=== PATIENT | male | born 1935 | race Caucasian/White ===

== ENCOUNTER → 2017-06-02 11:00 | Outpatient (CLI) | payer MEDICARE, SELFPAY ==
[2017-06-02 12:34] LABS: ALB/GLOB Ratio 1.3 RATIO (0.9-2.4); AST(SGOT) 25 U/L (15-37); Alanine Aminotransfer ALT/SGPT 25 U/L (16-61); Albumin, Serum 3.9 g/dL (3.2-5.0); Alkaline Phosphatase 61 U/L (45-117); Anion Gap 9 (5-15); BUN 21 mg/dL (7-18); BUN/Creat Ratio 18.6 RATIO (10-20); Calcium,Total 8.5 mg/dL (8.5-10.1); Chloride 100 mmol/L (98-107); Creatinine, Serum 1.13 mg/dL (0.70-1.30); EST Glomerular Filtration Rate 66 mL/min (>60); Est Glom Filt Rate - Afr Amer 80 mL/min (>60); Globulin 3.1 g/dL (2.2-4.2); Glucose 90 mg/dL (70-110); Potassium 3.8 mmol/L (3.5-5.1); Sodium Level 137 mmol/L (136-145)
== END ==
PROVIDERS: Nurse Practitioner Family; Family Provider Internal Medicine; PCP Internal Medicine; Visit Provider Internal Medicine
DX: I10 Essential (primary) hypertension (principal)
CPT/HCPCS: 36415; 80053

== ENCOUNTER 2017-10-09 04:00 | Emergency (ER) | payer MEDICARE, SELFPAY ==
--- NOTE | 2017-10-09 04:00 | DT_ITS ---
This patient was seen during an EMR downtime October 05, 2017 - October 12, 2017. This patient may have a combination of paper and electronic documentation or all paper documentation. All documentation is viewable within the e-chart portion of [employer] for each patient visit.
--- NOTE | 2017-10-09 04:00 | RAD_ITS ---
STUDY: X-RAY CHEST REASON FOR EXAM: Male, 81 years old. Trauma TECHNIQUE: Frontal view COMPARISON: None. FINDINGS: The lungs are clear and expanded. There is no demonstrated pleural abnormality. Normal size heart. Normal mediastinum and vy. Normal visualized pulmonary arteries. Normal visualized aortic arch and descending thoracic aorta. Normal visualized thoracic spine. Normal visualized ribs, clavicles, and shoulders. There is no demonstrated abnormality of the visualized soft tissue structures of the upper abdomen. RAD/Chest 1 View IMPRESSION: There is NO acute cardiopulmonary abnormality. Electronically Signed: Kee Wong MD at 5:21 EDT , Service support ,
--- NOTE | 2017-10-09 04:12 | CT_ITS ---
STUDY: CT BRAIN WITHOUT CONTRAST REASON FOR EXAM: Male, 81 years old. Trauma RADIATION DOSAGE (If Supplied By Facility): CTDIvol = ( ) mGy, DLP = ( ) mGycm TECHNIQUE: Transaxial CT imaging of the brain was performed without administration of intravenous contrast material. Individualized dose optimization techniques were used for this CT. COMPARISON: None. FINDINGS: Normal soft tissue structures. Normal calvarium. There is mild cerebral atrophy with widening of the extra-axial spaces and ventricular dilatation. There are areas of decreased attenuation within the white matter tracts of the supratentorial brain, consistent with microvascular disease changes. Normal basal ganglia and thalami. Normal brainstem. There is no intracranial hemorrhage. There are no findings of an acute ischemic infarction. Normal visualized paranasal sinuses. IMPRESSION: There is NO skull fracture or intracranial hemorrhage. Electronically Signed: Kee Wong MD at 5:23 EDT , Service support , STUDY: CT CERVICAL SPINE WITHOUT CONTRAST REASON FOR EXAM: Male, 81 years old. Trauma RADIATION DOSAGE (If Supplied By Facility): CTDIvol = ( ) mGy, DLP = ( ) mGycm TECHNIQUE: High resolution transaxial imaging was performed without contrast material. Sagittal and coronal images were reconstructed. Individualized dose optimization techniques were used for this CT. COMPARISON: None FINDINGS: There are NO fractures. There is grade 1 anterior spondylolisthesis of C4 over C5 due to facet arthropathy. There is loss of disc height with osteophytic ridging at C5-C6. There is NO facet dislocation. The prevertebral soft tissues are normal in thickness. IMPRESSION: There are degenerative changes as noted. There is NO fracture. Electronically Signed: Kee Wong MD at 5:26 EDT , Service support , STUDY: CT FACIAL BONES WITHOUT CONTRAST REASON FOR EXAM: Male, 81 years old. Trauma RADIATION DOSAGE (If Supplied By Facility): CTDIvol = ( ) mGy, DLP = ( ) mGycm TECHNIQUE: The patient was scanned in a multi detector CT scanner. Sagittal and coronal images were reconstructed. Individualized dose optimization techniques were used for this CT. COMPARISON: None. FINDINGS: There is LEFT temporal soft tissue swelling. There is NO hematoma. Normal orbital harkins and orbital contents. Normal nasal bones and anterior nasal spine. Normal facial bones. There is no demonstrated fracture. Normal visualized paranasal sinuses. CT/Sinus/Facial Bone IMPRESSION: There is NO acute bony abnormality. Electronically Signed: Kee Wong MD at 5:28 EDT , Service support ,
--- NOTE | 2017-10-09 04:12 | CT_ITS ---
STUDY: CT BRAIN WITHOUT CONTRAST REASON FOR EXAM: Male, 81 years old. Trauma RADIATION DOSAGE (If Supplied By Facility): CTDIvol = ( ) mGy, DLP = ( ) mGycm TECHNIQUE: Transaxial CT imaging of the brain was performed without administration of intravenous contrast material. Individualized dose optimization techniques were used for this CT. COMPARISON: None. FINDINGS: Normal soft tissue structures. Normal calvarium. There is mild cerebral atrophy with widening of the extra-axial spaces and ventricular dilatation. There are areas of decreased attenuation within the white matter tracts of the supratentorial brain, consistent with microvascular disease changes. Normal basal ganglia and thalami. Normal brainstem. There is no intracranial hemorrhage. There are no findings of an acute ischemic infarction. Normal visualized paranasal sinuses. IMPRESSION: There is NO skull fracture or intracranial hemorrhage. Electronically Signed: Kee Wong MD at 5:23 EDT , Service support , STUDY: CT CERVICAL SPINE WITHOUT CONTRAST REASON FOR EXAM: Male, 81 years old. Trauma RADIATION DOSAGE (If Supplied By Facility): CTDIvol = ( ) mGy, DLP = ( ) mGycm TECHNIQUE: High resolution transaxial imaging was performed without contrast material. Sagittal and coronal images were reconstructed. Individualized dose optimization techniques were used for this CT. COMPARISON: None FINDINGS: There are NO fractures. There is grade 1 anterior spondylolisthesis of C4 over C5 due to facet arthropathy. There is loss of disc height with osteophytic ridging at C5-C6. There is NO facet dislocation. The prevertebral soft tissues are normal in thickness. IMPRESSION: There are degenerative changes as noted. There is NO fracture. Electronically Signed: Kee Wong MD at 5:26 EDT , Service support , STUDY: CT FACIAL BONES WITHOUT CONTRAST REASON FOR EXAM: Male, 81 years old. Trauma RADIATION DOSAGE (If Supplied By Facility): CTDIvol = ( ) mGy, DLP = ( ) mGycm TECHNIQUE: The patient was scanned in a multi detector CT scanner. Sagittal and coronal images were reconstructed. Individualized dose optimization techniques were used for this CT. COMPARISON: None. FINDINGS: There is LEFT temporal soft tissue swelling. There is NO hematoma. Normal orbital harkins and orbital contents. Normal nasal bones and anterior nasal spine. Normal facial bones. There is no demonstrated fracture. Normal visualized paranasal sinuses. CT/Brain/Head without Contrast IMPRESSION: There is NO acute bony abnormality. Electronically Signed: Kee Wong MD at 5:28 EDT , Service support ,
--- NOTE | 2017-10-09 04:12 | CT_ITS ---
STUDY: CT BRAIN WITHOUT CONTRAST REASON FOR EXAM: Male, 81 years old. Trauma RADIATION DOSAGE (If Supplied By Facility): CTDIvol = ( ) mGy, DLP = ( ) mGycm TECHNIQUE: Transaxial CT imaging of the brain was performed without administration of intravenous contrast material. Individualized dose optimization techniques were used for this CT. COMPARISON: None. FINDINGS: Normal soft tissue structures. Normal calvarium. There is mild cerebral atrophy with widening of the extra-axial spaces and ventricular dilatation. There are areas of decreased attenuation within the white matter tracts of the supratentorial brain, consistent with microvascular disease changes. Normal basal ganglia and thalami. Normal brainstem. There is no intracranial hemorrhage. There are no findings of an acute ischemic infarction. Normal visualized paranasal sinuses. IMPRESSION: There is NO skull fracture or intracranial hemorrhage. Electronically Signed: Kee Wong MD at 5:23 EDT , Service support , STUDY: CT CERVICAL SPINE WITHOUT CONTRAST REASON FOR EXAM: Male, 81 years old. Trauma RADIATION DOSAGE (If Supplied By Facility): CTDIvol = ( ) mGy, DLP = ( ) mGycm TECHNIQUE: High resolution transaxial imaging was performed without contrast material. Sagittal and coronal images were reconstructed. Individualized dose optimization techniques were used for this CT. COMPARISON: None FINDINGS: There are NO fractures. There is grade 1 anterior spondylolisthesis of C4 over C5 due to facet arthropathy. There is loss of disc height with osteophytic ridging at C5-C6. There is NO facet dislocation. The prevertebral soft tissues are normal in thickness. IMPRESSION: There are degenerative changes as noted. There is NO fracture. Electronically Signed: Kee Wong MD at 5:26 EDT , Service support , STUDY: CT FACIAL BONES WITHOUT CONTRAST REASON FOR EXAM: Male, 81 years old. Trauma RADIATION DOSAGE (If Supplied By Facility): CTDIvol = ( ) mGy, DLP = ( ) mGycm TECHNIQUE: The patient was scanned in a multi detector CT scanner. Sagittal and coronal images were reconstructed. Individualized dose optimization techniques were used for this CT. COMPARISON: None. FINDINGS: There is LEFT temporal soft tissue swelling. There is NO hematoma. Normal orbital harkins and orbital contents. Normal nasal bones and anterior nasal spine. Normal facial bones. There is no demonstrated fracture. Normal visualized paranasal sinuses. CT/Spine Cervical without Contras IMPRESSION: There is NO acute bony abnormality. Electronically Signed: Kee Wong MD at 5:28 EDT , Service support ,
--- NOTE | 2017-10-09 13:33 | EKG12_ITS ---
Test Reason : FALL Blood Pressure : / mmHG Vent. Rate : 075 BPM Atrial Rate : 075 BPM P-R Int : 216 ms QRS Dur : 110 ms QT Int : 404 ms P-R-T Axes : 047 -48 062 degrees QTc Int : 451 ms Sinus rhythm with 1st degree A-V block Left anterior fascicular block Abnormal ECG Confirmed by KRISHAN JC, TARA ([id number]), order editor KIARA BRANTLEY ([id number]) on 10/14/2017 5:26:12 PM Referred By: Tony Barrera Confirmed By:TARA NICKERSON MD
[2017-10-12 17:26] LABS: Hematocrit 43.2 % (40-54); Hemoglobin 14.6 g/dl (13.0-16.5); Mean Corp Hgb Conc 33.8 g/gl (32-36); Mean Corpuscular Hgb 29.7 pg (27.0-32.0); Mean Corpuscular Volume 87.8 fL (80-94); Mean Platelet Vol. 10.7 fl (6.2-12.0); POSITIVE COUNT NO; POSITIVE DIFFERENTIAL NO; POSITIVE MORPHOLOGY NO; Platelet Count 157 K/mm3 (150-450); RBC Distribution Width CV 14.2 % (11.6-14.6); RBC Distribution Width SD 45.6 fl (35.1-43.9); Red Blood Count 4.92 M/mm3 (4.6-6.2); White Blood Count 7.7 K/mm3 (4.4-11.0)
[2017-10-12 17:27] LABS: Absolute Neutrophil Count 5.6 X10^3/uL (2.0-7.7); Basophil# 0.04 X10^3/uL; Basophil% 0.5 % (0-1); Eosinophil# 0.23 X10^3/uL; International Normalized Ratio 1.2; Lymphocyte % 16.9 % (19-41); Monocyte# 0.53 X10^3/uL; Monocyte% 6.9 % (0-10); Neutrophil # 5.59 X10^3/uL (2.7-7.7); Neutrophil % 72.4 % (47-70); Prothrombin Time (Protime)PT. 14.8 SECONDS (11.7-14.9)
[2017-10-12 22:59] LABS: Anion Gap 11 (5-15); BUN 24 mg/dL (7-18); BUN/Creat Ratio 17.3 RATIO (10-20); Calcium,Total 8.5 mg/dL (8.5-10.1); Chloride 103 mmol/L (98-107); Creatinine, Serum 1.39 mg/dL (0.70-1.30); EST Glomerular Filtration Rate 52 mL/min (>60); Est Glom Filt Rate - Afr Amer 63 mL/min (>60); Glucose 129 mg/dL (74-106); Potassium 3.3 mmol/L (3.5-5.1); Sodium Level 140 mmol/L (136-145)
== END 2017-10-09 06:15 | disposition home or self-care (01) ==
PROVIDERS: Emergency Provider Emergency Medicine; Family Provider Internal Medicine; PCP Internal Medicine
DX: S00.81XA Abrasion of other part of head, initial encounter (principal); S51.012A Laceration without foreign body of left elbow, initial encounter; W19.XXXA Unspecified fall, initial encounter; Y93.9 Activity, unspecified; Y92.009 Unspecified place in unspecified non-institutional (private) residence as the place of occurrence of the external cause; Z86.718 Personal history of other venous thrombosis and embolism; Z79.01 Long term (current) use of anticoagulants; Z79.82 Long term (current) use of aspirin; Z79.899 Other long term (current) drug therapy
CPT/HCPCS: 36415; 70450; 70486; 71045; 72125; 80048; 84484; 85025; 85610; 90715; 93005; 99285

== ENCOUNTER → 2017-10-19 14:55 | Outpatient (CLI) | payer MEDICARE, SELFPAY ==
[2017-10-19 16:40] LABS: International Normalized Ratio 1.1; Prothrombin Time (Protime)PT. 13.8 SECONDS (11.7-14.9)
== END ==
PROVIDERS: Family Provider Internal Medicine; PCP Internal Medicine; Visit Provider Internal Medicine
DX: Z86.718 Personal history of other venous thrombosis and embolism (principal)
CPT/HCPCS: 36415; 85610

== ENCOUNTER → 2018-02-22 10:28 | Outpatient (CLI) | payer MEDICARE, SELFPAY ==
[2018-02-22 12:55] LABS: Anion Gap 10 (5-15); BUN 21 mg/dL (7-18); BUN/Creat Ratio 17.5 RATIO (10-20); Calcium,Total 9.1 mg/dL (8.5-10.1); Chloride 98 mmol/L (98-107); Cholesterol 266 mg/dL (200); EST Glomerular Filtration Rate 62 mL/min (>60); Est Glom Filt Rate - Afr Amer 75 mL/min (>60); Glucose 95 mg/dL (74-106); High Density Lipoprotein 45 mg/dL; Potassium 3.3 mmol/L (3.5-5.1); Sodium Level 137 mmol/L (136-145); Triglycerides 196 mg/dL; Very Low Density Lipoprotein 39 mg/dL (5-40)
== END ==
PROVIDERS: Family Provider Internal Medicine; PCP Internal Medicine; Referring Provider Internal Medicine; Visit Provider Internal Medicine
DX: I10 Essential (primary) hypertension (principal)
CPT/HCPCS: 36415; 80048; 80061

== ENCOUNTER 2018-06-19 05:50 | Emergency (ER) | payer MEDICARE, SELFPAY ==
[2018-03-29 08:17] VITALS: BMI 27.0
[2018-06-19 05:52] VITALS: BP 140/75; PULSE 81; RESP 18; TEMP 37.1; O2SAT 94; BMI 27.6
--- NOTE | 2018-06-19 06:04 | CT_ITS ---
STUDY: CT BRAIN WITHOUT CONTRAST REASON FOR EXAM: Male, 82 years old. Small cell carcinoma RADIATION DOSAGE (If Supplied By Facility): CTDIvol = ( 44.99 ) mGy, DLP = ( 779.24 ) mGycm TECHNIQUE: Transaxial CT imaging of the brain was performed without administration of intravenous contrast material. Individualized dose optimization techniques were used for this CT. COMPARISON: October 09, 2017 FINDINGS: Normal soft tissue structures. Normal calvarium. There is mild cerebral atrophy with widening of the extra-axial spaces and ventricular dilatation. There are areas of decreased attenuation within the white matter tracts of the supratentorial brain, consistent with microvascular disease changes. Normal basal ganglia and thalami. Normal brainstem. There is mild cerebellar atrophy. There is no intracranial hemorrhage. There are no findings of an acute ischemic infarction. Normal visualized paranasal sinuses. CT/Brain/Head without Contrast IMPRESSION: There is NO acute intracranial abnormality. Electronically Signed: Kee Wong MD at 6:58 EST , Service support ,
[2018-06-19 06:44] LABS: Absolute Lymphocyte Count 1.45 X10^3/ul (0.83-4.51); Absolute Neutrophil Count 5.4 X10^3/uL (2.0-7.7); Basophil# 0.04 X10^3/uL; Basophil% 0.5 % (0-1); Eosinophil# 0.44 X10^3/uL; Eosinophils% 5.6 % (0-5); Hematocrit 44.5 % (40-54); Hemoglobin 14.7 g/dl (13.0-16.5); Lymphocyte # 1.45 X10^3/ul (4.0); Lymphocyte % 18.5 % (19-41); Mean Corpuscular Hgb 29.6 pg (27.0-32.0); Mean Corpuscular Volume 89.7 fL (80-94); Mean Platelet Vol. 10.5 fl (6.2-12.0); Monocyte# 0.48 X10^3/uL; Monocyte% 6.1 % (0-10); Neutrophil # 5.39 X10^3/uL (2.7-7.7); Neutrophil % 68.9 % (47-70); Platelet Count 149 K/mm3 (150-450); RBC Distribution Width CV 14.3 % (11.6-14.6); RBC Distribution Width SD 46.6 fl (35.1-43.9); Red Blood Count 4.96 M/mm3 (4.6-6.2); White Blood Count 7.8 K/mm3 (4.4-11.0)
[2018-06-19 06:49] LABS: POSITIVE COUNT NO; POSITIVE DIFFERENTIAL NO; POSITIVE MORPHOLOGY NO
[2018-06-19 06:50] LABS: Prothrombin Time (Protime)PT. 13.2 SECONDS (11.7-14.9)
[2018-06-19 06:52] LABS: Anion Gap 8 (5-15); BUN 23 mg/dL (7-18); BUN/Creat Ratio 18.4 RATIO (10-20); Calcium,Total 8.2 mg/dL (8.5-10.1); Chloride 104 mmol/L (98-107); Creatinine, Serum 1.25 mg/dL (0.70-1.30); EST Glomerular Filtration Rate 59 mL/min (>60); Est Glom Filt Rate - Afr Amer 71 mL/min (>60); Estimated Creatinine Clearance 44.84 ml/min; Glucose 106 mg/dL (74-106); Sodium Level 139 mmol/L (136-145)
--- NOTE | 2018-06-19 07:23 | NURSING ---
FAMILY DR LOPES
--- NOTE | 2018-06-19 07:24 | ED.VISSUMM ---
- ER Visit Summary Date of Service: 06/19/18 Chief Complaint: [] Seizure History of Present Illness: The patient is a 82 M resents with an unresponsive episode possible seizure. His stated he had a tonic-clonic jerky episode while laying in bed for 5 minutes. He did bite his tongue. He had a postictal state. Brought in by EMS. This never happened before. He is on Coumadin for history of a remote DVT. No history no history of CVA TIA or brain lesions Physical Examination: [] Vital signs reviewed General: Well-nourished well-developed Head: Normocephalic atraumatic Eyes: Pupils equal round and reactive to light extraocular movements intact ENT: TMs clear no hemotympanum no trauma the tip of the tongue has a small abrasion Neck: Nontender full range of motion Cardiovascular: Regular rate rhythm no murmurs normal S1-S2 Respiratory: No distress clear to auscultation bilaterally chest nontender Abdomen: Soft nontender nondistended normal bowel sounds no masses Back: Nontender no CVA tenderness Extremities: Nontender active range of motion ?4 extremities no trauma Skin: Normal color no trauma Neuro alert oriented cranial nerves II through XII intact normal strength sensation reflexes Test Results: [] Emergency Department Course and Treatment: [] Lab work obtained. Potassium is 3.0. This was replaced. BUN 23. INR is 1.0. Patient stated that he is only taking his Coumadin every other day because he bruises. Instructed that he has to take it daily or his INR will not be therapeutic. CT head negative. Discussed with Dr. Aviles as the patient does not want to be admitted. Dr. Aviles stated that we should start him on Keppra 500 twice a day. Patient stated he will have his INR rechecked as an outpatient once he is taking it normally for a week. Treatment Plan: [] Disposition: [] Impression: [] New-onset seizure Subtherapeutic INR secondary to not taking it frequent enough This note was generated with [employer] dictation software. It may contain incorrect words, spelling, and punctuation that were not noted in review of the chart prior to signing ED Disposition - Plan for ED Patient: Referrals: Konstantin Monteiro MD [Primary Care Provider] -
--- NOTE | 2018-06-19 07:26 | ED.DEP ---
ED Disposition - Plan for ED Patient: Disposition: Home or Assisted Living Instructions: Seizures and Epilepsy Prescriptions: Levetiracetam [Keppra] 500 mg PO BID 30 Days #60 tab Referrals: Konstantin Monteiro MD [Primary Care Provider] - Kwabena Aviles MD [STAFF PHYSICIAN] -
[2018-06-19] MEDS: levETIRAcetam 500 MG Tablet PO (07:45)
[2018-06-19 08:23] VITALS: BP 126/79; PULSE 66; RESP 16; O2SAT 95
[2018-06-19 08:24] VITALS: BP 126/79; PULSE 66; RESP 16; O2SAT 95
== END 2018-06-19 08:30 | disposition home or self-care (01) ==
PROVIDERS: Emergency Provider Emergency Medicine; Family Provider Internal Medicine; PCP Internal Medicine
DX: R56.9 Unspecified convulsions (principal); I25.10 Atherosclerotic heart disease of native coronary artery without angina pectoris; I10 Essential (primary) hypertension; N40.0 Benign prostatic hyperplasia without lower urinary tract symptoms; Z86.718 Personal history of other venous thrombosis and embolism; Z79.01 Long term (current) use of anticoagulants; Z79.82 Long term (current) use of aspirin; Z79.899 Other long term (current) drug therapy
CPT/HCPCS: 70450; 80048; 85025; 85610; 99284; A4216

== ENCOUNTER → 2018-06-22 11:39 | Outpatient (CLI) | payer MEDICARE, SELFPAY ==
[2018-06-19 05:52] VITALS: BMI 27.6
[2018-06-22 14:11] LABS: Anion Gap 8 (5-15); BUN 22 mg/dL (7-18); Calcium,Total 8.6 mg/dL (8.5-10.1); Chloride 102 mmol/L (98-107); Creatinine, Serum 1.22 mg/dL (0.70-1.30); EST Glomerular Filtration Rate 61 mL/min (>60); Est Glom Filt Rate - Afr Amer 73 mL/min (>60); Glucose 95 mg/dL (74-106); Potassium 3.5 mmol/L (3.5-5.1); Sodium Level 138 mmol/L (136-145)
[2018-06-22 14:13] LABS: Prothrombin Time (Protime)PT. 13.3 SECONDS (11.7-14.9)
== END ==
PROVIDERS: Nurse Practitioner Family; Family Provider Internal Medicine; PCP Internal Medicine; Referring Provider Internal Medicine; Visit Provider Internal Medicine
DX: E87.6 Hypokalemia (principal); Z79.01 Long term (current) use of anticoagulants
CPT/HCPCS: 36415; 80048; 85610

== ENCOUNTER → 2018-09-28 08:23 | Outpatient (CLI) | payer MEDICARE, SELFPAY ==
[2018-09-28 08:08] VITALS: BMI 27.6
[2018-09-28 12:49] LABS: Anion Gap 10 (5-15); BUN 20 mg/dL (7-18); BUN/Creat Ratio 14.7 RATIO (10-20); Calcium,Total 8.9 mg/dL (8.5-10.1); Chloride 104 mmol/L (98-107); Creatinine, Serum 1.36 mg/dL (0.70-1.30); EST Glomerular Filtration Rate 53 mL/min (>60); Est Glom Filt Rate - Afr Amer 65 mL/min (>60); Glucose 101 mg/dL (74-106); Potassium 3.7 mmol/L (3.5-5.1); Sodium Level 139 mmol/L (136-145)
== END ==
PROVIDERS: Family Provider Internal Medicine; PCP Internal Medicine; Visit Provider Internal Medicine
DX: I10 Essential (primary) hypertension (principal); E87.6 Hypokalemia
CPT/HCPCS: 36415; 80048

== ENCOUNTER → 2019-04-06 08:52 | Outpatient (CLI) | payer MEDICARE, SELFPAY ==
[2019-04-06 08:35] VITALS: BMI 27.6
[2019-04-06 12:45] LABS: Absolute Lymphocyte Count 1.51 X10^3/uL (0.83-4.51); Absolute Neutrophil Count 4.1 X10^3/uL (2.0-7.7); Basophil# 0.06 X10^3/uL; Basophil% 0.9 % (0-1); Eosinophil# 0.35 X10^3/uL; Eosinophils% 5.3 % (0-5); Hematocrit 46.8 % (40-54); Hemoglobin 15.7 g/dL (13.0-16.5); Lymphocyte # 1.51 X10^3/ul (4.0); Lymphocyte % 22.7 % (19-41); Mean Corp Hgb Conc 33.5 g/dL (32-36); Mean Corpuscular Hgb 30.1 pg (27.0-32.0); Mean Corpuscular Volume 89.7 fL (80-94); Monocyte# 0.64 X10^3/uL; Monocyte% 9.6 % (0-10); NRBC Flagged by Analyzer 0 % (0-5); Neutrophil # 4.05 X10^3/uL (2.7-7.7); Platelet Count 172 K/mm3 (150-450); RBC Distribution Width CV 14.1 % (11.6-14.6); RBC Distribution Width SD 46.4 fl (35.1-43.9); Red Blood Count 5.22 M/mm3 (4.6-6.2); White Blood Count 6.6 K/mm3 (4.4-11.0)
[2019-04-06 13:27] LABS: ALB/GLOB Ratio 1.1 RATIO (0.9-2.4); AST(SGOT) 20 U/L (15-37); Alanine Aminotransfer ALT/SGPT 21 U/L (16-61); Albumin, Serum 3.8 g/dL (3.2-5.0); Alkaline Phosphatase 68 U/L (45-117); Anion Gap 8 (5-15); BUN 24 mg/dL (7-18); Calcium,Total 8.8 mg/dL (8.5-10.1); Chloride 103 mmol/L (98-107); Creatinine, Serum 1.41 mg/dL (0.70-1.30); EST Glomerular Filtration Rate 51 mL/min (>60); Est Glom Filt Rate - Afr Amer 62 mL/min (>60); Globulin 3.5 g/dL (2.2-4.2); Glucose 91 mg/dL (74-106); Potassium 3.7 mmol/L (3.5-5.1); Protein, Total 7.3 g/dL (6.4-8.2); Sodium Level 138 mmol/L (136-145)
== END ==
PROVIDERS: Family Provider Internal Medicine; PCP Internal Medicine; Visit Provider Internal Medicine
DX: R56.9 Unspecified convulsions (principal); I10 Essential (primary) hypertension
CPT/HCPCS: 36415; 80053; 85025

== ENCOUNTER → 2020-02-22 15:31 | Outpatient (CLI) | payer MEDICARE, SELFPAY ==
[2020-02-22 14:56] VITALS: BMI 26.6
[2020-02-22 15:34] LABS: Bacteria 0 SEEN /hpf (None Seen); Mucous, Urine 0 SEEN /hpf (<or=2+); White Blood Cells 0 SEEN /hpf (0-5)
--- NOTE | 2020-02-22 16:00 | RAD_ITS ---
STUDY: X-RAY - ABDOMEN/PELVIS REASON FOR EXAM: Male, 84 years old. Lower back pain radiating into the abdomen. Hematuria. TECHNIQUE: Two AP supine views of the abdomen and pelvis. COMPARISON: CT of the abdomen and pelvis, 01/31/2012. FINDINGS: Normal visualized lung bases. There is evidence of median sternotomy. The heart is normal in size. There is an unremarkable bowel gas pattern. There is no evidence of obstruction. There is no small bowel dilatation. There is no demonstrated free abdominal air. The visualized liver, spleen and kidneys are grossly normal in size and morphology. Normal soft tissue structures. There are diffuse degenerative changes of the visualized lumbar spine. RAD/Abdomen Single View IMPRESSION: No evidence of acute intra-abdominal or pelvic process. Electronically Signed: Esvin Ashraf DO at 17:04 EDT Tel [phone], Service support ,
[2020-02-22 17:50] LABS: Color, Urine Yellow (Yellow); Glucose, Dipstick Normal (Normal); Ketone-Dipstick Negative (Negative); Leukocyte Esterase-Dipstick Negative /ul (Negative); Nitrite-Dipstick Negative (Negative); Occult Blood-Urine 150 /ul (Negative); Protein-Dipstick 30 mg/dl (Negative); Specific Gravity, Urine 1.015 (1.002-1.030); Urine Bilirubin Dipstick Negative (Negative); Urine Clarity Clear (Clear); Urine Urobilinogen Normal (Normal); Urine pH 6.5 (5.0 - 8.0)
[2020-02-22 18:08] LABS: Red Blood Cells-Urine 5-10 SEEN /hpf (0-5); Squamous Epithelial Cells - UA 0-5 SEEN /hpf (0-5)
== END ==
PROVIDERS: PCP Internal Medicine; Referring Provider Nurse Practitioner Family; Visit Provider Nurse Practitioner Family
DX: R10.9 Unspecified abdominal pain (principal); R31.9 Hematuria, unspecified; N40.0 Benign prostatic hyperplasia without lower urinary tract symptoms
CPT/HCPCS: 74018; 81001; 87086; 87088

== ENCOUNTER 2020-02-25 03:53 | Emergency (ER) | payer MEDICARE, SELFPAY ==
[2020-02-22 14:56] VITALS: BMI 26.6
[2020-02-25 03:54] VITALS: BP 168/83; PULSE 85; RESP 18; TEMP 36.8; O2SAT 95; BMI 27.5
--- NOTE | 2020-02-25 04:02 | CT_ITS ---
HISTORY: SEIZURE/HX OF SEIZURES, aortic valve replacement, HTN, HLD,BPH and basal cell ca ADDITIONAL HISTORY: None provided. COMPARISON: 06/19/2018 EXAMINATION/TECHNIQUE: CT Head or Brain W/O Contrast Injection. Axial, coronal and sagittal images. Number of images including paperwork: 250. A radiation dose optimization technique was used for this scan. FINDINGS: BRAIN: No acute hemorrhage or mass. No definite acute infarct; MRI more sensitive. White matter hypodensity is nonspecific but most commonly seen with chronic ischemic changes. Generalized atrophy. VENTRICULAR SYSTEM: No hydrocephalus. PARANASAL SINUSES AND MASTOIDS: No air-fluid level in the imaged extent. Mild mucosal thickening noted. ORBITS: Unremarkable imaged extent. SKELETON AND SOFT TISSUES: Calvarium intact. ASPECTS score: Not applicable. CT/Brain/Head without Contrast IMPRESSION: No acute intracranial abnormality. Chronic involutional and white matter changes. Individualized dose optimization techniques were used for this CT. at 0500 Reported and signed by: Divya Garcia MD Electronically Signed: Divya Garcia MD at 5:00 EDT Tel , Service support ,
--- NOTE | 2020-02-25 04:02 | EKG12_ITS ---
Test Reason : SEIZURE Blood Pressure : / mmHG Vent. Rate : 065 BPM Atrial Rate : 065 BPM P-R Int : 208 ms QRS Dur : 114 ms QT Int : 420 ms P-R-T Axes : 048 -52 078 degrees QTc Int : 436 ms Normal sinus rhythm with sinus arrhythmia Left anterior fascicular block Poor R wave progression Inferior LA, age undetermined, cannot be excluded Abnormal ECG Confirmed by ANIA JC, REMI ([id number]), material expeditor MADHURI BARTON ([id number]) on 02/27/2020 11:42:08 AM Referred By: BECCA Confirmed By:REMI JORGE MD
--- NOTE | 2020-02-25 04:03 | ED.DCSUM_ITS ---
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 pt states he currently feels fine. Narrative: 84-year-old male presents by EMS at 4 AM for a seizure that he had while he was sleeping. His sleeps in a different room because of snoring, she heard a loud sound that woke her up, found him in the bed shaking. He did not fall. No recent injuries, no recent illnesses. He had 2 seizures in the past. Around 2 years ago, he was placed on Keppra for that reason. He has had no seizure since. As a result, the patient himself decided to discontinue his own Keppra about a month ago. He and his are unsure of the reason that he has seizures. He takes no anticoagulants and states he has been compliant with his other medications. - Past Medical History (1) History of basal cell carcinoma Status: Chronic (2) History of deep venous thrombosis Status: Chronic (3) Hypokalemia Status: Chronic (4) Aortic valve disease Status: Chronic (5) BPH (benign prostatic hyperplasia) Status: Chronic (6) Coronary heart disease Status: Chronic (7) Hyperlipidemia Status: Chronic (8) Hypertension Status: Chronic Past Medical History - Allergies and Home Meds Allergies/Adverse Reactions: Allergies No Known Allergies Allergy (Verified 02/25/20 03:54) Primary Care Physician: Konstantin Monteiro MD [Primary Care Provider] - 1 Week Surgical History: - - Aortic valve replacement Lives: Spouse/ Significant Other Smoking Status: Never smoker Review of Systems General: Denies: Chills, Fever, Sweats Eyes: Denies: Visual changes - bilaterally, Diplopia ENT: Denies: Rhinorrhea, Sore throat Cardiovascular: Denies: Chest pain, Palpitations Respiratory: Denies: Dyspnea, Cough, Dyspnea on exertion Gastrointestinal: Denies: Abdominal pain, Nausea, Vomiting, Diarrhea, Melena, Hematochezia Genitourinary: Denies: Dysuria, Hematuria, Frequency Musculoskeletal: Denies: Back pain, Extremity Pain Skin: Denies: Rash, Wounds Neurological: Denies: Headache, Weakness, Numbness Physical Exam Vital Signs/Narrative: Vital Signs Temp Pulse Resp BP Pulse Ox 02/25/20 03:54 98.3 F 85 18 168/83 H 95 Inital Vital Signs reviewed: Yes General: Well nourished, Well developed, No Acute Distress Head: Normocephalic, Atraumatic Eyes: Perrl, EOMI ENT: Moist mucous membranes, No rhinorrhea Neck: Supple, Nontender, No JVD Cardiovascular: Regular rate, Regular rhythm, Murmur - Harsh crescendo- decrescendo systolic 3/6 Respiratory: No distress, CTA bilaterally, Chest nontender Abdomen: Soft, Nontender, Nondistended, Normal bowel sounds Back: Nontender, Normal Inspection Extremities: Nontender, No edema. Negative for: Calf Tenderness Skin: Normal color, No rash, No Trauma Neurological: Alert, Oriented x3, Cranial nerves II-XII grossly intact, Normal Strength, Normal Sensation Psychological: Normal affect, Normal Mood Diagnostic/Tx/Re-eval Impressions Brain CT 02/25/20 04:02 IMPRESSION: No acute intracranial abnormality. Chronic involutional and white matter changes. Individualized dose optimization techniques were used for this CT. at 0500 Reported and signed by: Divya Garcia MD Electronically Signed: Divya Garcia MD at 5:00 EDT Tel , Service support , 02/25/20 04:02 Brain/Head without Contrast [CT] Stat Laboratory Results 02/25/20 02/25/20 04:05 04:05 WBC 8.4 RBC 5.05 Hgb 15.1 Hct 45.6 MCV 90.3 MCH 29.9 MCHC 33.1 RDW Std Deviation 46.3 H RDW Coeff of Cristhian 13.9 Plt Count 165 MPV 10.6 Immature Gran % (Auto) 0.500 Neut % (Auto) 70.2 H Lymph % (Auto) 17.4 L Ulster % (Auto) 7.5 Eos % (Auto) 3.8 Baso % (Auto) 0.6 Absolute Neuts (auto) 5.9 Absolute Lymphs (auto) 1.46 Nucleated RBC % 0 Sodium 136 Potassium 4.6 Chloride 102 Carbon Dioxide 27.0 Anion Gap 7 BUN 24 H Creatinine 1.49 H Estim Creat Clear Calc 36.34 Est GFR (MDRD) Af Amer 58 L Est GFR (MDRD) Non-Af 48 L BUN/Creatinine Ratio 16.1 Glucose 115 H Calcium 8.6 - Rhythm Strip Rhythm Strip: Sinus Rhythm Rate: 65 Ectopy: None - EKG Initial EKG Interpretation: Sinus Rhythm, No Acute Injury Pattern, LAFB Prior: Unchanged - Medical Decision Making As above work-up negative/unremarkable. Patient had no further seizure activity in the emergency department. His arrived, and later we all spoke, they think that they were told at [facility] that his seizures were likely related to his sleep apnea, which certainly could be the case especially since he had a seizure this morning while sleeping. He was loaded with IV Keppra 1000 mg. I think he is stable to be discharged home to continue his previously prescribed dose of Keppra. Advised to follow-up. He and are comfortable with that plan. ED Disposition - Plan for ED Patient: Disposition: Home or Assisted Living Diagnosis: Seizure, History of seizure disorder, KRISTEN (obstructive sleep apnea), Noncompliance with medication regimen Instructions: ED Seizure Recurrent Adult Referrals: Konstantin Monteiro MD [Primary Care Provider] - 1 Week Additional Instructions: Resume taking your Keppra at the previously prescribed dosage.
[2020-02-25 04:11] LABS: Absolute Lymphocyte Count 1.46 X10^3/uL (0.83-4.51); Absolute Neutrophil Count 5.9 X10^3/uL (2.0-7.7); Basophil# 0.05 X10^3/uL; Basophil% 0.6 % (0-1); Eosinophil# 0.32 X10^3/uL; Eosinophils% 3.8 % (0-5); Hematocrit 45.6 % (40-54); Hemoglobin 15.1 g/dL (13.0-16.5); Lymphocyte # 1.46 X10^3/ul (4.0); Lymphocyte % 17.4 % (19-41); Mean Corp Hgb Conc 33.1 g/dL (32-36); Mean Corpuscular Hgb 29.9 pg (27.0-32.0); Mean Corpuscular Volume 90.3 fL (80-94); Mean Platelet Vol. 10.6 fl (6.2-12.0); Monocyte# 0.63 X10^3/uL; Monocyte% 7.5 % (0-10); NRBC Flagged by Analyzer 0 % (0-5); Neutrophil % 70.2 % (47-70); Platelet Count 165 K/mm3 (150-450); RBC Distribution Width CV 13.9 % (11.6-14.6); RBC Distribution Width SD 46.3 fl (35.1-43.9); Red Blood Count 5.05 M/mm3 (4.6-6.2); White Blood Count 8.4 K/mm3 (4.4-11.0)
[2020-02-25 04:34] LABS: Anion Gap 7 (5-15); BUN 24 mg/dL (7-18); BUN/Creat Ratio 16.1 RATIO (10-20); Calcium,Total 8.6 mg/dL (8.5-10.1); Chloride 102 mmol/L (98-107); Creatinine, Serum 1.49 mg/dL (0.70-1.30); EST Glomerular Filtration Rate 48 mL/min (>60); Est Glom Filt Rate - Afr Amer 58 mL/min (>60); Estimated Creatinine Clearance 36.34 ml/min; Glucose 115 mg/dL (74-106); Potassium 4.6 mmol/L (3.5-5.1); Sodium Level 136 mmol/L (136-145)
[2020-02-25] MEDS: levETIRAcetam IV 1,000 MG/100 ML BAG 400 MG IV (04:45)
[2020-02-25 05:23] VITALS: BP 138/75; PULSE 68; RESP 14; O2SAT 98
== END 2020-02-25 05:23 | disposition home or self-care (01) ==
LOC: ED 04:52
PROVIDERS: Emergency Provider Emergency Medicine; PCP Internal Medicine
DX: G40.909 Epilepsy, unspecified, not intractable, without status epilepticus (principal); G47.33 Obstructive sleep apnea (adult) (pediatric); I25.10 Atherosclerotic heart disease of native coronary artery without angina pectoris; I10 Essential (primary) hypertension; Z91.14 Patient's other noncompliance with medication regimen; Z86.718 Personal history of other venous thrombosis and embolism; Z85.828 Personal history of other malignant neoplasm of skin; Z79.82 Long term (current) use of aspirin
CPT/HCPCS: 70450; 80048; 85025; 93005; 96365; 99285; A4216

== ENCOUNTER → 2020-02-27 11:08 | Outpatient (CLI) | payer MEDICARE, SELFPAY ==
[2020-02-25 03:54] VITALS: BMI 27.5
[2020-02-27 11:10] LABS: Bacteria 0 SEEN /hpf (None Seen); Mucous, Urine 0 SEEN /hpf (<or=2+); Red Blood Cells-Urine 0 SEEN /hpf (0-5); Squamous Epithelial Cells - UA 0 SEEN /hpf (0-5); White Blood Cells 0 SEEN /hpf (0-5)
[2020-02-27 12:44] LABS: Color, Urine Yellow (Yellow); Glucose, Dipstick Normal (Normal); Ketone-Dipstick Negative (Negative); Leukocyte Esterase-Dipstick Negative /ul (Negative); Nitrite-Dipstick Negative (Negative); Occult Blood-Urine 25 /ul (Negative); Protein-Dipstick 15 mg/dl (Negative); Specific Gravity, Urine 1.015 (1.002-1.030); Urine Bilirubin Dipstick Negative (Negative); Urine Clarity Clear (Clear); Urine Urobilinogen Normal (Normal)
== END ==
PROVIDERS: Nurse Practitioner Family; PCP Internal Medicine; Visit Provider Internal Medicine
DX: R31.9 Hematuria, unspecified (principal)
CPT/HCPCS: 81001

== ENCOUNTER → 2020-04-17 10:37 | Outpatient (CLI) | payer MEDICARE, SELFPAY ==
[2020-03-05 14:25] VITALS: BMI 26.7
--- NOTE | 2020-04-17 11:03 | EKG12_ITS ---
Test Reason : Blood Pressure : / mmHG Vent. Rate : 049 BPM Atrial Rate : 049 BPM P-R Int : 220 ms QRS Dur : 096 ms QT Int : 434 ms P-R-T Axes : 045 -57 071 degrees QTc Int : 392 ms Sinus bradycardia with 1st degree A-V block Left axis deviation Poor R wave progression Abnormal ECG Confirmed by ANIA JC, REMI ([id number]), editor department MADHURI BARTON ([id number]) on 04/18/2020 9:40:11 AM Referred By: Konstantin Monteiro Confirmed By:REMI JORGE MD
[2020-04-19 22:47] LABS: KEPPRA (LEVETIRACETAM) 14.8 ug/mL (10.0-40.0)
== END ==
PROVIDERS: PCP Internal Medicine; Referring Provider Internal Medicine; Visit Provider Internal Medicine
DX: I25.10 Atherosclerotic heart disease of native coronary artery without angina pectoris (principal); R07.9 Chest pain, unspecified; I10 Essential (primary) hypertension
CPT/HCPCS: 36415; 80177; 84484; 93005

== ENCOUNTER → 2021-03-04 10:32 | Outpatient (CLI) | payer MEDICARE, SELFPAY ==
--- NOTE | 2021-03-04 10:35 | EKG12_ITS ---
Test Reason : MURMUR Blood Pressure : / mmHG Vent. Rate : 056 BPM Atrial Rate : 056 BPM P-R Int : 216 ms QRS Dur : 100 ms QT Int : 432 ms P-R-T Axes : 064 -54 004 degrees QTc Int : 416 ms Sinus bradycardia with 1st degree A-V block Left axis deviation Inferior infarct , age undetermined , cannot be excluded Poor R wave progression Abnormal ECG Confirmed by ANIA JC, REMI ([id number]), advertising editor MADHURI BARTON ([id number]) on 03/05/2021 9:51:49 AM Referred By: Omi Antunez Confirmed By:REMI JORGE MD
--- NOTE | 2021-03-04 10:40 | ECHOCS_ITS ---
Reason For Study: Murmur Procedure This was a 2D Doppler, Color Flow transthoracic echocardiogram. Contrast injection was performed. Exam performed in department. Left Ventricle Normal LV size. Left ventricular systolic function is normal. The estimated ejection fraction is 65 %. Diastolic function is indeterminate. No regional wall motion abnormalities noted. Right Ventricle Normal RV size. Normal systolic function. Atria Normal left atrium. Normal right atrium. No doppler evidence for ASD. Mitral Valve There is no mitral annular calcification. Mild diffuse mitral valve thickening. Mild (1+) mitral valve insufficiency. Tricuspid Valve Normal tricuspid valve. Trivial tricuspid valve insufficiency. Right ventricular systolic pressure estimated to be 27 mmHg. Aortic Valve The aortic valve is not well visualized, however, based upon the 2D echocardiographic images obtained there appears to be a stable appearing bioprosthetic aortic valve with spectral Doppler findings compatible with moderate to severe aortic valve stenosis. Pulmonic Valve The pulmonic valve is not well visualized. Mild (1+) pulmonic valve insufficiency. Great Vessels Normal sized aortic root. Pericardium/Pleural No pericardial effusion. Medication Diluted definity 2ml given slow IV push to enhance endocardial definition. MMode/2D Measurements & Calculations LVIDd: 4.5 cm IVSd: 1.1 cm LVOT diam: 2.0 cm LVIDs: 2.7 cm LVPWd: 1.0 cm FS: 40.2 % LVOT area: 3.1 cm2 Ao root diam: 3.1 cm LAV(MOD-bp): 49.3 ml LA A4 area: 17.7 cm2 LAV(MOD-bp) Indexed: 25.8 ml/m2 LAV(MOD-sp2): 52.8 ml LAV(MOD-sp4): 42.4 ml LA dimension(2D): 4.0 cm RA A4 area: 16.1 cm2 Doppler Measurements & Calculations MV E max cesar: 84.7 cm/sec Lat Peak E' Cesar: 7.3 cm/sec Med Peak E' Cesar: 4.5 cm/sec MV A max ceasr: 106.2 cm/sec E/E' lat: 11.6 E/E' med: 18.7 MV E/A: 0.80 Ao V2 max: 350.0 cm/sec LV V1 max: 97.6 cm/sec SV(LVOT): 73.7 ml Ao max P.0 mmHg LV V1 max P.8 mmHg Ao V2 mean: 247.5 cm/sec LV V1 mean P.0 mmHg Ao mean P.3 mmHg LV V1 mean: 67.5 cm/sec Ao V2 VTI: 78.4 cm LV V1 VTI: 24.1 cm MEREDITH(I,D): 0.94 cm2 MEREDITH(V,D): 0.85 cm2 PA V2 max: 100.2 cm/sec PI end-d cesar: 110.7 cm/sec TR max cesar: 242.1 cm/sec TR max P.5 mmHg ECHO/Echo Complete W/ Contrast Interpretation Summary Left ventricular systolic function is normal. The estimated ejection fraction is 65 %. Mild diffuse mitral valve thickening. Mild (1+) mitral valve insufficiency. Trivial tricuspid valve insufficiency. The aortic valve is not well visualized, however, based upon the 2D echocardiog raphic images obtained there appears to be a stable appearing bioprosthetic aortic valve with spectral Doppler findings compatible with moderate to severe aortic valve stenosis. Mild (1+) pulmonic valve insufficiency. Right ventricular systolic pressure estimated to be 27 mmHg. Diastolic function is indeterminate. Ordering Physician: Konstantin Monteiro Referring Physician: Omi Antunez Performed By: Cortney Daugherty, RDCHAMP, RVT
== END ==
PROVIDERS: PCP Internal Medicine; Referring Provider Nurse Practitioner Family; Visit Provider Nurse Practitioner Family
DX: R01.1 Cardiac murmur, unspecified (principal); I35.9 Nonrheumatic aortic valve disorder, unspecified; I25.10 Atherosclerotic heart disease of native coronary artery without angina pectoris
CPT/HCPCS: 93005; 93306; Q9957; A4216; C8929

== ENCOUNTER 2021-06-19 11:47 | Emergency (ER) | payer MEDICARE, SELFPAY ==
[2021-06-19 11:49] VITALS: BP 147/73; PULSE 73; RESP 18; TEMP 36; O2SAT 98; BMI 27.2
--- NOTE | 2021-06-19 12:13 | VDLE_ITS ---
Reason For Study: Pain RIGHT LEFT CFV is compressible, spontaneous, phasic, GSV is normal. competent and demonstrates normal T/P Trunk is compressible. augmentation. PTV is compressible. Procedure LT PerV is compressible. This is a venous duplex using B-mode, color CFV is partially noncompressible with flow and spectral Doppler. hypoechoic intraluminal echoes consistent Exam performed portable in ED. with acute DVT. Thrombus in CFV is extending A preliminary report was called and/or faxed from the profunda vein. to ED. Profunda vein is partially compressible with bright intraluminal echoes consistent with chronic DVT. FV is partially comprssible with bright intraluminal echoes throughtout, normal phasic venous flow noted. PopV is partially noncompressible with acute on chronic DVT, minimal flow noted. Thrombus filled varicose veins noted in the prox-mid calf. VL/Venous Duplex US, Unilateral Interpretation Summary Acute deep venous thrombosis left profundofemoral vein and common femoral vein. Likely chronic deep venous versus left femoral and popliteal vein but additiona l component of acute disease difficult to decipher. Superficial thrombophlebitis varicose veins left proximal to mid calf Normal flow patterns right common femoral vein Ordering Physician: Nir Villarreal Referring Physician: Konstantin Monteiro Performed By: Ailyn Vazquez RVT
[2021-06-19 14:13] LABS: Partial Thromboplast Time 20.6 Seconds (24.1-36.2); Prothrombin Time (Protime)PT. 12.5 SECONDS (11.7-14.9)
--- NOTE | 2021-06-19 14:20 | CM.ED ---
Social Work Consult: Prescription assistance. Informant: Dr. Villarreal. Met with patient in room. Introduced self and social work supervisor role. Patient spouse also present. Patient agreeable to speak with this social work supervisor. This social work supervisor inquired about prescription drug coverage for patient. Patient confirms to not have prescription drug coverage, I have never needed it. Patient reports to be very active. Patient already provided with 30-day coupon for Eliques. This social work supervisor provided patient with prescription assistance program options for patient. Patient also plans to speak with primary care doctor about other options. Patient denies concerns on returning to community. Dr. Villarreal updated. No further services indicated at this time. Kenisha Meneses MSW, JOSEPH-S
[2021-06-19 14:21] LABS: ALB/GLOB Ratio 1.2 RATIO (0.9-2.4); AST(SGOT) 23 U/L (15-37); Alanine Aminotransfer ALT/SGPT 22 U/L (16-61); Albumin, Serum 3.8 g/dL (3.2-5.0); Alkaline Phosphatase 71 U/L (45-117); Anion Gap 8 (5-15); BUN 24 mg/dL (7-18); BUN/Creat Ratio 20.2 RATIO (10-20); Calcium,Total 8.7 mg/dL (8.5-10.1); Chloride 105 mmol/L (98-107); Creatinine, Serum 1.19 mg/dL (0.70-1.30); EST Glomerular Filtration Rate 62 mL/min (>60); Est Glom Filt Rate - Afr Amer 75 mL/min (>60); Globulin 3.3 g/dL (2.2-4.2); Glucose 99 mg/dL (74-106); Potassium 3.5 mmol/L (3.5-5.1); Protein, Total 7.1 g/dL (6.4-8.2); Sodium Level 135 mmol/L (136-145)
--- NOTE | 2021-06-19 15:15 | EDS_ITS ---
HPI History of Present Illness Chief Complaint: Lower Extremity Injury Informant: patient and spouse/S.O. Narrative Narrative: Patient presents with concerns for superficial clot left leg over 2 days. Noticed some pain along the region. He has been using compression stockings. He reports a DVT in his left leg 8 years ago after aortic valve surgery. He is currently not on any anticoagulants. Initially was on Coumadin then use Lovenox twice a day and this was stopped. He denies chest pains or shortness of breath. There is no swelling of the leg. [facility] Medical History Aortic valve disease Coronary heart disease Heart murmur Heart valve problem History of basal cell carcinoma History of deep venous thrombosis Hypertension Hypokalemia Seizure Home Medications aspirin 81 mg tablet,delayed release 81 mg PO DAILY 02/22/20 [History Last Taken Unknown] Hydrochlorothiazide 12.5 mg PO DAILY 02/25/20 [History Last Taken Unknown] Handicap Placard #1 ea 02/14/21 [Rx Last Taken Unknown] hydrochlorothiazide 25 mg tablet 25 mg PO QAM #60 tab 04/29/21 [Rx Last Taken Unknown] levetiracetam 500 mg tablet 250 mg PO BID #60 tab 04/29/21 [Rx Last Taken Unknown] losartan 25 mg tablet 25 mg PO DAILY #90 tab 04/29/21 [Rx Last Taken Unknown] metoprolol tartrate 25 mg tablet 12.5 mg PO DAILY #90 tab 04/29/21 [Rx Last Taken Unknown] apixaban [Eliquis DVT-PE Treat 30D Start] 5 mg PO BID #74 tab 06/19/21 [Rx Last Taken Unknown] warfarin 5 mg PO DAILY #30 tab 06/19/21 [Rx Last Taken Unknown] Allergy/AdvReac Type Severity Reaction Status Date / Time No Known Allergies Allergy Verified 06/19/21 11:50 Family History Mother CVA (cerebral vascular accident) Hypertension Father CVA (cerebral vascular accident) Surgical History H/O aortic valve replacement History of prostate surgery History of shoulder surgery Social History Smoking Status: Never smoker alcohol intake: current alcohol intake frequency: holidays/special occasions only Alcohol type: wine substance use type: does not use what type of physical activity do you participate in: walking frequency: daily ROS ROS ED Constitutional Constitutional ED: Denies chills, fever(s) or sweats Eyes Eyes: Denies change in vision ENT ENT ED: Denies dysphagia or sore throat Cardiovascular Cardiovascular: Denies chest pain, leg edema, palpitations or racing heartbeat Respiratory/Chest Respiratory/Chest: Denies cough, dyspnea or dyspnea on exertion Gastrointestinal Gastrointestinal: Denies abdominal pain, diarrhea, nausea or vomiting Genitourinary Genitourinary ED: Denies dysuria, hematuria or urinary frequency Musculoskeletal Musculoskeletal: Reports other Details: Left leg pain ; Denies back pain, extremity pain or neck pain Integumentary Denies rash or wounds Neurologic Neurologic: Denies headache(s), paresthesias or weakness EXAM Physical Exam Const Vital Signs: 06/19/21 11:49 06/19/21 15:25 Temperature 96.8 F L Temperature Source Temporal Pulse Rate 73 60 Respiratory Rate 18 18 Blood Pressure 147/73 H 185/81 H Blood Pressure Mean 97 Pulse Ox 98 Oxygen Delivery Method Room Air Positive well nourished and well developed General Appearance ED: well developed and NAD HEENT Reports moist mucous membranes normocephalic and atraumatic Eyes PERRL, EOMs intact bilaterally and conjunctivae normal General Eye ED: Yes normal appearance of both eyes Neck no lymphadenopathy and supple General: Negative for tenderness Chest Wall Chest: Negative for tenderness Resp normal respiratory effort and normal air movement Effort and Inspection: symmetric chest movement; Negative for respiratory distress Cardio regular rate, regular rhythm and no murmurs Peripheral Pulses: pulses 2+ throughout GI normal to inspection, nondistended, normoactive bowel sounds and non-tender Palpation: Negative for guarding or rebound tenderness present Back/Spine no CVA tenderness and no thoracic nor lumbar tenderness Extremity Extremity Narrative: Left lower extremity: No swelling. No medial thigh or calf tenderness. There is tenderness along the medial anterior aspect. Of the leg mild erythema. Pulses were intact distally. General Extremety ED: Negative for edema or tenderness General Extremity: Negative for edema Neuro oriented x3 and no sensory deficits noted Sensorium / Orientation: awake and alert Skin no rashes or lesions noted and no wounds MDM MDM MDM Narrative Medical decision making narrative: Patient had PV studies of the left lower leg, notes a superficial thrombophlebitis clinically found. However also notes acute deep vein thrombosis of the left profundofemoral vein and common femoral vein. Appears to have a chronic deep venous versus left femoral and popliteal vein but there is no acute components were noted. Patient had labs back in February had a creatinine 1.46 GFR 44. I rechecked labs creatinine 1.9 GFR 62. INR is 1.0. Patient currently does not have insurance for prescription coverage. I had social work evaluate the patient to help with resources. 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 There is a starter pack provided for emergency part for a month supply of Eliquis. He is given his first dose in the ED. Also discussed with his PCP Dr. Monteiro, who knows the patient well. Discussed bridging the patient on Coumadin starting today and he will be seen Thursday in the office for INR checks and continued management of his anticoagulation is DVT. This was discussed with patient 61 mother understands and has no further questions. Patient is being discharged under pandemic conditions under declared global, national and state disaster activation, with limited medical resources. Patient and community understands this. Results discussed in layman's terms to the patient satisfaction. All questions answered in layman's terms. Patient understands importance of follow-up care as directed. Patient has been instructed to return to the ED immediately if new symptoms, problems, or questions occur. We mutually agree with the plan of disposition. The patient understand that they may call or return with any questions or concerns at any time. Lab Data Attestation: I reviewed the patient's lab results. Labs: Laboratory Results - last 24 hr 06/19/21 06/19/21 13:50 13:50 PT 12.5 INR 1.0 APTT 20.6 L Sodium 135 L Potassium 3.5 Chloride 105 Carbon Dioxide 22.0 Anion Gap 8 BUN 24 H Creatinine 1.19 Estim Creat Clear Calc 43.20 Est GFR (MDRD) Af Amer 75 Est GFR (MDRD) Non-Af 62 BUN/Creatinine Ratio 20.2 H Glucose 99 Calcium 8.7 Total Bilirubin 0.60 AST 23 ALT 22 Alkaline Phosphatase 71 Total Protein 7.1 Albumin 3.8 Globulin 3.3 Albumin/Globulin Ratio 1.2 Radiography Diagnostic Testing: Clinical Impression(s) from Imaging Studies Venous Doppler Study 06/19/21 12:13 Interpretation Summary Acute deep venous thrombosis left profundofemoral vein and common femoral vein. Likely chronic deep venous versus left femoral and popliteal vein but additional component of acute disease difficult to decipher. 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, Superficial thrombophlebitis of left leg Instructions: DVT Dc, ED Thrombophlebitis, Superficial Prescriptions: New Rich DVT-PE Treat 30D Start 5 mg (74 tabs) tablets,dose pack 5 mg PO BID Qty: 74 RF: 0 warfarin 5 mg tablet 5 mg PO DAILY Qty: 30 RF: 0 No Action aspirin 81 mg tablet,delayed release (DR/EC) 81 mg PO DAILY RF: 0 Hydrochlorothiazide 12.5 MG capsule 12.5 mg PO DAILY RF: 0 (DME) Handicap Placard See Rx Instructions .ROUTE .MEDSUPPLY Qty: 1 RF: 0 levetiracetam 500 mg tablet 250 mg PO BID Qty: 60 RF: 2 losartan 25 mg tablet 25 mg PO DAILY Qty: 90 RF: 0 metoprolol tartrate 25 mg tablet 12.5 mg PO DAILY Qty: 90 RF: 1 hydrochlorothiazide 25 mg tablet 25 mg PO QAM Qty: 60 RF: 2 Primary Care Provider: Konstantin Monteiro Referrals: Konstantin Monteiro MD [Primary Care Provider] - 3-5 Days Activity Restrictions/Additional Instructions: You have both deep vein thrombosis of the left leg along with superficial thrombophlebitis of the left leg. Use the Eliquis as prescribed. Start warfarin tomorrow as a bridge daily. Follow-up with your doctor on Thursday for INR checks and continued management of your symptoms. Disposition Disposition: Home, Self Care Discharge Date/Time: 06/19/21 15:26
[2021-06-19] MEDS: APIXABAN 5 MG TABLET 10 MG PO (15:17)
[2021-06-19 15:25] VITALS: BP 185/81; PULSE 60; RESP 18
== END 2021-06-19 15:26 | disposition home or self-care (01) ==
PROVIDERS: Emergency Provider Emergency Medicine; PCP Internal Medicine; Visit Provider Emergency Medicine
DX: I82.402 Acute embolism and thrombosis of unspecified deep veins of left lower extremity (principal); I80.02 Phlebitis and thrombophlebitis of superficial vessels of left lower extremity
CPT/HCPCS: 80053; 85610; 85730; 93971; 99284; A4216

== ENCOUNTER → 2023-05-19 | Outpatient (CLI) | payer MEDICARE, SELFPAY ==
--- NOTE | 2023-05-19 12:13 | VDLE_ITS ---
Reason For Study: LLE Swelling RIGHT LEFT CFV is compressible, spontaneous, phasic, GSV is normal. competent and demonstrates normal CFV and SFJ are PARTIALLY COMPRESSIBLE with augmentation. bright intraluminal echoes consistent with Procedure CHRONIC DVT. Normal phasic flow and This is a venous duplex using B-mode, color augmentation noted. flow and spectral Doppler. Deep Fem V is PARTIALLY COMPRESSIBLE with Exam performed in department. bright intraluminal echoes consistent with The exam was diagnostic. CHRONIC DVT. A preliminary report was called and/or faxed FV is PARTIALLY COMPRESSIBLE with bright to Cortney Villafuerte office. intraluminal echoes consistent with CHRONIC DVT. Normal phasic flow and augmentation noted. PopV is PARTIALLY COMPRESSIBLE with bright intraluminal echoes consistent with CHRONIC DVT. Vessel demonstrates reflux for greater than 1 second. T/P Trunk is PARTIALLY COMPRESSIBLE with bright intraluminal echoes consistent with CHRONIC DVT. Normal phasic flow visualized. Gastroc V is PARTIALLY COMPRESSIBLE with bright intraluminal echoes consistent with CHRONIC DVT. PTV is compressible. LT PerV is compressible. VL/Venous Duplex US, Unilateral Interpretation Summary Chronic deep vein thrombosis is noted in the left common femoral vein, saphenof emoral junction, femoral vein, profunda femoral vein, popliteal vein, tibioperoneal trunk vein, gastrocnemius vein Ordering Physician: Cortney Villafuerte Referring Physician: Konstantin Monteiro Performed By: Jer Mckoy RVT
--- OUTSIDE RECORDS SUMMARY | 2023-05-19 12:31 | XMS RPT_ITS | CCD ---
Author Name Unknown Address [address] [place] [address] Organization [facility] Care Team Providers Care 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 Name Role Phone Omi Andres Unavailable Unavailable Konstantin Monteiro MD Unavailable [phone] SANTIAGO GRANT Referring Unava ilable Omi Andres Unavailable Unavailable Konstantin Monteiro MD Primary Care Provider [phone] Shimon Cota MD Unavailable Konstantin Monteiro MD Primary Care Provider [phone] Shimon Cota MD Unavailable Konstantin Monteiro MD Primary Care Provider [phone] Shimon Cota MD Unavailable SHIMON COTA Referring Unavailable SHIMON COTA Attending Unavailable OLEGHE, EFEWONGBE B Primary Care Unavailable SHIMON COTA Referring Unavailable OLEGHE, EFEWONGBE B Primary Care Unavailable OLEGHE, EFEWONGBE B Primary Care Unavailable SHIMON COTA Referring Unavailable ANDREEA ROBERTSON Referring Unavailable ANDREEA ROBERTSON Attending Unavailable OLEGHE, EFEWONGBE B Primary Care Unavailable Medications Current Medications Medication Drug Class(es) Dates Sig (Normalized) Sig (Original) perflutren lipid microspheres 1.3 mL in NaCl (PF) 0.9% 10 mL injection (DEFINITY) (5 sources) Start: 04-15-2022 End: 07-15-2023 perflutren lipid microspheres 1.3 mL in NaCl (PF) 0.9% 10 mL injection (DEFINITY) Completed/Discontinued Medications Medication Drug Class(es) Dates Sig (Normalized) Sig (Original) apixaban 2.5 mg oral tablet (7 sources) Factor Xa Inhibitor Start: 09-16-2021 take 1 tablet by mouth twice daily apixaban (ELIQUIS) 2.5 mg tab tab(s) Indications: Recurrent deep vein thrombosis (DVT) (HCC) , Post-thrombotic syndrome Take 1 tablet by mouth twice daily. 60 tablet 11 09/16/2021 Active Problems Active Problems Problem Classification Problem Date Documented Da te Episodic/Chronic Allergic reactions (10 sources) Atopic dermatitis; Translations: [Allergic contact dermatitis, unspecified cause] Onset: 7 01-06-2017 Chronic Cardiac dysrhythmias (5 sources) Atrial fibrillation; Translations: [Unspecified atrial fibrillation] Onset: 1 Chronic Coagulation and hemorrhagic disorders (10 sources) Thrombocytopenic disorder; Translations: [Thrombocytopenia, unspecified] Onset: 7 01-06-2017 Chronic Coronary atherosclerosis and other heart disease (20 sources) Coronary arteriosclerosis; Translations: [Coronary atherosclerosis] Onset: 1 11-13-2016 Chronic Disorders of lipid metabolism (8 sources) Hyperlipidemia; Translations: [Hyperlipidemia, unspecified] Onset: 1 Chronic Epilepsy; convulsions (7 sources) Other generalized epilepsy and epileptic syndromes, not intractable, without status epilepticus; Translations: [Epilepsy] Onset: 9 07-13-2018 Chronic Essential hypertension (20 sources) Hypertensive disorder; Translations: [Essential hypertension] Onset: 1 11-13-2016 Chronic Heart valve disorders (20 sources) Aortic valve disorder; Translations: [Aortic valve stenosis] Onset: 0 11-13-2016 Chronic Hyperplasia of prostate (14 sources) Benign prostatic hyperplasia; Translations: [Benign prostatic hyperplasia without lower urinary tract symptoms] Onset: 7 11-13-2016 Chronic Other aftercare (2 sources) Patient encounter status; Translations: [Encounter for therapeutic drug level monitoring] Episodic Other diseases of veins and lymphatics (1 source) Postthrombotic syndrome; Translations: [Postthrombotic syndrome without complications of unspecified extremity] Chronic Other lower respiratory disease (1 source) Dyspnea; Translations: [Shortness of breath] Episodic Other lower respiratory disease (1 source) Shortness of breath; Translations: [SOB (shortness of breath)] Onset: 3 Episodic Phlebitis; thrombophlebitis and thromboembolism (20 sources) Acute embolism and thrombosis of unspecified popliteal vein; Translations: [Deep venous thrombosis] Onset: 7 01-06-2017 Episodic Unclassified (1 source) No current problems or disability 11-13-2016 Past or Other Problems Problem Classification Problem Date Documented Da te Episodic/Chronic Fluid and electrolyte disorders (10 sources) Hypokalemia; Translations: [Hypokalemia] Onset: 01-06-2017 01-06-2017 Episodic Pulmonary heart disease (5 sources) Pulmonary embolism; Translations: [Other pulmonary embolism without acute cor pulmonale] Onset: 07-12-2010 Episodic Unclassified (10 sources) Encounter for screening for diabetes mellitus; Translations: [Encounter for screening for diabetes mellitus] Onset: 01-06-2017 01-06-2017 Episodic Results Test Name Value Interpretation Reference Range Facil ity Vital Signs Date Time Vital Sign Value Performing Clinician Facility 08-28-2022 10:44-0400 Body height 165.1 cm Shimon Cota MD Work Phone: [facility] 08-28-2022 10:44-0400 Body weight 78.02 kg Shimon Cota MD Work Phone: [facility] 08-28-2022 10:44-0400 Diastolic blood pressure 65 mm[Hg] Shimon Cota MD Work Phone: [facility] 08-28-2022 10:44-0400 Heart rate 56 /min Shimon Cota MD Work Phone: [facility] 08-28-2022 10:44-0400 SaO2% (BldA) [Mass fraction] 98 % Shimon Cota MD Work Phone: [facility] 08-28-2022 10:44-0400 Systolic blood pressure 169 mm[Hg] Shimon Cota MD Work Phone: [facility] 09-16-2021 10:02-0400 Body height 174 cm Andreea Robertson MD Work Phone: [facility] 09-16-2021 10:020400 Body weight 78.83 kg Andreea Robertson MD Work Phone: [facility] 09-16-2021 10:02-0400 Diastolic blood pressure 74 mm[Hg] Andreea Robertson MD Work Phone: [facility] 09-16-2021 10:02-0400 Heart rate 58 /min Andreea Robertson MD Work Phone: [facility] 09-16-2021 10:02-0400 SaO2% (BldA) [Mass fraction] 96 % Andreea Robertson MD Work Phone: [facility] 09-16-2021 10:02-0400 Systolic blood pressure 163 mm[Hg] Andreea Robertson MD Work Phone: [facility] 08-12-2021 13:03-0400 Diastolic blood pressure 75 mm[Hg] Andreea Robertson MD Work Phone: [facility] 08-12-2021 13:03-0400 Systolic blood pressure 152 mm[Hg] Andreea Robertson MD Work Phone: [facility] 08-12-2021 13:00-0400 Body height 174 cm Andreea Robertson MD Work Phone: [facility] 08-12-2021 13:00-0400 Body weight 79.88 kg Andreea Robertson MD Work Phone: [facility] 08-12-2021 13:00-0400 Heart rate 72 /min Andreea Robertson MD Work Phone: [facility] 08-12-2021 13:00-0400 SaO2% (BldA) [Mass fraction] 97 % Andreea Robertson MD Work Phone: [facility] 02-06-2017 07:45-0400 BMI (Body Mass Index) 27.57 kg/m2 [facility] Work Phone: 02-06-2017 07:45-0400 Body Temperature 97.9 [degF] Omi Antunez [employer]IP[employer] ENGINE MECH[employer]IC[employer] [facility] Work Phone: 02-06-2017 07:45-0400 BP Diastolic 74 mm[Hg] Omi Antunez [employer]AV[employer] EQUIPMENT ENGINE MECHANIC-[employer] [facility] Work Phone: 02-06-2017 07:45-0400 BP Systolic 146 mm[Hg] Omi Antunez HEAV[employer] EQUIPMENT ENGINE MECHANIC-[employer] [facility] Work Phone: 02-06-2017 07:45-0400 Height 173.99 cm Omi Connorder [employer]AV[employer] EQUIPMENT ENGINE MECHANIC-[employer] [facility] Work Phone: 02-06-2017 07:45-0400 Pulse (Heart Rate) 56 /min Omi Antunez [employer] EQUIPMENT ENGINE MECHANIC[employer] [facility] Work Phone: 02-06-2017 07:45-0400 Respiratory Rate 16 /min Omi Antunez HEAV[employer] EQUIPMENT ENGINE MECHANIC[employer] [facility] Work Phone: 02-06-2017 07:45-0400 Weight 83.46 kg Omi Antunez [employer] EQUIPMENT ENGINE MECHANIC[employer] [facility] Work Phone: 02-02-2017 03:56-0400 Body surface area Derived from formula 53.77 mL/min Omi Anutnez [employer] EQUIPMENT ENGINE MECHANIC-[employer] [facility] Work Phone: 01-06-2017 09:04-0400 BMI (Body Mass Index) 27.14 kg/m2 Omi Connorder [employer]AV[employer] EQUIPMENT ENGINE MECHANIC[employer] [facility] Work Phone: 01-06-2017 09:04-0400 Body Temperature 98.6 [degF] Omi Connorder HEAV[employer] EQUIPMENT ENGINE MECHANIC[employer] [facility] Work Phone: 01-06-2017 09:04-0400 BP Diastolic 81 mm[Hg] Omi Antunez HEAV[employer] EQUIPMENT ENGINE MECHANIC-[employer] [facility] Work Phone: 01-06-2017 09:04-0400 BP Systolic 146 mm[Hg] Omi Connorder HEAV[employer] EQUIPMENT ENGINE MECHANIC-[employer] [facility] Work Phone: 01-06-2017 09:04-0400 Height 173.99 cm Omi Antunez HEAV[employer] EQUIPMENT ENGINE MECHANIC-[employer] [facility] Work Phone: 01-06-2017 09:04-0400 Pulse (Heart Rate) 71 /min Omi Antunez HEAV[employer] EQUIPMENT ENGINE MECHANIC-[employer] [facility] Work Phone: 01-06-2017 09:04-0400 Respiratory Rate 18 /min Omi Antunez HEAV[employer] EQUIPMENT ENGINE MECHANIC-[employer] [facility] Work Phone: 01-06-2017 09:04-0400 Weight 82.16 kg Omi Antunez HEAV[employer] EQUIPMENT ENGINE MECHANIC[employer] [facility] Work Phone: 12-31-2016 21:06-0400 Body surface area Derived from formula 50.44 mL/min Omi Antunez HEAV[employer] EQUIPMENT ENGINE MECHANIC-C [facility] Work Phone: 11-13-2016 08:14-0400 BMI (Body Mass Index) 26.84 kg/m2 Konstantin Monteiro MD [facility] 11-13-2016 08:14-0400 BP Diastolic 90 mm[Hg] Konstantin Monteiro MD [facility] 11-13-2016 08:14-0400 BP Systolic 160 mm[Hg] Konstantin Monteiro MD [facility] 11-13-2016 08:14-0400 Height 173.99 cm Konstantin Monteiro MD [facility] 11-13-2016 08:14-0400 Pulse (Heart Rate) 50 /min Konstantin Monteiro MD [facility] 11-13-2016 08:14-0400 Weight 81.25 kg Konstantin Monteiro MD [facility] Encounters Encounter Date Encounter Type Care Provider Facility Start: 08-28-2022 End: 08-28-2022 Patient encounter procedure Shimon Cota MD Work Phone: Cardiology Procedures Date Procedure Procedure Detail Performing Clinician Start: 01-27-2017 End: 02-03-2017 *BMP Omi Marie Antunez HEAV[employer] EQUIPMENT ENGINE MECHANIC-C Start: 01-27-2017 End: 02-03-2017 *CBC with Differential Omi Frank Antunez HEAV[employer] EQUIPMENT ENGINE MECHANIC- C Start: 01-27-2017 End: 01-28-2017 *BMP Omi Frank Antunez HEAV[employer] EQUIPMENT ENGINE MECHANIC-C Start: 01-27-2017 End: 01-28-2017 *CBC with Differential Omi Antunez HEAV[employer] EQUIPMENT ENGINE MECHANIC- C Start: 01-06-2017 End: 01-28-2017 Follow Up Appt 1 month Omi Antunez HEAV[employer] EQUIPMENT ENGINE MECHANIC- C Start: 01-06-2017 End: 01-06-2017 Hemoglobin A1c/Hemoglobin.total in Blood Omi Antunez HE[employer] EQUIPMENT ENGINE MECHANIC-C Start: 01-06-2017 End: 01-28-2017 Follow Up Appt 1 month Omi Antunez HE[employer] EQUIPMENT ENGINE MECHANIC- C Start: 01-06-2017 End: 01-06-2017 HbA1c Omi Antunez [employer] EQUIPMENT ENGINE MECHANIC-C Start: 12-31-2016 End: 12-31-2016 Urinalysis Omi Antunez HE[employer] EQUIPMENT ENGINE MECHANIC-C Start: 12-11-2016 End: 01-07-2017 INR in Platelet poor plasma by Coagulation assay Konstantin Monteiro MD Work Phone: Start: 12-11-2016 End: 01-07-2017 Coagulation factor induced.INR assay in platelet poor plasma Konstantin Monteiro MD Work Phone: Start: 11-13-2016 End: 11-13-2016 *CBC with Differential Konstantin gomes MD Work Phone: Start: 11-13-2016 End: 11-14-2016 *CMP Complete Metabolic Panel Konstantin Monteiro MD Work Phone: Start: 11-13-2016 End: 11-14-2016 Follow Up Appt 3 months Konstantin king MD Work Phone: Start: 11-13-2016 End: 11-14-2016 INR in Platelet poor plasma by Coagulation assay Konstantin Monteiro MD Work Phone: Start: 11-13-2016 End: 11-14-2016 Lipid 1996 panel - Serum or Plasma Konstantin Monteiro MD Work Phone: Start: 11-13-2016 End: 11-14-2016 Prostate specific Ag [Mass/volume] in Serum or Plasma Konstantin Monteiro MD Work Phone: Start: 11-13-2016 End: 11-13-2016 *CBC with Differential Konstantin gomes MD Work Phone: Start: 11-13-2016 End: 11-14-2016 *CMP Complete Metabolic Panel Konstantin Monteiro MD Work Phone: Start: 11-13-2016 End: 11-14-2016 Coagulation factor induced.INR assay in platelet poor plasma Konstantin Monteiro MD Work Phone: Start: 11-13-2016 End: 11-14-2016 Follow Up Appt 3 months Konstantin king MD Work Phone: Start: 11-13-2016 End: 11-14-2016 Lipid panel [AGGREGATE] Konstantin king MD Work Phone: Start: 11-13-2016 End: 11-14-2016 PSA Konstantin Luna Work Phone: Plan of Treatment Date Care Activity Detail Author Start: 07-15-2024 DIABETES SCREEN DIABETES SCREEN [facility] Start: 01-02-2023 Influenza vaccination INFLUENZA (Season Ended) [facility] Start: 07-15-2022 Hepatitis B surface antibody level LDL CHOLESTEROL [facility] Start: 05-04-2022 ADVANCE DIRECTIVE DISCUSSION ADVANCE DIRECTIVE DISCUSSION [facility] Start: 05-04-2022 DEPRESSION ASSESSMENT DEPRESSION ASSESSMENT [facility] Start: 01-02-2022 Influenza vaccination [facility] Start: 05-04-2021 ADVANCE DIRECTIVE DISCUSSION ADVANCE DIRECTIVE DISCUSSION [facility] Start: 05-04-2021 DEPRESSION ASSESSMENT DEPRESSION ASSESSMENT [facility] Start: 02-12-2017 End: 02-12-2017 Appointment Appointment [facility] Start: 02-06-2017 End: 02-06-2017 Follow Up Appt 6 months Follow Up Appt 6 months [facility] Work Phone: Start: 02-06-2017 End: 02-06-2017 Appointment Appointment [facility] Work Phone: Start: 02-03-2017 End: 02-03-2017 Appointment Appointment [facility] Work Phone: Start: 01-28-2017 End: 01-28-2017 INR Coag RelTime (PPP) *PT/INR - Standing Order [facility] Work Phone: Start: 01-28-2017 End: 01-28-2017 INR Coag RelTime (PPP) *PT/INR - Standing Order [facility] Work Phone: Start: 01-27-2017 End: 01-28-2017 *BMP *BMP [facility] Work Phone: Start: 01-27-2017 End: 01-28-2017 *CBC with Differential *CBC with Differential [facility] Work Phone: Start: 01-27-2017 End: 01-28-2017 *BMP *BMP [facility] Work Phone: Start: 01-27-2017 End: 01-28-2017 *CBC with Differential *CBC with Differential [facility] Work Phone: Start: 01-06-2017 End: 01-28-2017 Follow Up Appt 1 month Follow Up Appt 1 month [facility] Work Phone: Start: 01-06-2017 End: 01-06-2017 Hemoglobin A1c/Hemoglobin.total mass fraction (Bld) *HgA1C [facility] Work Phone: Start: 01-06-2017 End: 01-06-2017 Appointment Appointment [facility] Work Phone: Start: 01-06-2017 End: 01-28-2017 Follow Up Appt 1 month Follow Up Appt 1 month [facility] Work Phone: Start: 01-06-2017 End: 01-06-2017 HbA1c *HgA1C [facility] Work Phone: Start: 12-11-2016 End: 01-07-2017 INR Coag RelTime (PPP) *PT/INR - Standing Order [facility] Work Phone: Start: 12-11-2016 End: 01-07-2017 Coagulation factor induced.INR assay in platelet poor plasma *PT/INR - Standing Order [facility] Start: 11-13-2016 End: 11-13-2016 *CBC with Differential *CBC with Differential [facility] Work Phone: Start: 11-13-2016 End: 11-14-2016 *CMP Complete Metabolic Panel *CMP Complete Metabolic Panel [facility] Work Phone: Start: 11-13-2016 End: 11-14-2016 Follow Up Appt 3 months Follow Up Appt 3 months [facility] Work Phone: Start: 11-13-2016 End: 11-14-2016 INR Coag RelTime (PPP) *PT/INR [facility] Work Phone: Start: 11-13-2016 End: 11-14-2016 Lipid panel [AGGREGATE] *Lipid Profile [facility] Work Phone: Start: 11-13-2016 End: 11-14-2016 PSA *PSA (Prostate Specific Antigen) [facility] Work Phone: Start: 11-13-2016 End: 11-13-2016 Appointment Appointment [facility] Start: 11-13-2016 End: 11-13-2016 *CBC with Differential *CBC with Differential [facility] Start: 11-13-2016 End: 11-14-2016 *CMP Complete Metabolic Panel *CMP Complete Metabolic Panel [facility] Start: 11-13-2016 End: 11-14-2016 Coagulation factor induced.INR assay in platelet poor plasma *PT/INR [facility] Start: 11-13-2016 End: 11-14-2016 Follow Up Appt 3 months Follow Up Appt 3 months [facility] Start: 11-13-2016 End: 11-14-2016 Lipid panel [AGGREGATE] *Lipid Profile [facility] Start: 11-13-2016 End: 11-14-2016 PSA *PSA (Prostate Specific Antigen) [facility] Start: 2001 PNEUMOCOCCAL: 65+ (1 - PCV) PNEUMOCOCCAL: 65+ (1 - PCV) [facility] Start: 2001 PNEUMOVAX AGE 65 AND OVER WITH 5YR LOOKBACK (#1) PNEUMOVAX AGE 65 AND OVER WITH 5YR LOOKBACK (#1) [facility] Start: 1986 SHINGRIX VACCINE (1 of 2) SHINGRIX VACCINE (1 of 2) [facility] Start: 11-11-1955 Urine microalbumin profile DTAP,TDAP,TD (1 - Tdap) [facility] Start: 1941 COVID-19 VACCINE (#1) COVID-19 VACCINE (#1) [facility] Start: 1941 COVID-19 VACCINE (1) COVID-19 VACCINE (1) [facility] Start: 05-13-1937 COVID-19 VACCINE (#1) COVID-19 VACCINE (#1) [facility] End: 06-17-2023 ECG COMPLETE ECG COMPLETE ECG Routine S/P AVR 1 Occurrences starting 06/17/2022 until 06/17/2023 [facility] Work Phone: Payers Date Payer Category Payer Medicare MEDICARE MEDICAR E A AND B [id number] 2001-Present [phone] [place] [address] Medicare [id number] 2001 Medicare MEDICARE MEDICAR E A AND B [id number] 2001-Present [phone] [place] [address] Medicare [id number] 2001 Medicare [id number] Social History Date Type Detail Facility Tobacco smoking stat [facility] Never smoked tobacco [facility] Start: 08-12-2021 End: 08-28-2022 Alcohol intake Current drinker of alcohol (finding) [facility] Start: 06-19-2010 History SDOH Alcohol Comment occasionally- 1 glass wine 1-2x weekly [facility] Start: 1935 Sex Assigned At Not on file [facility] Start: 08-02-2021 End: 09-16-2021 Exposure to SARS-CoV-2 (event) Not sure [facility] Medical Equipment Procedure Code Equipment Code Equipment Origin al Text Equipment Identifier Dates Valve Aort 23mm C-E [facility] - [id number] Start: 07-02-2010 Clinical Notes 07-12-2010 to 08-28-2022 Shimon Cota MD - 08/28/2022 11:35 AM EDTBgilberto Jimenez - 04/15/2022 8:43 AM ESTTelephone Encounter - Faby Cuenca - 01/23/2022 9:38 AM COLETAndreea Robertson MD - 09/16/2021 11:18 AM EDT Note Date & Type Note Facility 08-28-2022 Note HNO ID: [id number] Author: Shimon Cota MD Service: ? Author Type: Physician Type: Progress Notes Filed: 08/30/2022 11:33 AM Note Text: [facility] Department of Cardiovascular Medicine SECTION OF CARDIOVASCULAR IMAGING OUTPATIENT VISIT DATE August 28, 2022 OUTPATIENT VISIT TYPE ESTABLISHED PRIMARY CARE PHYSICIAN: Konstantin Monteiro ([facility]) [address] [place] [id number] CHIEF COMPLAINT: Follow up HISTORY OF PRESENT ILLNESS: Mr. Macias is a 86 year old male who presents today for follow-up visit . Since his last visit, he states that he has been doing well. PAST CARDIAC HISTORY: He has been seen in the past for AVR and recurrent DVT. Shemar Cota MD PAST MEDICAL HISTORY Diagnosis Date Aortic stenosis 02/21/2010 Aortic stenosis 02/21/2010 Atrial fibrillation (HCC) 07/12/2010 post op 07/2011 BPH (benign prostatic hyperplasia) CAD (coronary artery disease), iliamna coronary artery 07/04/2010 Hyperlipidemia 07/04/2010 Hypertension 08/08/2010 PE (pulmonary embolism) post op 07/2011 SBE (subacute bacterial endocarditis) prophylaxis candidate PAST SURGICAL HISTORY Procedure Laterality Date PAST SURGICAL HISTORY OF 07/02/2010 AVR #23 CE TRURL ELECTROSURG RESCJ PROSTATE BLEED COMPLETE 2005 TURP SOCIAL HISTORY Social History Tobacco Use Smoking status: Never Smokeless tobacco: Never Substance Use Topics Alcohol use: Yes Comment: occasionally- 1 glass wine 1-2x weekly Drug use: No FAMILY HISTORY Problem Relation Age of Onset Stroke Mother in her 80's Coronary Artery Disease Mother Heart Father at age 80 - [place] Coronary Artery Disease Father None Brother Living - age 76 Heart Brother Living - age 83 - h/o MV repair and CABG Diabetes Brother Living - age 62 Cancer Sister at age 70 - oral cancer other (Unknown) Sister at age 72 ALLERGIES: ALLERGIES No Known Allergies MEDICATIONS: apixaban (ELIQUIS) 2.5 mg tab tab(s)Take 1 tablet by mouth twice daily.Disp: 60 tabletRfl: 11 levETIRAcetam (KEPPRA) 500 mg tabletTake 1 tablet by mouth twice daily.Disp: 180 tabletRfl: 3 (Patient taking differently: Take 250 mg by mouth daily at bedtime.) hydroCHLOROthiazide (HYDRODIURIL, ESIDRIX) 25 mg tabletTake 1 tablet by mouth once daily.Disp: 90 tabletRfl: 3 losartan (COZAAR) 25 mg tabletTake 2 tablets by mouth once daily. Pt taking 1 and half tablets every day.Disp: 120 tabletRfl: 0 REVIEW OF SYSTEMS: See HPI. PHYSICAL EXAMINATION: BP 169/65 (BP Site: Right Arm, BP Position: Sitting) Pulse (!) 56 Ht 165.1 cm (5' 5 ) Wt 78 kg (172 lb) SpO2 98% BMI 28.62 kg/m? General: Well appearing, in no acute distress, speaking in complete sentences. Lungs: Clear to auscultation bilaterally, no wheezing or rhonchi. Heart: Regular rhythm, PMI not displaced, S1, S2 normal, no S3, no S4, no heaves, 2/6 systolic ejection murmur. Abdomen: Soft, nontender, bowel sounds normal, no palpable organomegaly, no bruits. Extremities: No peripheral edema . Grade 2/4 distal pulses bilaterally. CARDIOVASCULAR MEDICINE TESTING: I have personally reviewed the Echocardiogram. Last ECHO Result Conclusion ECHO Collected: 08/28/2022 8:26 AM (Final result) Impression: CONCLUSIONS: - Exam indication: F/U AVR 2010 - The left ventricle is normal in size. Left ventricular systolic function is normal. EF = 54 ? 5% (2D biplane) - The right ventricle is normal in size. Right ventricular systolic function is normal. 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 There is trace aortic valve regurgitation. The peak gradient is 41 mmHg, the mean gradient is 21 mmHg and the dimensionless valve index is 0.31. Prior AV gradients: 37/20 mmHg, DI: 0.32. - Exam was compared with the prior CC echocardiographic exam performed on 07/15/2021. On direct comparison, transaortic gradients are minimally higher today. Otherwise, no major changes. * * * Final * * * IMPRESSION: Mr. Macias is a 86 year old male s/p AVR 2010, HTN, recurrent DVT Elevated BP today. PLAN AND RECOMMENDATIONS: Check BP at home. If blood pressure remains elevated increase losartan to 50 mg once daily blood pressure goals are 130/80 mmHg or lower. He should be on a statin. CONTACT INFORMATION: Shemar Cota MD, [facility] 08-28-2022 History of Present illness Narrative Images from the original note were not included. [facility] [facility] Department of Cardiovascular Medicine SECTION OF CARDIOVASCULAR IMAGING OUTPATIENT VISIT DATE August 28, 2022 OUTPATIENT VISIT TYPE ESTABLISHED PRIMARY CARE PHYSICIAN: Konstantin Monteiro ([facility]) [address] [place] [address] CHIEF COMPLAINT: Follow up HISTORY OF PRESENT ILLNESS: Mr. Macias is a 86 year old male who presents today for follow-up visit . Since his last visit, he states that he has been doing well. PAST CARDIAC HISTORY: He has been seen in the past for AVR and recurrent DVT. Shemar Cota MD PAST MEDICAL HISTORY Diagnosis Date Aortic stenosis 02/21/2010 Aortic stenosis 02/21/2010 Atrial fibrillation (HCC) 07/12/2010 post op 07/2011 BPH (benign prostatic hyperplasia) CAD (coronary artery disease), iliamna coronary artery 07/04/2010 Hyperlipidemia 07/04/2010 Hypertension 08/08/2010 PE (pulmonary embolism) post op 07/2011 SBE (subacute bacterial endocarditis) prophylaxis candidate PAST SURGICAL HISTORY Procedure Laterality Date PAST SURGICAL HISTORY OF 07/02/2010 AVR #23 CE TRURL ELECTROSURG RESCJ PROSTATE BLEED COMPLETE 2006 TURP SOCIAL HISTORY Social History Tobacco Use Smoking status: Never Smokeless tobacco: Never Substance Use Topics Alcohol use: Yes Comment: occasionally- 1 glass wine 1-2x weekly Drug use: No FAMILY HISTORY Problem Relation Age of Onset Stroke Mother in her 80's Coronary Artery Disease Mother Heart Father at age 80 - [place] Coronary Artery Disease Father None Brother Living - age 76 Heart Brother Living - age 83 - h/o MV repair and CABG Diabetes Brother Living - age 62 Cancer Sister at age 70 - oral cancer other (Unknown) Sister at age 72 ALLERGIES: ALLERGIES No Known Allergies MEDICATIONS: apixaban (ELIQUIS) 2.5 mg tab tab(s)^Take 1 tablet by mouth twice daily.^Disp: 60 tablet^Rfl: 11 levETIRAcetam (KEPPRA) 500 mg tablet^Take 1 tablet by mouth twice daily.^Disp: 180 tablet^Rfl: 3 (Patient taking differently: Take 250 mg by mouth daily at bedtime.) hydroCHLOROthiazide (HYDRODIURIL, ESIDRIX) 25 mg tablet^Take 1 tablet by mouth once daily.^Disp: 90 tablet^Rfl: 3 losartan (COZAAR) 25 mg tablet^Take 2 tablets by mouth once daily. Pt taking 1 and half tablets every day.^Disp: 120 tablet^Rfl: 0 REVIEW OF SYSTEMS: See HPI. PHYSICAL EXAMINATION: BP 169/65 (BP Site: Right Arm, BP Position: Sitting) Pulse (!) 56 Ht 165.1 cm (5' 5 ) Wt 78 kg (172 lb) SpO2 98% BMI 28.62 kg/m General: Well appearing, in no acute distress, speaking in complete sentences. Lungs: Clear to auscultation bilaterally, no wheezing or rhonchi. Heart: Regular rhythm, PMI not displaced, S1, S2 normal, no S3, no S4, no heaves, 2/6 systolic ejection murmur. Abdomen: Soft, nontender, bowel sounds normal, no palpable organomegaly, no bruits. Extremities: No peripheral edema . Grade 2/4 distal pulses bilaterally. CARDIOVASCULAR MEDICINE TESTING: I have personally reviewed the Echocardiogram. Last ECHO Result Conclusion ECHO Collected: 08/28/2022 8:26 AM (Final result) Impression: CONCLUSIONS: - Exam indication: F/U AVR 2010 - The left ventricle is normal in size. Left ventricular systolic function is normal. EF = 54 5% (2D biplane) - The right ventricle is normal in size. Right ventricular systolic function is normal. 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 There is trace aortic valve regurgitation. The peak gradient is 41 mmHg, the mean gradient is 21 mmHg and the dimensionless valve index is 0.31. Prior AV gradients: 37/20 mmHg, DI: 0.32. - Exam was compared with the prior CC echocardiographic exam performed on 07/15/2021. On direct comparison, transaortic gradients are minimally higher today. Otherwise, no major changes. * * * Final * * * IMPRESSION: Mr. Macias is a 86 year old male s/p AVR 2010, HTN, recurrent DVT Elevated BP today. PLAN AND RECOMMENDATIONS: Check BP at home. If blood pressure remains elevated increase losartan to 50 mg once daily blood pressure goals are 130/80 mmHg or lower. He should be on a statin. CONTACT INFORMATION: Shemar Cota MD, [facility] documented in this encounter [facility] 04-15-2022 Note HNO ID: [id number] Author: Tena Jimenez Service: ? Author Type: ? Type: Progress Notes Filed: 04/15/2022 8:44 AM Note Text: Ho [facility] 04-15-2022 History of Present illness Narrative Ho documented in this encounter [facility] 01-23-2022 Miscellaneous Notes Call from patient requesting refill. Requested Prescriptions Pending Prescriptions Disp Refills hydroCHLOROthiazide (HYDRODIURIL, ESIDRIX) 25 mg tablet 60 tablet 0 Sig: Take 1 tablet by mouth once daily. Patient last seen 07/15/21 Faby Cuenca documented in this encounter [facility] 09-16-2021 Note HNO ID: [id number] Author: Andreea Robertson MD Service: ? Author Type: Physician Type: Progress Notes Filed: 09/22/2021 11:22 PM Note Text: [facility] [place] [facility] Department of Cardiovascular Medicine SECTION OF VASCULAR MEDICINE OUTPATIENT VISIT DATE September 16, 2021 OUTPATIENT VISIT TYPE ESTABLISHED Follow up regarding: DVT Allergies: has No Known Allergies. Medications: Current Outpatient Medications Medication Sig - losartan (COZAAR) 25 mg tablet Take 2 tablets by mouth once daily. Pt taking 1 and half tablets every day. - hydroCHLOROthiazide (HYDRODIURIL, ESIDRIX) 25 mg tablet Take 1 tablet by mouth once daily. - apixaban (ELIQUIS) 5 mg tab(s) Take by mouth twice daily. Pt taking 5mg in AM and 2.5mg in PM - levETIRAcetam (KEPPRA) 500 mg tablet Take 1 tablet by mouth twice daily. (Patient taking differently: Take 250 mg by mouth daily at bedtime. ) No current facility-administered medications for this visit. 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 Anticoagulated with coumadin for 3 months. __Acute left lower extremity DVT in 2013. Anticoagulated on coumadin until 2016, discontinued by cardiology as patient reduced dose frequently himself due to bruising. 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 ? He has been treated with apixaban since presenting with ?- new DVT on 06/19/2021. Do not have those images for review. ? 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 ? In terms of provoking factors, he endorses frequent drives to [facility] and [place], and prolonged periods working with [employer]. ? Currently it is unclear if he had an acute DVT 06/19/2021, so would endorse that he that he complete 3 months of therapeutic anticoagulation. Following that will reassess to determine whether he should continue low dose of apixaban 2.5mg bid for prevention of future VTE events. ? Recommendations: __Will obtain duplex US images from [facility]. Need to review / compare to current images to see if we can get a better sense of this being all chronic post thrombotic changes vs acute DVT. ? __It is possible that he became symptomatic from chronic venous insufficiency / post-thrombotic syndrome even in the absence of true recurrent acute DVT. He has evidence of chronic venous insufficiency (CEAP class 4a) on exam. He does not want to wear compression stockings, but agrees to use during travel. Provided Rx for knee high 15-20mmHg as we suspect he will not be able to tolerate usual 20-30mmHg. ? __Continue apixaban 5 mg bid until September 16, 2021 to complete 3mo of therapeutic anticoagulation. Patient had been concerned that 10mg of anticoagulant seemed like too much so he had been reducing dose himself -- 5mg in AM, and 2.5mg in PM. Discussed why important to take 5mg BID as prescribed. Following initially 3mo of therapy will reassess for continued low dose DOAC (likely) vs stopping anticoagulation. ? __Reviewed warning sx of VTE and bleeding. ? __Patient asked for temporary refills for his CV meds -- provided, reminded to request additional refills through PCP and Cardiology. ? __Follow up in 4-6wks. Subjective: Seen for scheduled follow up. No new interval symptoms or concerns. Did increase apixaban to BID after discussion at last appt. Has been able to get apixaban sent to him from [employer] without cost. Admits that he has not been using compression stockings -- once in awhile uses while driving. Denies any signs of bleeding including epistaxis, hemoptysis, hematemesis, BRBPR, melena, or hematuria. Reviewed venous US imaging with him. Objective: BP 163/74 (BP Site: Left Arm) Pulse (!) 58 Ht 174 cm (5' 8.5 ) Wt 78.8 kg (173 lb 12.8 oz) SpO2 96% BMI 26.04 kg/m? General: Alert and oriented, in no acute distress, pleasant mood. Skin: Healthy, intact, no ulcerations, no rashes. HEENT: Head normocephalic, extraocular muscles intact, sclera anicteric, nasal and oral mucosa moist and pink, neck supple, no JVD, no carotid bruit. Cardiovascular: Heart has a regular rate and rhythm without murmur. Respiratory: Lungs clear auscultation bilaterally. Gastrointestinal: Abdomen soft and nontender. No abdominal bruit or palpable mass. Musculoskeletal: No cyanosis or clubbing. Periphe (more content not included)... [facility] 09-16-2021 History of Present illness Narrative Images from the original note were not included. [facility] Department of Cardiovascular Medicine SECTION OF VASCULAR MEDICINE OUTPATIENT VISIT DATE September 16, 2021 OUTPATIENT VISIT TYPE ESTABLISHED Follow up regarding: DVT Allergies: has No Known Allergies. Medications: Current Outpatient Medications Medication Sig losartan (COZAAR) 25 mg tablet Take 2 tablets by mouth once daily. Pt taking 1 and half tablets every day. hydroCHLOROthiazide (HYDRODIURIL, ESIDRIX) 25 mg tablet Take 1 tablet by mouth once daily. apixaban (ELIQUIS) 5 mg tab(s) Take by mouth twice daily. Pt taking 5mg in AM and 2.5mg in PM levETIRAcetam (KEPPRA) 500 mg tablet Take 1 tablet by mouth twice daily. (Patient taking differently: Take 250 mg by mouth daily at bedtime. ) No current facility-administered medications for this visit. 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 Anticoagulated with coumadin for 3 months. __Acute left lower extremity DVT in 2013. Anticoagulated on coumadin until 2016, discontinued by cardiology as patient reduced dose frequently himself due to bruising. 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 He has been treated with apixaban since presenting with ?- new DVT on 06/19/2021. Do not have those images for review. 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 In terms of provoking factors, he endorses frequent drives to [facility] and [place], and prolonged periods working with [employer]. Currently it is unclear if he had an acute DVT 06/19/2021, so would endorse that he that he complete 3 months of therapeutic anticoagulation. Following that will reassess to determine whether he should continue low dose of apixaban 2.5mg bid for prevention of future VTE events. Recommendations: __Will obtain duplex US images from [facility]. Need to review / compare to current images to see if we can get a better sense of this being all chronic post thrombotic changes vs acute DVT. __It is possible that he became symptomatic from chronic venous insufficiency / post-thrombotic syndrome even in the absence of true recurrent acute DVT. He has evidence of chronic venous insufficiency (CEAP class 4a) on exam. He does not want to wear compression stockings, but agrees to use during travel. Provided Rx for knee high 15-20mmHg as we suspect he will not be able to tolerate usual 20-30mmHg. __Continue apixaban 5 mg bid until September 16, 2021 to complete 3mo of therapeutic anticoagulation. Patient had been concerned that 10mg of anticoagulant seemed like too much so he had been reducing dose himself -- 5mg in AM, and 2.5mg in PM. Discussed why important to take 5mg BID as prescribed. Following initially 3mo of therapy will reassess for continued low dose DOAC (likely) vs stopping anticoagulation. __Reviewed warning sx of VTE and bleeding. __Patient asked for temporary refills for his CV meds -- provided, reminded to request additional refills through PCP and Cardiology. __Follow up in 4-6wks. Subjective: Seen for scheduled follow up. No new interval symptoms or concerns. Did increase apixaban to BID after discussion at last appt. Has been able to get apixaban sent to him from [employer] without cost. Admits that he has not been using compression stockings -- once in awhile uses while driving. Denies any signs of bleeding including epistaxis, hemoptysis, hematemesis, BRBPR, melena, or hematuria. Reviewed venous US imaging with him. Objective: BP 163/74 (BP Site: Left Arm) Pulse (!) 58 Ht 174 cm (5' 8.5 ) Wt 78.8 kg (173 lb 12.8 oz) SpO2 96% BMI 26.04 kg/m General: Alert and oriented, in no acute distress, pleasant mood. Skin: Healthy, intact, no ulcerations, no rashes. HEENT: Head normocephalic, extraocular muscles intact, sclera anicteric, nasal and oral mucosa moist and pink, neck supple, no JVD, no carotid bruit. Cardiovascular: Heart has a regular rate and rhythm without murmur. Respiratory: Lungs clear auscultation bilaterally. Gastrointestinal: Abdomen soft and nontender. No abdominal bruit or palpable mass. Musculoskeletal: No cyanosis or clubbing. Peripheral vascular: Dorsalis pedis and posterior tibial pulses 2+/2 bilaterally. Feet and toes warm pink and well perfused. Lower extremities: Pitting 1-2+ edema in the LLE, 1+ in RLE consistent bilaterally with chronic venous insufficiency with L>>R lower leg hemosiderin staining and scattered telangectasias. Labs None Imaging 08/12/2021 venous US IMPRESSION RIGHT SIDE - DEEP VEINS Spontaneous and respirophasic flow noted in the common femoral vein. LEFT SIDE - DEEP VEINS Clinical correlation is advised; no previous scans for comparison; chronic post-thrombotic change in the common femoral vein. Clinical correlation is advised; no previous scans for comparison; chronic post-thrombotic change in the popliteal vein. Clinical correlation is advised; no previous scans for comparison; chronic post-thrombotic change in the gastrocnemius veins at the knee crease. 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 Anticoagulated with coumadin for 3 months. __Acute left lower extremity DVT in 2013. Anticoagulated on coumadin until 2017, discontinued by cardiology as patient reduced dose frequently himself due to bruising. 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 He has been treated with apixaban since presenting with ?- new DVT on 06/19/2021. In terms of provoking factors, he endorses frequent drives to [facility] and [place], and prolonged periods working with [employer]. Unclear if he had an acute DVT 06/19/2021, so planned to complete 3 months of therapeutic anticoagulation. 08/12/2021 venous US obtained in office shows chronic post-thrombotic changes in the left CFV, popliteal vein and gastroc vein. 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 Obtained prior US images for review -- 06/19/2021 venous US with similar distribution of thrombosis / post-thrombotic changes, some technical differences between exams. Discussed that if he did not have recurrent thrombosis he likely had flare of post-thrombotic syndrome symptoms from prolonged leg dependency. plan: __Discussed that the diagnosis of recurrent DVT 06/19/2021 is somewhat equivocal -- may have had some new DVT formation, or may have been flare of post-thrombotic symptoms given extensive chronic thrombus burden. __He has completed 3 months of therapeutic anticoagulation with apixaban 5mg BID. Discussed risks/benefits of continuing low dose DOAC for extended secondary VTE prophylaxis vs monitoring symptoms off anticoagulation. He shared in decision making and agrees to continue apixaban 2.5mg BID. __He has evidence of chronic venous insufficiency (CEAP class 4a) on exam. He does not want to wear compression stockings, but agrees to use during travel. At prior appt received Rx for knee high 15-20mmHg, suspect he will not be able to tolerate usual 20-30mmHg. __Reviewed warning sx of VTE and bleeding. __Follow up in 1 year and additionally as needed. Andreea Robertson MD CC: Konstantin Monteiro MD documented in this encounter [facility] 08-12-2021 Instructions Leo Hudson MD - 08/12/2021 3:14 PM EDT Great seeing you today - We recommend that you take eliquis 5 mg twice a day to complete 3 months of treatment (until September 16, 2021). - After that you can go down to Eliquis 2.5 mg twice a day. documented in this encounter [facility] 08-12-2021 History of Present illness Narrative Images from the original note were not included. [facility] [facility] Department of Cardiovascular Medicine SECTION OF VASCULAR MEDICINE OUTPATIENT VISIT DATE August 12, 2021 OUTPATIENT VISIT TYPE CONSULTATION Consult regarding: DVT/Thrombophlebitis. Consult requested by: Shimon Cota My final recommendations will be communicated back to the requesting physician by way of the shared medical record or by letter. Primary care physician: Konstantin Monteiro MD History of present illness: 85yo gentleman presents for opinion regarding anticoagulation after recent diagnosis of left leg thrombophlebitis. VTE history remarkable for the following => provoked right posterior basal segmental PE in 2009 following recent surgical aortic valve replacement. Treated with lovenox -> coumadin for 3 months. => Acute left lower extremity DVT in 2013 following left calf pain after 3.[address] from [place] to [place]. Presented to [facility] and was diagnosed with acute DVT. He was bridged to coumadin with lovenox. Continued coumadin until 2016 and was then stopped. He presented to [facility] on 06/19/2021 with pain along the medial aspect of the left leg that had been persistent for several days. He had an ultrasound that showed superficial thrombophlebitis and DVTs to femoral and popliteal veins, all in the left leg with acute and chronic . He was provided with a started pack for eliquis. Currently, he endorses to taking 5 mg in the morning and 7.5 mg in the evening as he feels a cumulative dose of 10 mg is very high. He has not had any hematochezia, melena or epistaxis. His left lower extremity pain is currently resolved. [place]. Allergies: has No Known Allergies. Medications: apixaban (ELIQUIS) 5 mg tab(s) Take by mouth twice daily. Pt taking 5mg in AM and 2.5mg in PM losartan (COZAAR) 25 mg tablet Take 2 tablets by mouth once daily. hydroCHLOROthiazide (HYDRODIURIL, ESIDRIX) 25 mg tablet Take 1 tablet by mouth once daily. levETIRAcetam (KEPPRA) 500 mg tablet Take 1 tablet by mouth twice daily. Past medical history: Aortic stenosis (02/21/2010) Atrial fibrillation (HCC) (07/12/2010) BPH (benign prostatic hyperplasia) CAD (coronary artery disease), iliamna coronary artery (07/04/2010) Hyperlipidemia (07/04/2010), Hypertension (08/08/2010), PE (pulmonary embolism), and SBE (subacute bacterial endocarditis) prophylaxis candidate. Past surgical history: has a past surgical history that includes trurl electrosurg rescj prostate bleed complete (2005) and past surgical history of (07/02/2010). Family history: family history includes Cancer in his sister; Coronary Artery Disease in his father and mother; Diabetes in his brother; Heart in his brother and father; None in his brother; Stroke in his mother; Unknown in his sister. Social history: reports that he has never smoked. He has never used smokeless tobacco. He reports current alcohol use. He reports that he does not use drugs. REVIEW OF SYSTEMS: Review of systems: General Fever or chills - No Night sweats - No Change in weight - No Lumps in groin, underarms - No Neurological Headaches - No Seizures - No Passing out - No Dizziness/light headedness - No Numbness, tingling, pins or needles - No Weakness in arms or legs - No Head, eyes, ears, nose and throat Changes in hearing - No Changes in vision - No Nose bleeds - No Difficulty or pain with swallowing - No Cardiovascular Chest pain or pressure - No Palpitations - No Irregular heartbeat - No Shortness of breath - No Respiratory Cough - No Wheezing - No Shortness of breath at rest - No Shortness of breath with exertion - No Coughing up blood - No Sleep apnea - YES Gastrointestinal Abdominal pain - No Nausea/vomiting - No Diarrhea/Constipation - No Stomach pain after eating - No Blood in stool - No Black stool - No Genitourinary Pain with urination - No Blood in urine - No Gynecology - N/A Abnormal vaginal bleeding - N/A History of loss - N/A Extremity Bulging veins - No Swelling in arms or legs - YES Redness of extremities - No Pain with walking - No Color change of hands/feet/digits - No Musculoskeletal Joint pain - No Joint swelling - No Back pain - No Muscle pain or ache - No Skin Rash - No Lesions - No Slow healing sores - No Tight or thickened skin - No Hematology Low blood counts - No Easy bruising - YES Blood transfusions - No Psychology Depressed mood - No Anxiety or history of panic attacks - No History of recreational drug use - No Cancer screening (up to date?): Colonoscopy: YES- 15 yrs ago Prostate: TURP in 2005 Smoking history: -Current or past smoker? No -If current smoker, are you interested in help with quitting? N/A Physical exam: BP 152/75 (BP Site: Left Arm, BP Position: Sitting, BP Cuff Size: Regular Adult) Pulse 72 Ht 174 cm (5' 8.5 ) Wt 79.9 kg (176 lb 1.6 oz) SpO2 97% BMI 26.39 kg/m General: Alert and oriented, in no acute distress, pleasant mood. Skin: Healthy, intact, no ulcerations, no rashes. HEENT: Head normocephalic, extraocular muscles intact, sclera anicteric, nasal and oral mucosa moist and pink, neck supple, no JVD, no carotid bruit. Cardiovascular: 3/6 systolic murmur best heard in the LUSB. Respiratory: Lungs clear auscultation bilaterally. Gastrointestinal: Abdomen soft and nontender. No abdominal bruit or palpable mass. Musculoskeletal: No cyanosis or clubbing. Peripheral vascular: Dorsalis pedis and posterior tibial pulses 2+/2 bilaterally. Feet and toes warm pink and well perfused. Lower extremities: Pitting 1-2+ edema in the LLE, 1+ in RLE consistent bilaterally with chronic venous insufficiency with L>>R lower leg hemosiderin staining and scattered telangectasias. Imaging 08/12/2021 US Duplex LE RIGHT SIDE - DEEP VEINS Spontaneous and respirophasic flow noted in the common femoral vein. LEFT SIDE - DEEP VEINS Clinical correlation is advised; no previous scans for comparison; chronic post-thrombotic change in the common femoral vein. Clinical correlation is advised; no previous scans for comparison; chronic post-thrombotic change in the popliteal vein. Clinical correlation is advised; no previous scans for comparison; chronic post-thrombotic change in the gastrocnemius veins at the knee crease. Labs Cr 1.21 Estimated Creatinine Clearance: 44.7 mL/min (based on SCr of 1.21 mg/dL). Component Latest Ref Rng & Units 07/15/2021 Glucose 74 - 99 mg/dL 99 BUN 9 - 24 mg/dL 21 Creatinine 0.73 - 1.22 mg/dL 1.21 Sodium 136 - 144 mmol/L 140 Potassium 3.7 - 5.1 mmol/L 4.5 Chloride 97 - 105 mmol/L 102 CO2 22 - 30 mmol/L 27 Anion Gap 9 - 18 mmol/L 11 Calcium 8.5 - 10.2 mg/dL 9.6 eGFR >=60 mL/min/1.73m 59 (L) Impression 85yo gentleman with hx of aortic stenosis s/p AVR in 2009, hypertension who presents for opinion regarding anticoagulation for suspected recurrent DVT. 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 Anticoagulated with coumadin for 3 months. __Acute left lower extremity DVT in 2013. Anticoagulated on coumadin until 2016, discontinued by cardiology as patient reduced dose frequently himself due to bruising. 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 He has been treated with apixaban since presenting with ?- new DVT on 06/19/2021. Do not have those images for review. 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 In terms of provoking factors, he endorses frequent drives to [facility] and [place], and prolonged periods working with [employer]. Currently it is unclear if he had an acute DVT 06/19/2021, so would endorse that he that he complete 3 months of therapeutic anticoagulation. Following that will reassess to determine whether he should continue low dose of apixaban 2.5mg bid for prevention of future VTE events. Recommendations: __Will obtain duplex US images from [facility]. Need to review / compare to current images to see if we can get a better sense of this being all chronic post thrombotic changes vs acute DVT. __It is possible that he became symptomatic from chronic venous insufficiency / post-thrombotic syndrome even in the absence of true recurrent acute DVT. He has evidence of chronic venous insufficiency (CEAP class 4a) on exam. He does not want to wear compression stockings, but agrees to use during travel. Provided Rx for knee high 15-20mmHg as we suspect he will not be able to tolerate usual 20-30mmHg. __Continue apixaban 5 mg bid until September 16, 2021 to complete 3mo of therapeutic anticoagulation. Patient had been concerned that 10mg of anticoagulant seemed like too much so he had been reducing dose himself -- 5mg in AM, and 2.5mg in PM. Discussed why important to take 5mg BID as prescribed. Following initially 3mo of therapy will reassess for continued low dose DOAC (likely) vs stopping anticoagulation. __Reviewed warning sx of VTE and bleeding. __Patient asked for temporary refills for his CV meds -- provided, reminded to request additional refills through PCP and Cardiology. __Follow up in 4-6wks. SIGNATURE: Leo Hudson MD PATIENT NAME: Leeann Macias DATE: August 12, 2021 TIME: 7:49 PM PAGER: [phone] Note: Case to be discussed with Vascular Medicine Staff. Recommendations are not final until addended by Staff. [facility] STAFF PHYSICIAN NOTE OF PERSONAL INVOLVEMENT IN CARE I have reviewed the documentation obtained and documented by the Fellow and have reviewed and updated the problem list as appropriate. I have personally performed a face to face assessment of the patient and have personally participated on the reeves components of the history, exam and medical decision making. I have discussed the case and management of the patient's care. STAFF PHYSICIAN: Andreea Robertson MD DATE OF SERVICE: August 12, 2021 TIME OF SERVICE: 2:13 PM documented in this encounter [facility] documented as of this encounter (statuses as of 08/13/2021) [facility]03-11-2011 History of Past illness Narrative* Problem Noted Date Resolved Date Pericardial effusion 07/12/2010 06/01/2012 Overview: 07/[address] report, patient has a 1.5cm posterior pericardial effusion. VS stable & no other physiological signs of tamponade. Echo today- no increase in pericardial effusion. Monitor now on heparin IV and coumadin. No need to repeat per Dr. Hoff. Recommend repeat after discharge. Thrombocytopenia 07/05/2010 07/12/2010 Overview: Plts lower today than yesterday 81K. HIT panel negative, wires out- Hypotension 07/03/2010 07/04/2010 Overview: levophed gtt for MAP >60-65. 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 Pancho Hardy. He is a Buddhist & refuses blood products. The morning of 07/12/10 he used a mechanical cuff as per his usual routine to check his blood pressure & noticed that his HR was in the 120's & was irregular - he denies symptoms but went to the [facility] ER. EKG showed A-fib with HR ~120's. CT scan was performed which, per report, was remarkable for small bilateral pleural effusions, a small posterior pericardial effusion measuring 1.5cm, & a filling defect in the posterior basal segmental branch of the right lobe pulmonary artery compatible with an acute pulmonary embolism. The patient was treated with lovenox injection, IV cardizem & readmitted 07/12/10 back to [facility] for further care. 07/13 to DCCV 07/12 successful, increased BB, US DVT LE- negative as CT scan OSH showed R sub segmental PE, OK per Dr. Deleon to d/c on lovenox and f/up VM- patient unable to afford lovenox- will treat as inpatient 07/17 room air, NSR, ambulating independently, heparin/coumadin, diuresis, dc planning home 2-3 days when INR >2.0 -Will discharge on coumadin Stress hyperglycemia 07/03/2010 07/07/2010 Overview: Requiring minimal coverage, will dc Atelectasis 07/03/2010 07/12/2010 Overview: PEP / OOB to chair TID for meals, and ambulate in the halls, xray prior to dc Pleural effusion 07/03/2010 06/01/2012 Overview: On RA. No c/o dyspnea. CXR 07/13: small bilateral pleural effusions and mild atelectasis; Discharge on lasix. Encourage C/DB/PEP and OOB/ambulation. discharge planning 06/28/2010 06/01/2012 Overview: Age 74 lives in [place], [place] with spouse. Will follow up with local PCP Dr. Mock and Dr. Cota at [facility]. Dr. Mock will monitor PT/INR at discharge. office called and updated. INR to be drawn Thursday am. Can schedule an appointment with at discharge to be seen in 4 weeks. Pre-op testing 06/28/2010 07/12/2010 Overview: Images from the original note were not included. [facility] PRE[facility] Surgeon: Hernan Perez M.D. Informed Consent Completed: yes STS Score: 1.0% CAD: No Is intended procedure a CABG: No - is a beta bertha ordered? No - reason: no CAD H & P completed: Yes 02/21/2010 updated 06/28/2010 PA/LAT: Completed CT: N/A MRI: N/A LE US: N/A Cath: Yes - reviewed: Yes Echo:Completed EKG: Completed EF %: 60 PI's: N/A Carotid: N/A Mapping: N/A Dental: done PFT's: N/A Basename 06/28/10 0947 WBC 8.09 HB 15.4 HCT 46.4 PLT 209 INR 1.0 CREAT 1.01 UA: Abnormal HCG:N/A ABO/ABO Confirmed: no JW Blood ordered: No SA Swab: Yes - results: neg Last Dose of Anticoagulation: ASA LD_06/28 Op Note: N/A Pacemaker Check: N/A Consults: na DM: No Cardiac Surgical prep: Yes SIGNATURE: Andreea Bridges Rn CHECKED BY: yuly DATE of SERVICE: 06/28/2010 TIME of SERVICE: 3:29 PM documented as of this encounter (statuses as of 09/23/2021) [facility]03-11-2011 History of Past illness Narrative* Problem Noted Date Resolved Date Pericardial effusion 07/12/2010 06/01/2012 Overview: 07/[address] report, patient has a 1.5cm posterior pericardial effusion. VS stable & no other physiological signs of tamponade. Echo today- no increase in pericardial effusion. Monitor now on heparin IV and coumadin. No need to repeat per Dr. Hoff. Recommend repeat after discharge. Thrombocytopenia 07/05/2010 07/12/2010 Overview: Plts lower today than yesterday 81K. HIT panel negative, wires out- Hypotension 07/03/2010 07/04/2010 Overview: levophed gtt for MAP >60-65. 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 Pancho Hrady. He is a Buddhist & refuses blood products. The morning of 07/12/10 he used a mechanical cuff as per his usual routine to check his blood pressure & noticed that his HR was in the 120's & was irregular - he denies symptoms but went to the [facility] ER. EKG showed A-fib with HR ~120's. CT scan was performed which, per report, was remarkable for small bilateral pleural effusions, a small posterior pericardial effusion measuring 1.5cm, & a filling defect in the posterior basal segmental branch of the right lobe pulmonary artery compatible with an acute pulmonary embolism. The patient was treated with lovenox injection, IV cardizem & readmitted 07/12/10 back to [facility] for further care. 07/13 to DCCV 07/12 successful, increased BB, US DVT LE- negative as CT scan OSH showed R sub segmental PE, OK per Dr. Deleon to d/c on lovenox and f/up VM- patient unable to afford lovenox- will treat as inpatient 07/17 room air, NSR, ambulating independently, heparin/coumadin, diuresis, dc planning home 2-3 days when INR >2.0 -Will discharge on coumadin Stress hyperglycemia 07/03/2010 07/07/2010 Overview: Requiring minimal coverage, will dc Atelectasis 07/03/2010 07/12/2010 Overview: PEP / OOB to chair TID for meals, and ambulate in the halls, xray prior to dc Pleural effusion 07/03/2010 06/01/2012 Overview: On RA. No c/o dyspnea. CXR 07/13: small bilateral pleural effusions and mild atelectasis; Discharge on lasix. Encourage C/DB/PEP and OOB/ambulation. discharge planning 06/28/2010 06/01/2012 Overview: Age 74 lives in [place], [place] with spouse. Will follow up with local PCP Dr. Mock and Dr. Cota at [facility]. Dr. Mock will monitor PT/INR at discharge. office called and updated. INR to be drawn Thursday am. Can schedule an appointment with at discharge to be seen in 4 weeks. Pre-op testing 06/28/2010 07/12/2010 Overview: Images from the original note were not included. [facility] PRE[facility] Surgeon: Hernan Perez M.D. Informed Consent Completed: yes STS Score: 1.0% CAD: No Is intended procedure a CABG: No - is a beta bertha ordered? No - reason: no CAD H & P completed: Yes 02/21/2010 updated 06/28/2010 PA/LAT: Completed CT: N/A MRI: N/A LE US: N/A Cath: Yes - reviewed: Yes Echo:Completed EKG: Completed EF %: 60 PI's: N/A Carotid: N/A Mapping: N/A Dental: done PFT's: N/A Basename 06/28/10 0947 WBC 8.09 HB 15.4 HCT 46.4 PLT 209 INR 1.0 CREAT 1.01 UA: Abnormal HCG:N/A ABO/ABO Confirmed: no JW Blood ordered: No SA Swab: Yes - results: neg Last Dose of Anticoagulation: ASA LD_06/28 Op Note: N/A Pacemaker Check: N/A Consults: na DM: No Cardiac Surgical prep: Yes SIGNATURE: Andreea Bridges Rn CHECKED BY: yuly DATE of SERVICE: 06/28/2010 TIME of SERVICE: 3:29 PM documented as of this encounter (statuses as of 01/23/2022) [facility]03-[facility]-2011 History of Past illness Narrative* Problem Noted Date Resolved Date Pericardial effusion 07/12/2010 06/01/2012 Overview: 07/[address] report, patient has a 1.5cm posterior pericardial effusion. VS stable & no other physiological signs of tamponade. Echo today- no increase in pericardial effusion. Monitor now on heparin IV and coumadin. No need to repeat per Dr. Hoff. Recommend repeat after discharge. Thrombocytopenia 07/05/2010 07/12/2010 Overview: Plts lower today than yesterday 81K. HIT panel negative, wires out- Hypotension 07/03/2010 07/04/2010 Overview: levophed gtt for MAP >60-65. 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 Pancho Hardy. He is a Buddhist & refuses blood products. The morning of 07/12/10 he used a mechanical cuff as per his usual routine to check his blood pressure & noticed that his HR was in the 120's & was irregular - he denies symptoms but went to the [facility] ER. EKG showed A-fib with HR ~120's. CT scan was performed which, per report, was remarkable for small bilateral pleural effusions, a small posterior pericardial effusion measuring 1.5cm, & a filling defect in the posterior basal segmental branch of the right lobe pulmonary artery compatible with an acute pulmonary embolism. The patient was treated with lovenox injection, IV cardizem & readmitted 07/12/10 back to [facility] for further care. 07/13 to DCCV 07/12 successful, increased BB, US DVT LE- negative as CT scan OSH showed R sub segmental PE, OK per Dr. Deleon to d/c on lovenox and f/up VM- patient unable to afford lovenox- will treat as inpatient 07/17 room air, NSR, ambulating independently, heparin/coumadin, diuresis, dc planning home 2-3 days when INR >2.0 -Will discharge on coumadin Stress hyperglycemia 07/03/2010 07/07/2010 Overview: Requiring minimal coverage, will dc Atelectasis 07/03/2010 07/12/2010 Overview: PEP / OOB to chair TID for meals, and ambulate in the halls, xray prior to dc Pleural effusion 07/03/2010 06/01/2012 Overview: On RA. No c/o dyspnea. CXR 07/13: small bilateral pleural effusions and mild atelectasis; Discharge on lasix. Encourage C/DB/PEP and OOB/ambulation. discharge planning 06/28/2010 06/01/2012 Overview: Age 74 lives in [place], [place] with spouse. Will follow up with local PCP Dr. Mock and Dr. Cota at [facility]. Dr. Mock will monitor PT/INR at discharge. office called and updated. INR to be drawn Thursday am. Can schedule an appointment with VM at discharge to be seen in 4 weeks. Pre-op testing 06/28/2010 07/12/2010 Overview: Images from the original note were not included. [facility] PRE-[facility] Surgeon: Hernan Perez M.D. Informed Consent Completed: yes STS Score: 1.0% CAD: No Is intended procedure a CABG: No - is a beta bertha ordered? No - reason: no CAD H & P completed: Yes 02/21/2010 updated 06/28/2010 PA/LAT: Completed CT: N/A MRI: N/A LE US: N/A Cath: Yes - reviewed: Yes Echo:Completed EKG: Completed EF %: 60 PI's: N/A Carotid: N/A Mapping: N/A Dental: done PFT's: N/A Basename 06/28/10 0947 WBC 8.09 HB 15.4 HCT 46.4 PLT 209 INR 1.0 CREAT 1.01 UA: Abnormal HCG:N/A ABO/ABO Confirmed: no JW Blood ordered: No SA Swab: Yes - results: neg Last Dose of Anticoagulation: ASA LD_06/28 Op Note: N/A Pacemaker Check: N/A Consults: na DM: No Cardiac Surgical prep: Yes SIGNATURE: Andreea Bridges Rn CHECKED BY: yuly DATE of SERVICE: 06/28/2010 TIME of SERVICE: 3:29 PM documented as of this encounter (statuses as of 04/15/2022) [facility]03-11-2011 History of Past illness Narrative* Problem Noted Date Resolved Date Pericardial effusion 07/12/2010 06/01/2012 Overview: 07/[address] report, patient has a 1.5cm posterior pericardial effusion. VS stable & no other physiological signs of tamponade. Echo today- no increase in pericardial effusion. Monitor now on heparin IV and coumadin. No need to repeat per Dr. Hoff. Recommend repeat after discharge. Thrombocytopenia 07/05/2010 07/12/2010 Overview: Plts lower today than yesterday 81K. HIT panel negative, wires out- Hypotension 07/03/2010 07/04/2010 Overview: levophed gtt for MAP >60-65. 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 Pancho Hardy. He is a Buddhist & refuses blood products. The morning of 07/12/10 he used a mechanical cuff as per his usual routine to check his blood pressure & noticed that his HR was in the 120's & was irregular - he denies symptoms but went to the [facility] ER. EKG showed A-fib with HR ~120's. CT scan was performed which, per report, was remarkable for small bilateral pleural effusions, a small posterior pericardial effusion measuring 1.5cm, & a filling defect in the posterior basal segmental branch of the right lobe pulmonary artery compatible with an acute pulmonary embolism. The patient was treated with lovenox injection, IV cardizem & readmitted 07/12/10 back to [facility] for further care. 07/13 to DCCV 07/12 successful, increased BB, US DVT LE- negative as CT scan OSH showed R sub segmental PE, OK per Dr. Deleon to d/c on lovenox and f/up VM- patient unable to afford lovenox- will treat as inpatient 07/17 room air, NSR, ambulating independently, heparin/coumadin, diuresis, dc planning home 2-3 days when INR >2.0 -Will discharge on coumadin Stress hyperglycemia 07/03/2010 07/07/2010 Overview: Requiring minimal coverage, will dc Atelectasis 07/03/2010 07/12/2010 Overview: PEP / OOB to chair TID for meals, and ambulate in the halls, xray prior to dc Pleural effusion 07/03/2010 06/01/2012 Overview: On RA. No c/o dyspnea. CXR 07/13: small bilateral pleural effusions and mild atelectasis; Discharge on lasix. Encourage C/DB/PEP and OOB/ambulation. discharge planning 06/28/2010 06/01/2012 Overview: Age 74 lives in [place], [place] with spouse. Will follow up with local PCP Dr. Mock and Dr. Cota at [facility]. Dr. Mock will monitor PT/INR at discharge. office called and updated. INR to be drawn Thursday am. Can schedule an appointment with at discharge to be seen in 4 weeks. Pre-op testing 06/28/2010 07/12/2010 Overview: Images from the original note were not included. [facility] PRE-OP CHECKLIST Surgeon: Hernan Perez M.D. Informed Consent Completed: yes STS Score: 1.0% CAD: No Is intended procedure a CABG: No - is a beta bertha ordered? No - reason: no CAD H & P completed: Yes 02/21/2010 updated 06/28/2010 PA/LAT: Completed CT: N/A MRI: N/A LE US: N/A Cath: Yes - reviewed: Yes Echo:Completed EKG: Completed EF %: 60 PI's: N/A Carotid: N/A Mapping: N/A Dental: done PFT's: N/A Basename 06/28/10 0947 WBC 8.09 HB 15.4 HCT 46.4 PLT 209 INR 1.0 CREAT 1.01 UA: Abnormal HCG:N/A ABO/ABO Confirmed: no JW Blood ordered: No SA Swab: Yes - results: neg Last Dose of Anticoagulation: ASA LD_06/28 Op Note: N/A Pacemaker Check: N/A Consults: na DM: No Cardiac Surgical prep: Yes SIGNATURE: Andreea Bridges Rn CHECKED BY: yuly DATE of SERVICE: 06/28/2010 TIME of SERVICE: 3:29 PM documented as of this encounter (statuses as of 06/17/2022) [facility] History of Past illness Narrative* Problem Noted Date Resolved Date Atrial fibrillation 07/12/2010 08/30/2022 Overview: Readmitted as hospital transfer from [facility] with a-fib (HR 120's). Per patient this morning is the first time he has been aware of an irregular, fast heart rhythm. He was started on a cardizem gtt at 5mg/hr at OSH - HR currently remains in the 120's. Case discussed with Dr. Deleon - will stop cardizem & begin po amio taper with low dose BB. Replace electrolytes. NPO after MN . OK for DCCV 07/13- back to NSR -INR 2.1. Will discharge on coumadin. office called-will manage coumadin. INR to be drawn on Thursday Pericardial effusion 07/12/2010 06/01/2012 Overview: 07/[address] report, patient has a 1.5cm posterior pericardial effusion. VS stable & no other physiological signs of tamponade. Echo today- no increase in pericardial effusion. Monitor now on heparin IV and coumadin. No need to repeat per Dr. Hoff. Recommend repeat after discharge. PE (pulmonary embolism) 07/12/2010 08/31/19 Overview: Per OSH CT report, patient has a filling defect in the posterior basal segmental branch of the right lobe pulmonary artery compatible with an acute pulmonary embolism. He was treated with lovenox injection & transferred to for further eval. Patient denies CP, dyspnea - has not demonstrated increased 02 demand. Concern for concominant pericardial effusion - No increase in pericardial effusion. Per radiology read of OSH CT scan - concurs w/ acute PE. OK w/ Dr Deleon to d/c pt on lovenox and f/up w/ Vascular Medicine on outpatient basis- he has no SX VERDUGO SOB- the patient could not afford the lovenox- will remain inpatient and start IV heparin and PO coumadin. -Discharge on coumadin Thrombocytopenia 07/05/2010 07/12/2010 Overview: Plts lower today than yesterday 81K. HIT panel negative, wires out- Hypotension 07/03/2010 07/04/2010 Overview: levophed gtt for MAP >60-65. 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 Pancho Hardy. He is a Buddhist & refuses blood products. The morning of 07/12/10 he used a mechanical cuff as per his usual routine to check his blood pressure & noticed that his HR was in the 120's & was irregular - he denies symptoms but went to the [facility] ER. EKG showed A-fib with HR ~120's. CT scan was performed which, per report, was remarkable for small bilateral pleural effusions, a small posterior pericardial effusion measuring 1.5cm, & a filling defect in the posterior basal segmental branch of the right lobe pulmonary artery compatible with an acute pulmonary embolism. The patient was treated with lovenox injection, IV cardizem & readmitted 07/12/10 back to [facility] for further care. 07/13 to DCCV 07/12 successful, increased BB, US DVT LE- negative as CT scan OSH showed R sub segmental PE, OK per Dr. Deleon to d/c on lovenox and f/up VM- patient unable to afford lovenox- will treat as inpatient 07/17 room air, NSR, ambulating independently, heparin/coumadin, diuresis, dc planning home 2-3 days when INR >2.0 -Will discharge on coumadin Stress hyperglycemia 07/03/2010 07/07/2010 Overview: Requiring minimal coverage, will dc Atelectasis 07/03/2010 07/12/2010 Overview: PEP / OOB to chair TID for meals, and ambulate in the halls, xray prior to dc Pleural effusion 07/03/2010 06/01/2012 Overview: On RA. No c/o dyspnea. CXR 07/13: small bilateral pleural effusions and mild atelectasis; Discharge on lasix. Encourage C/DB/PEP and OOB/ambulation. discharge planning 06/28/2010 06/01/2012 Overview: Age 74 lives in [place], [place] with spouse. Will follow up with local PCP Dr. Mock and Dr. Cota at [facility]. Dr. Mock will monitor PT/INR at discharge. office called and updated. INR to be drawn Thursday am. Can schedule an appointment with VM at discharge to be seen in 4 weeks. Pre-op testing 06/28/2010 07/12/2010 Overview: Images from the original note were not included. [facility] PRE-OP CHECKLIST Surgeon: Hernan Perez M.D. Informed Consent Completed: yes STS Score: 1.0% CAD: No Is intended procedure a CABG: No - is a beta bertha ordered? No - reason: no CAD H & P completed: Yes 02/21/2010 updated 06/28/2010 PA/LAT: Completed CT: N/A MRI: N/A LE US: N/A Cath: Yes - reviewed: Yes Echo:Completed EKG: Completed EF %: 60 PI's: N/A Carotid: N/A Mapping: N/A Dental: done PFT's: N/A Basename 06/28/10 0947 WBC 8.09 HB 15.4 HCT 46.4 PLT 209 INR 1.0 CREAT 1.01 UA: Abnormal HCG:N/A ABO/ABO Confirmed: no JW Blood ordered: No SA Swab: Yes - results: neg Last Dose of Anticoagulation: ASA LD_06/28 Op Note: N/A Pacemaker Check: N/A Consults: na DM: No Cardiac Surgical prep: Yes SIGNATURE: Andreea Bridges Rn CHECKED BY: yuly DATE of SERVICE: 06/28/2010 TIME of SERVICE: 3:29 PM documented as of this encounter (statuses as of 08/30/2022) [facility]* Diagnosis Recurrent deep vein thrombosis (DVT) (HCC)- Primary 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 Acute deep vein thrombosis (DVT) of left femoral vein (HCC) Primary hypertension Unspecified essential hypertension Anticoagulation management encounter Encounter for therapeutic drug monitoring documented in this encounter [facility] note* Diagnosis 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 Anticoagulation management encounter Encounter for therapeutic drug monitoring documented in this encounter [facility] note* Diagnosis Primary hypertension Unspecified essential hypertension documented in this encounter [facility] note* Diagnosis SOB (shortness of breath)- Primary Shortness of breath documented in this encounter [facility] note* Diagnosis S/P AVR- Primary Heart valve replaced by other means documented in this encounter [facility] note* Diagnosis S/P AVR (aortic valve replacement)- Primary Heart valve replaced by other means Primary hypertension Unspecified essential hypertension Hypercholesterolemia Pure hypercholesterolemia documented in this encounter [facility] for referral (narrative)* Outpatient Procedure (Routine) - Closed Specialty Diagnoses / Procedures Referred By Contac t Referred To Contact [facility] [place] [facility] Diagnoses 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 Recurrent deep vein thrombosis (DVT) (HCC) Acute deep vein thrombosis (DVT) of left femoral vein (HCC) Procedures US LEG VEIN DVT UNL VAS LAB DUP-SCAN XTR VEINS UNILATERAL/LIMITED STUDY Andreea Robertson MD [address] [place] [address] [facility] [place] [address] Referral ID Status Reason Start Date Expiration Date V isits Requested Visits Authorized [id number] Closed Auto-Generate d Referral 08/12/2021 08/12/2022 1 1 [facility] for referral (narrative)* Outpatient Procedure (Routine) - Authorized Specialty Diagnoses / Procedures Referred By Contac t Referred To Contact [facility] Diagnoses SOB (shortness of breath) Procedures ECHO ECHO TTHRC R-T 2D W/WOM-MODE COMPL SPEC&COLR D Shimon Cota MD [address] [place] [address] [place] [address] Referral ID Status Reason Start Date Expiration Date Visits Requested Visits Authorized [id number] Authorized Auto-Generat ed Referral 2 04/15/2023 [facility] Procedure (Routine) - Authorized Specialty Diagnoses / Procedures Referred By Contac t Ref[facility] Diagnoses S/P AVR Procedures ECG COMPLETE ECG ROUTINE ECG W/LEAST 12 LDS W/I&R Shimon Cota MD [address] [place] [address] [facility] [place] [address] [place] [address] Referral ID Status Reason Start Date Expiration Date Visits Requested Visits Authorized [id number] Authorized Auto-Generat ed Referral 06/17/2022 06/17/2023 1 1 [facility] Summary Purpose Family History No Family History Records FoundNo Family History Records Found Advance Directives No Advanced Directives Records FoundDocuments on File Type Date Recorded 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 Advance Directive(s) 07/04/2010 9:53 PM Documents on File Type Date Recorded 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 Advance Directive(s) 07/04/2010 9:53 PM Additional Source Comments (unrecognized sect ion and content) No Status Records FoundNo Status Records Found INFORMATION SOURCE (unrecogn ized section and content) DATE CREATED AUTHOR AUTHOR'S ORGANIZ ATION 09/01/2022 [facility] Source Comments (unrecognize d section and content) In the event this informatio n is protected by the Federal Confidentiality of Alcohol and Drug Abuse Patient Records regulations: The Federal rules restrict any use of the information to criminally investigate or prosecute any alcohol or drug abuse patient.[facility] the event this information is protected by the Federal Confidentiality of Alcohol and Drug Abuse Patient Records regulations: The Federal rules restrict any use of the information to criminally investigate or prosecute any alcohol or drug abuse patient.[facility] the event this information is protected by the Federal Confidentiality of Alcohol and Drug Abuse Patient Records regulations: The Federal rules restrict any use of the information to criminally investigate or prosecute any alcohol or drug abuse patient.[facility] the event this information is protected by the Federal Confidentiality of Alcohol and Drug Abuse Patient Records regulations: The Federal rules restrict any use of the information to criminally investigate or prosecute any alcohol or drug abuse patient.[facility] the event this information is protected by the Federal Confidentiality of Alcohol and Drug Abuse Patient Records regulations: The Federal rules restrict any use of the information to criminally investigate or prosecute any alcohol or drug abuse patient.[facility] the event this information is protected by the Federal Confidentiality of Alcohol and Drug Abuse Patient Records regulations: The Federal rules restrict any use of the information to criminally investigate or prosecute any alcohol or drug abuse patient.[facility] Reason for Visit (unrecogniz ed section and content) Specialty Diagnoses / Procedures Referred By Morgan baptiste Referred To Contact Vascular Medicine Diagnoses 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 Procedures CONSULT TO VASCULAR MEDICINE OFFICE/OUTPATIENT [facility] 60-74 MINUTES Shimon Cota MD [address] [place] [id number] Referral ID Status Reason Start Date Expiration Date V isits Requested Visits Authorized [id number] Closed PCP Requested Referral 07/15/2021 07/15/2022 1 1 Reason Comments Follow Up Reason Onset Date Comments Refill Request 01/23/2022 Care Teams (unrecognized sec tion and content) 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 Relationship Specialty Start Date End Date Konstantin Monteiro MD PCP - General Internal Medicine 11/21/16 Shimon Cota MD [address] [place] [address] Primary Staff Physician Cardiology 07/20/18 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 Relationship Specialty Start Date End Date Konstantin Monteiro MD PCP - General Internal Medicine 11/21/16 Shimon Cota MD [address] [place] [address] Primary Staff Physician Cardiology 07/20/18 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 This clinical summary was aggregated from multiple sources. Caution should be exercised in using it in the provision of clinical care. This summary normalizes information from multiple sources, and as a consequence, information in this document may materially change the coding, format and clinical context of patient data. In addition, data may be omitted in some cases. CLINICAL DECISIONS SHOULD BE BASED ON THE PRIMARY CLINICAL RECORDS. [facility] [employer] [facility]. provides no warranty or guarantee of the accuracy or completeness of information in this document.
== END | disposition home or self-care (01) ==
LOC: CVS 12:10
PROVIDERS: PCP Internal Medicine; Referring Provider Nurse Practitioner Family; Visit Provider Nurse Practitioner Family
DX: Z86.718 Personal history of other venous thrombosis and embolism (principal)
CPT/HCPCS: 93971

== ENCOUNTER → 2023-05-19 | Outpatient (CLI) | payer MEDICARE, SELFPAY ==
--- OUTSIDE RECORDS SUMMARY | 2023-05-19 14:30 | XMS RPT_ITS | CCD ---
Author Name Unknown Address [address] [place] [address] Organization [facility] Care Team Providers Care Personal Injury Paralegal Name Role Phone Omi Andres Unavailable Unavailable [...] 165.1 cm Shimon Cota MD Work Phone: [facility] 08-28-2022 10:44-0400 Body weight 78.02 kg Shimon Cota MD Work Phone: [facility] 08-28-2022 10:44-0400 Diastolic blood pressure 65 mm[Hg] Shimon Cota MD Work Phone: [facility] 08-28-2022 10:44-0400 Heart rate 56 /min Shimon Cota MD Work Phone: [facility] 08-28-2022 10:44-0400 SaO2% (BldA) [Mass fraction] 98 % Shimon Cota MD Work Phone: [facility] 08-28-2022 10:44-0400 Systolic blood pressure 169 mm[Hg] Shimon Cota MD Work Phone: [facility] 09-16-2021 10:02-0400 Body height 174 cm Andreea Robertson MD Work Phone: [facility] 09-16-2021 10:020400 Body weight 78.83 kg Andreea Robertson MD Work Phone: [facility] 09-16-2021 10:02-0400 Diastolic blood pressure 74 mm[Hg] Andreea Robertson MD Work Phone: [facility] 09-16-2021 10:02-0400 Heart rate 58 /min Andreea Robertson MD Work Phone: [facility] 09-16-2021 10:02-0400 SaO2% (BldA) [Mass fraction] 96 % Andreea Robertson MD Work Phone: [facility] 09-16-2021 10:02-0400 Systolic blood pressure 163 mm[Hg] Andreea Robertson MD Work Phone: [facility] 08-12-2021 13:03-0400 Diastolic blood pressure 75 mm[Hg] Andreea Robertson MD Work Phone: [facility] 08-12-2021 13:03-0400 Systolic blood pressure 152 mm[Hg] Andreea Robertson MD Work Phone: [facility] 08-12-2021 13:00-0400 Body height 174 cm Andreea Robertson MD Work Phone: [facility] 08-12-2021 13:00-0400 Body weight 79.88 kg Andreea Robertson MD Work Phone: [facility] 08-12-2021 13:00-0400 Heart rate 72 /min Andreea Robertson MD Work Phone: [facility] 08-12-2021 13:00-0400 SaO2% (BldA) [Mass fraction] 97 % Andreea Robertson MD Work Phone: [facility] 02-06-2017 07:45-0400 BMI (Body Mass Index) 27.57 kg/m2 [facility] Work Phone: 02-06-2017 07:45-0400 Body Temperature 97.9 [degF] Omi Antunez [employer] [facility] Work Phone: 02-06-2017 07:45-0400 BP Diastolic 74 mm[Hg] Omi Antunez [employer] [facility] Work Phone: 02-06-2017 07:45-0400 BP Systolic 146 mm[Hg] Omi Antunez [employer] [facility] Work Phone: 02-06-2017 07:45-0400 Height 173.99 cm Omi Connorder [employer] [facility] Work Phone: 02-06-2017 07:45-0400 Pulse (Heart Rate) 56 /min Omi Antunez [employer] [facility] Work Phone: 02-06-2017 07:45-0400 Respiratory Rate 16 /min Omi Antunez [employer] [facility] Work Phone: 02-06-2017 07:45-0400 Weight 83.46 kg Omi Antunez [employer] [facility] Work Phone: 02-02-2017 03:56-0400 Body surface area Derived from formula 53.77 mL/min Omi Antunez [employer] [facility] Work Phone: 01-06-2017 09:04-0400 BMI (Body Mass Index) 27.14 kg/m2 Omi Connorder [employer] [facility] Work Phone: 01-06-2017 09:04-0400 Body Temperature 98.6 [degF] Omi Connorder [employer] [facility] Work Phone: 01-06-2017 09:04-0400 BP Diastolic 81 mm[Hg] Omi Antunez [employer] [facility] Work Phone: 01-06-2017 09:04-0400 BP Systolic 146 mm[Hg] Omi Connorder [employer] [facility] Work Phone: 01-06-2017 09:04-0400 Height 173.99 cm Omi Antunez [employer] [facility] Work Phone: 01-06-2017 09:04-0400 Pulse (Heart Rate) 71 /min Omi Antunez [employer] [facility] Work Phone: 01-06-2017 09:04-0400 Respiratory Rate 18 /min Omi Antunez [employer] [facility] Work Phone: 01-06-2017 09:04-0400 Weight 82.16 kg Omi Antunez [employer] [facility] Work Phone: 12-31-2016 21:06-0400 Body surface area Derived from formula 50.44 mL/min Omi Antunez [employer] [facility] Work Phone: 11-13-2016 08:14-0400 BMI (Body Mass Index) 26.84 kg/m2 Konstantin Monteiro MD [facility] 11-13-2016 08:14-0400 BP Diastolic 90 mm[Hg] Konstantin Monteiro MD [facility] 11-13-2016 08:14-0400 BP Systolic 160 mm[Hg] Konstantin Monteiro MD [facility] 11-13-2016 08:14-0400 Height 173.99 cm Konstantin Monteiro MD [facility] 11-13-2016 08:14-0400 Pulse (Heart Rate) 50 /min Konstantin Monteiro MD [facility] 11-13-2016 08:14-0400 Weight 81.25 kg Konstantin Monteiro MD [facility] Encounters Encounter Date Encounter Type Care Provider Facility Start: 08-28-2022 End: 08-28-2022 Patient encounter procedure Shimon Cota MD Work Phone: Cardiology Procedures Date Procedure Procedure Detail Performing Clinician Start: 01-27-2017 End: 02-03-2017 *BMP Omi Marie Antunez [employer] Start: 01-27-2017 End: 02-03-2017 *CBC with Differential Omi Frank Antunez [employer] Start: 01-27-2017 End: 01-28-2017 *BMP Omi Frank Antunez [employer] Start: 01-27-2017 End: 01-28-2017 *CBC with Differential Omi Antunez [employer] Start: 01-06-2017 End: 01-28-2017 Follow Up Appt 1 month Omi Antunez [employer] Start: 01-06-2017 End: 01-06-2017 Hemoglobin A1c/Hemoglobin.total in Blood Omi Antunez [employer] Start: 01-06-2017 End: 01-28-2017 Follow Up Appt 1 month Omi Antunez [employer] Start: 01-06-2017 End: 01-06-2017 HbA1c Omi Antunez [employer] Start: 12-31-2016 End: 12-31-2016 Urinalysis Omi Antunez [employer] Start: 12-11-2016 End: 01-07-2017 INR in Platelet [...] Author Start: 07-15-2024 DIABETES SCREEN DIABETES SCREEN [facility] Start: 01-02-2023 Influenza vaccination INFLUENZA (Season Ended) [facility] Start: 07-15-2022 Hepatitis B surface antibody level LDL CHOLESTEROL [facility] Start: 05-04-2022 ADVANCE DIRECTIVE DISCUSSION ADVANCE DIRECTIVE DISCUSSION [facility] Start: 05-04-2022 DEPRESSION ASSESSMENT DEPRESSION ASSESSMENT [facility] Start: 01-02-2022 Influenza vaccination [facility] Start: 05-04-2021 ADVANCE DIRECTIVE DISCUSSION ADVANCE DIRECTIVE DISCUSSION [facility] Start: 05-04-2021 DEPRESSION ASSESSMENT DEPRESSION ASSESSMENT [facility] Start: 02-12-2017 End: 02-12-2017 Appointment Appointment [facility] Start: 02-06-2017 End: 02-06-2017 Follow Up Appt 6 months Follow Up Appt 6 months [facility] Work Phone: Start: 02-06-2017 End: 02-06-2017 Appointment Appointment [facility] Work Phone: Start: 02-03-2017 End: 02-03-2017 Appointment Appointment [facility] Work Phone: Start: 01-28-2017 End: 01-28-2017 INR Coag RelTime (PPP) *PT/INR - Standing Order [facility] Work Phone: Start: 01-28-2017 End: 01-28-2017 INR Coag RelTime (PPP) *PT/INR - Standing Order [facility] Work Phone: Start: 01-27-2017 End: 01-28-2017 *BMP *BMP [facility] Work Phone: Start: 01-27-2017 End: 01-28-2017 *CBC with Differential *CBC with Differential [facility] Work Phone: Start: 01-27-2017 End: 01-28-2017 *BMP *BMP [facility] Work Phone: Start: 01-27-2017 End: 01-28-2017 *CBC with Differential *CBC with Differential [facility] Work Phone: Start: 01-06-2017 End: 01-28-2017 Follow Up Appt 1 month Follow Up Appt 1 month [facility] Work Phone: Start: 01-06-2017 End: 01-06-2017 Hemoglobin A1c/Hemoglobin.total mass fraction (Bld) *HgA1C [facility] Work Phone: Start: 01-06-2017 End: 01-06-2017 Appointment Appointment [facility] Work Phone: Start: 01-06-2017 End: 01-28-2017 Follow Up Appt 1 month Follow Up Appt 1 month [facility] Work Phone: Start: 01-06-2017 End: 01-06-2017 HbA1c *HgA1C [facility] Work Phone: Start: 12-11-2016 End: 01-07-2017 INR Coag RelTime (PPP) *PT/INR - Standing Order [facility] Work Phone: Start: 12-11-2016 End: 01-07-2017 Coagulation factor induced.INR assay in platelet poor plasma *PT/INR - Standing Order [facility] Start: 11-13-2016 End: 11-13-2016 *CBC with Differential *CBC with Differential [facility] Work Phone: Start: 11-13-2016 End: 11-14-2016 *CMP Complete Metabolic Panel *CMP Complete Metabolic Panel [facility] Work Phone: Start: 11-13-2016 End: 11-14-2016 Follow Up Appt 3 months Follow Up Appt 3 months [facility] Work Phone: Start: 11-13-2016 End: 11-14-2016 INR Coag RelTime (PPP) *PT/INR [facility] Work Phone: Start: 11-13-2016 End: 11-14-2016 Lipid panel [AGGREGATE] *Lipid Profile [facility] Work Phone: Start: 11-13-2016 End: 11-14-2016 PSA *PSA (Prostate Specific Antigen) [facility] Work Phone: Start: 11-13-2016 End: 11-13-2016 Appointment Appointment [facility] Start: 11-13-2016 End: 11-13-2016 *CBC with Differential *CBC with Differential [facility] Start: 11-13-2016 End: 11-14-2016 *CMP Complete Metabolic Panel *CMP Complete Metabolic Panel [facility] Start: 11-13-2016 End: 11-14-2016 Coagulation factor induced.INR assay in platelet poor plasma *PT/INR [facility] Start: 11-13-2016 End: 11-14-2016 Follow Up Appt 3 months Follow Up Appt 3 months [facility] Start: 11-13-2016 End: 11-14-2016 Lipid panel [AGGREGATE] *Lipid Profile [facility] Start: 11-13-2016 End: 11-14-2016 PSA *PSA (Prostate Specific Antigen) [facility] Start: 2001 PNEUMOCOCCAL: 65+ (1 - PCV) PNEUMOCOCCAL: 65+ (1 - PCV) [facility] Start: 2001 PNEUMOVAX AGE 65 AND OVER WITH 5YR LOOKBACK (#1) PNEUMOVAX AGE 65 AND OVER WITH 5YR LOOKBACK (#1) [facility] Start: 1986 SHINGRIX VACCINE (1 of 2) SHINGRIX VACCINE (1 of 2) [facility] Start: 11-11-1955 Urine microalbumin profile DTAP,TDAP,TD (1 - Tdap) [facility] Start: 1941 COVID-19 VACCINE (#1) COVID-19 VACCINE (#1) [facility] Start: 1941 COVID-19 VACCINE (1) COVID-19 VACCINE (1) [facility] Start: 05-13-1937 COVID-19 VACCINE (#1) COVID-19 VACCINE (#1) [facility] End: 06-17-2023 ECG COMPLETE ECG COMPLETE ECG Routine S/P AVR 1 Occurrences starting 06/17/2022 until 06/17/2023 [facility] Work Phone: Payers Date Payer Category Payer Medicare MEDICARE MEDICAR E A AND B [id number] 2001-Present [phone] [place] [address] Medicare [id number] 2001 Medicare MEDICARE MEDICAR E A AND B [id number] 2001-Present [phone] [place] [address] Medicare [id number] 2001 Medicare [id number] Social History Date Type Detail Facility Tobacco smoking stat [facility] Never smoked tobacco [facility] Start: 08-12-2021 End: 08-28-2022 Alcohol intake Current drinker of alcohol (finding) [facility] Start: 06-19-2010 History SDOH Alcohol Comment occasionally- 1 glass wine 1-2x weekly [facility] Start: 1935 Sex Assigned At Not on file [facility] Start: 08-02-2021 End: 09-16-2021 Exposure to SARS-CoV-2 (event) Not sure [facility] Medical Equipment Procedure Code Equipment Code Equipment Origin al Text Equipment Identifier Dates Valve Aort 23mm C-E Prm [facility] - [id number] Start: 07-02-2010 Clinical Notes 07-12-2010 to 08-28-2022 Shimon Cota MD - 08/28/2022 11:35 AM EDTBgilberto Jimenez - 04/15/2022 8:43 AM ESTTelephone Encounter - Faby Cuenca - 01/23/2022 9:38 AM COLETAndreea Robertson MD - 09/16/2021 11:18 AM EDT Note Date & Type Note Facility 08-28-2022 Note HNO ID: [id number] Author: Shimon Cota MD Service: ? Author Type: Physician Type: Progress Notes Filed: 08/30/2022 11:33 AM Note Text: [facility] [place] [facility] Department of Cardiovascular Medicine SECTION OF CARDIOVASCULAR IMAGING OUTPATIENT VISIT DATE August 28, 2022 OUTPATIENT VISIT TYPE ESTABLISHED PRIMARY CARE PHYSICIAN: Konstantin Monteiro ([facility]) [address] [place] [id number] CHIEF COMPLAINT: Follow up HISTORY OF PRESENT [...] (benign prostatic hyperplasia) CAD (coronary artery disease), eek coronary artery 07/04/2010 Hyperlipidemia 07/04/2010 Hypertension 08/08/2010 [...] Mother Heart Father at age 80 - [place] Coronary Artery Disease Father None Brother Living [...] a statin. CONTACT INFORMATION: Shemar Cota MD, [facility] 08-28-2022 History of Present illness Narrative Images from the original note were not included. [facility] Department of Cardiovascular Medicine SECTION OF CARDIOVASCULAR IMAGING OUTPATIENT VISIT DATE August 28, 2022 OUTPATIENT VISIT TYPE ESTABLISHED PRIMARY CARE PHYSICIAN: Konstantin Monteiro ([facility]) [address] [place] [address] CHIEF COMPLAINT: Follow up HISTORY OF PRESENT [...] (benign prostatic hyperplasia) CAD (coronary artery disease), eek coronary artery 07/04/2010 Hyperlipidemia 07/04/2010 Hypertension 08/08/2010 [...] Mother Heart Father at age 80 - [place] Coronary Artery Disease Father None Brother Living [...] [facility] documented in this encounter [facility] 04-15-2022 Note HNO ID: [id number] Author: Tena Jimenez Service: ? Author Type: ? Type: Progress Notes Filed: 04/15/2022 8:44 AM Note Text: Ho [facility] 04-15-2022 History of Present illness Narrative Ho documented in this encounter [facility] 01-23-2022 Miscellaneous Notes Call from patient requesting refill. Requested Prescriptions Pending Prescriptions Disp Refills hydroCHLOROthiazide (HYDRODIURIL, ESIDRIX) 25 mg tablet 60 tablet 0 Sig: Take 1 tablet by mouth once daily. Patient last seen 07/15/21 Faby Cuenca documented in this encounter [facility] 09-16-2021 Note HNO ID: [id number] Author: Andreea Robertson MD Service: ? Author Type: Physician Type: Progress Notes Filed: 09/22/2021 11:22 PM Note Text: [facility] Department of Cardiovascular Medicine SECTION [...] DVT. 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 Anticoagulated with coumadin for 3 months. __Acute left lower extremity DVT in 2013. Anticoagulated on coumadin until 2016, discontinued by cardiology as patient reduced dose frequently himself due to bruising. __?acute on chronic DVT on 06/19/2021 after presenting to [facility] with left lower extremity pain. ? He [...] provoking factors, he endorses frequent drives to [facility] and [place], and prolonged periods working with [employer]. ? Currently it is unclear if he had an acute DVT 06/19/2021, so would endorse that he that he complete 3 months of therapeutic anticoagulation. Following that will reassess to determine whether he should continue low dose of apixaban 2.5mg bid for prevention of future VTE events. ? Recommendations: __Will obtain duplex US images from [facility]. Need to review / compare to [...] to get apixaban sent to him from immunologist without cost. Admits that he has not [...] or clubbing. Periphe (more content not included)... [facility] 09-16-2021 History of Present illness Narrative Images from the original note were not included. [facility] Department of Cardiovascular Medicine SECTION [...] DVT. 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 Anticoagulated with coumadin for 3 months. __Acute left lower extremity DVT in 2013. Anticoagulated on coumadin until 2016, discontinued by cardiology as patient reduced dose frequently himself due to bruising. __?acute on chronic DVT on 06/19/2021 after presenting to [facility] with left lower extremity pain. 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 Currently it is unclear if he had an acute DVT 06/19/2021, so would endorse that he that he complete 3 months of therapeutic anticoagulation. Following that will reassess to determine whether he should continue low dose of apixaban 2.5mg bid for prevention of future VTE events. Recommendations: __Will obtain duplex US images from [facility]. Need to review / compare to [...] to get apixaban sent to him from immunologist without cost. Admits that he has not [...] DVT. 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 Anticoagulated with coumadin for 3 months. __Acute left lower extremity DVT in 2013. Anticoagulated on coumadin until 2017, discontinued by cardiology as patient reduced dose frequently himself due to bruising. __?acute on chronic DVT on 06/19/2021 after presenting to [facility] with left lower extremity pain. He has been treated with apixaban since presenting with ?- new DVT on 06/19/2021. In terms of provoking factors, he endorses frequent drives to [facility] and [place], and prolonged periods working with [employer]. Unclear if he had an acute DVT [...] Konstantin Monteiro MD documented in this encounter [facility] 08-12-2021 Instructions Leo Hudson MD - 08/12/2021 3:14 PM EDT Great seeing you today - We recommend that you take eliquis 5 mg twice a day to complete 3 months of treatment (until September 16, 2021). - After that you can go down to Eliquis 2.5 mg twice a day. documented in this encounter [facility] 08-12-2021 History of Present illness Narrative Images from the original note were not included. [facility] Department of Cardiovascular Medicine SECTION [...] calf pain after 3.[address] from [place] to [place]. Presented to [facility] and was diagnosed with acute DVT. He was bridged to coumadin with lovenox. Continued coumadin until 2016 and was then stopped. He presented to [facility] on 06/19/2021 with pain along the [...] (benign prostatic hyperplasia) CAD (coronary artery disease), eek coronary artery (07/04/2010) Hyperlipidemia (07/04/2010), Hypertension (08/08/2010), [...] DVT. 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 Anticoagulated with coumadin for 3 months. __Acute left lower extremity DVT in 2013. Anticoagulated on coumadin until 2016, discontinued by cardiology as patient reduced dose frequently himself due to bruising. __?acute on chronic DVT on 06/19/2021 after presenting to [facility] with left lower extremity pain. He has [...] provoking factors, he endorses frequent drives to [facility] and [place], and prolonged periods working with [employer]. Currently it is unclear if he had an acute DVT 06/19/2021, so would endorse that he that he complete 3 months of therapeutic anticoagulation. Following that will reassess to determine whether he should continue low dose of apixaban 2.5mg bid for prevention of future VTE events. Recommendations: __Will obtain duplex US images from [facility]. Need to review / compare to [...] August 12, 2021 TIME: 7:49 PM PAGER: [phone] Note: Case to be discussed with Vascular Medicine Staff. Recommendations are not final until addended by Staff. [facility] STAFF PHYSICIAN NOTE OF PERSONAL INVOLVEMENT [...] SERVICE: 2:13 PM documented in this encounter [facility] documented as of this encounter (statuses as of 08/13/2021) [facility]2011 History of Past illness Narrative* Problem Noted [...] with Dr. Pancho Hardy. 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 The morning of 07/12/10 he used a mechanical cuff as per his usual routine to check his blood pressure & noticed that his HR was in the 120's & was irregular - he denies symptoms but went to the [facility] ER. EKG showed A-fib with HR [...] IV cardizem & readmitted 07/12/10 back to [facility] for further care. 07/13 to DCCV 07/12 [...] 06/28/2010 06/01/2012 Overview: Age 74 lives in [place], [place] with spouse. Will follow up with local PCP Dr. Mock and Dr. Cota at [facility]. Dr. Mock will monitor PT/INR at discharge. [...] of this encounter (statuses as of 09/23/2021) [facility] History of Past illness Narrative* Problem Noted [...] with Dr. Pancho Hardy. 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 The morning of 07/12/10 he used a mechanical cuff as per his usual routine to check his blood pressure & noticed that his HR was in the 120's & was irregular - he denies symptoms but went to the [facility] ER. EKG showed A-fib with HR [...] IV cardizem & readmitted 07/12/10 back to [facility] for further care. 07/13 to DCCV 07/12 [...] 06/28/2010 06/01/2012 Overview: Age 74 lives in [place], [place] with spouse. Will follow up with local PCP Dr. Mock and Dr. Cota at [facility]. Dr. Mock will monitor PT/INR at discharge. [...] of this encounter (statuses as of 01/23/2022) [facility] History of Past illness Narrative* Problem Noted [...] with Dr. Pancho Hardy. 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 The morning of 07/12/10 he used a mechanical cuff as per his usual routine to check his blood pressure & noticed that his HR was in the 120's & was irregular - he denies symptoms but went to the [facility] ER. EKG showed A-fib with HR [...] IV cardizem & readmitted 07/12/10 back to [facility] for further care. 07/13 to DCCV 07/12 [...] 06/28/2010 06/01/2012 Overview: Age 74 lives in [place], [place] with spouse. Will follow up with local PCP Dr. Mock and Dr. Cota at [facility]. Dr. Mock will monitor PT/INR at discharge. [...] of this encounter (statuses as of 04/15/2022) [facility] History of Past illness Narrative* Problem Noted [...] with Dr. Pancho Hardy. 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 The morning of 07/12/10 he used a mechanical cuff as per his usual routine to check his blood pressure & noticed that his HR was in the 120's & was irregular - he denies symptoms but went to the [facility] ER. EKG showed A-fib with HR [...] IV cardizem & readmitted 07/12/10 back to [facility] for further care. 07/13 to DCCV 07/12 [...] 06/28/2010 06/01/2012 Overview: Age 74 lives in [place], [place] with spouse. Will follow up with local PCP Dr. Mock and Dr. Cota at [facility]. Dr. Mock will monitor PT/INR at discharge. [...] of this encounter (statuses as of 06/17/2022) [facility] History of Past illness Narrative* Problem Noted Date Resolved Date Atrial fibrillation 07/12/2010 08/30/2022 Overview: Readmitted as hospital transfer from [facility] with a-fib (HR 120's). Per patient [...] with Dr. Pancho Hardy. 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 The morning of 07/12/10 he used a mechanical cuff as per his usual routine to check his blood pressure & noticed that his HR was in the 120's & was irregular - he denies symptoms but went to the [facility] ER. EKG showed A-fib with HR [...] IV cardizem & readmitted 07/12/10 [facility] to [facility] [facility]. [facility] to [facility] 07/12 [...] 06/28/2010 06/01/2012 Overview: Age 74 lives in [place], [place] with spouse. Will follow up with local PCP Dr. Mock and Dr. Cota at [facility]. Dr. Mock will monitor PT/INR at discharge. 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 Anticoagulation management encounter Encounter for therapeutic drug monitoring documented in this encounter [facility] note* Diagnosis Primary hypertension Unspecified essential hypertension documented in this encounter [facility] note* Diagnosis SOB (shortness of breath)- Primary Shortness of breath documented in this encounter [facility] note* Diagnosis S/P AVR- Primary Heart valve replaced by other means documented in this encounter [facility] note* Diagnosis S/P AVR (aortic valve replacement)- Primary Heart valve replaced by other means Primary hypertension Unspecified essential hypertension Hypercholesterolemia Pure hypercholesterolemia documented in this encounter [facility] for referral (narrative)* Outpatient Procedure (Routine) - Closed Specialty Diagnoses / Procedures Referred By Contac t Referred To Contact [facility] [place] Diagnoses 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 Recurrent deep vein thrombosis (DVT) (HCC) Acute deep vein thrombosis (DVT) of left femoral vein (HCC) Procedures US LEG VEIN DVT UNL VAS LAB DUP-SCAN XTR VEINS UNILATERAL/LIMITED STUDY Andreea Robertson MD [address] [place] [address] [facility] [place] [address] Referral ID Status Reason Start Date Expiration Date V isits Requested Visits Authorized [id number] Closed Auto-Generate d Referral 08/12/2021 08/12/2022 1 1 [facility] for referral (narrative)* Outpatient Procedure (Routine) - Authorized Specialty Diagnoses / Procedures Referred By Contac t Referred To Contact [facility] Diagnoses SOB (shortness of breath) Procedures ECHO ECHO TTHRC R-T 2D W/WOM-MODE COMPL SPEC&COLR D Shimon Cota MD [address] [place] [address] [place] [address] Referral ID Status Reason Start Date Expiration Date Visits Requested Visits Authorized [id number] Authorized Auto-Generat ed Referral 2 04/15/2023 1 [facility] Procedure (Routine) - Authorized Specialty Diagnoses / Procedures Referred By Contac t Referred To [facility] Diagnoses S/P AVR Procedures ECG COMPLETE ECG ROUTINE ECG W/LEAST 12 LDS W/I&R Shimon Cota MD [address] [place] [address] [facility] [place] [address] [place] [address] Referral ID Status Reason Start Date Expiration Date Visits Requested Visits Authorized [id number] Authorized Auto-Generat ed Referral 06/17/2022 06/17/2023 1 1 [facility] Summary Purpose Family History No Family History Records FoundNo Family History Records Found Advance Directives No Advanced Directives Records FoundDocuments on File Type Date Recorded 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 Advance Directive(s) 07/04/2010 9:53 PM Documents on File Type Date Recorded 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 Advance Directive(s) 07/04/2010 9:53 PM Additional Source Comments (unrecognized sect ion and content) No Status Records FoundNo Status Records Found INFORMATION SOURCE (unrecogn ized section and content) DATE CREATED AUTHOR AUTHOR'S ORGANIZ ATION 09/01/2022 [facility] Source Comments (unrecognize d section and content) In the event this informatio n is protected by the Federal Confidentiality of Alcohol and Drug Abuse Patient Records regulations: The Federal rules restrict any use of the information to criminally investigate or prosecute any alcohol or drug abuse patient.[facility] event this information is protected by the Federal Confidentiality of Alcohol and Drug Abuse Patient Records regulations: The Federal rules restrict any use of the information to criminally investigate or prosecute any alcohol or drug abuse patient.[facility] the event this information is protected by the Federal Confidentiality of Alcohol and Drug Abuse Patient Records regulations: The Federal rules restrict any use of the information to criminally investigate or prosecute any alcohol or drug abuse patient.[facility] the event this information is protected by the Federal Confidentiality of Alcohol and Drug Abuse Patient Records regulations: The Federal rules restrict any use of the information to criminally investigate or prosecute any alcohol or drug abuse patient.[facility] the event this information is protected by the Federal Confidentiality of Alcohol and Drug Abuse Patient Records regulations: The Federal rules restrict any use of the information to criminally investigate or prosecute any alcohol or drug abuse patient.[facility] the event this information is protected by the Federal Confidentiality of Alcohol and Drug Abuse Patient Records regulations: The Federal rules restrict any use of the information to criminally investigate or prosecute any alcohol or drug abuse patient.[facility] Reason for Visit (unrecogniz ed section and content) Specialty Diagnoses / Procedures Referred By Morgan baptiste Referred To Contact Vascular Medicine Diagnoses 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 Procedures CONSULT TO VASCULAR MEDICINE OFFICE/OUTPATIENT [facility] 60-74 MINUTES Shimon Cota MD [address] [place] [id number] Referral ID Status Reason Start Date Expiration Date V isits Requested Visits Authorized [id number] Closed PCP Requested Referral 07/15/2021 07/15/2022 1 1 Reason Comments Follow Up Reason Onset Date Comments Refill Request 01/23/2022 Care Teams (unrecognized sec tion and content) Personal Injury Paralegal Relationship Specialty Start Date End Date Konstantin Monteiro MD PCP - General Internal Medicine 11/21/16 Shimon Cota MD [address] [place] [address] Primary Staff Physician Cardiology 07/20/18 Personal Injury Paralegal Relationship Specialty Start Date End Date Konstantin Monteiro MD PCP - General Internal Medicine 11/21/16 Shimon Cota MD [address] [place] [address] Primary Staff Physician Cardiology 07/20/18 Personal Injury Paralegal Relationship Specialty Start Date End Date Konstantin Monteiro MD PCP - General Internal Medicine 11/21/16 Shimon Cota MD [address] [place] [address] Primary Staff Physician Cardiology 07/20/18 Personal Injury Paralegal Relationship Specialty Start Date End Date Konstantin Monteiro MD PCP - General Internal Medicine 11/21/16 Shimon Cota MD [address] [address] Primary Staff Physician Cardiology 07/20/18 [...] BE BASED ON THE PRIMARY CLINICAL RECORDS. [facility]. provides no warranty or guarantee of the accuracy or completeness of information in this document.
[2023-05-19 15:55] LABS: Absolute Lymphocyte Count 1.72 X10^3/uL (0.83-4.51); Absolute Neutrophil Count 5.7 X10^3/uL (2.0-7.7); Basophil# 0.06 X10^3/uL; Basophil% 0.7 % (0-1); Eosinophil# 0.44 X10^3/uL; Hematocrit 47.3 % (40-54); Hemoglobin 15.2 g/dL (13.0-16.5); Lymphocyte # 1.72 X10^3/ul (0.83-4.51); Lymphocyte % 19.5 % (19-41); Mean Corp Hgb Conc 32.1 g/dL (32-36); Mean Corpuscular Hgb 29.7 pg (27.0-32.0); Mean Corpuscular Volume 92.4 fL (80-94); Mean Platelet Vol. 11.2 fl (6.2-12.0); Monocyte# 0.81 X10^3/uL; Monocyte% 9.2 % (0-10); NRBC Flagged by Analyzer 0 % (0-5); Neutrophil # 5.73 X10^3/uL (2.7-7.7); Neutrophil % 65.1 % (47-70); Platelet Count 171 K/mm3 (150-450); RBC Distribution Width CV 13.6 % (11.6-14.6); RBC Distribution Width SD 46.6 fl (35.1-43.9); Red Blood Count 5.12 M/mm3 (4.6-6.2); White Blood Count 8.8 K/mm3 (4.4-11.0)
[2023-05-19 16:37] LABS: ALB/GLOB Ratio 1.2 RATIO (0.9-2.4); AST(SGOT) 25 U/L (15-37); Alanine Aminotransfer ALT/SGPT 21 U/L (16-61); Alkaline Phosphatase 62 U/L (45-117); Anion Gap 9 (5-15); BUN 47 mg/dL (7-18); BUN/Creat Ratio 26.9 RATIO (10-20); Chloride 101 mmol/L (98-107); Creatinine, Serum 1.75 mg/dL (0.70-1.30); EST Glomerular Filtration Rate 39 mL/min (>60); Est Glom Filt Rate - Afr Amer 48 mL/min (>60); Globulin 3.3 g/dL (2.2-4.2); Glucose 86 mg/dL (74-106); Potassium 4.2 mmol/L (3.5-5.1); Protein, Total 7.3 g/dL (6.4-8.2); Sodium Level 137 mmol/L (136-145)
[2023-05-19 16:54] LABS: Microalbumin:Creatinine Ratio 59.2 mg/g CRE (<30 mg/g CRE)
== END | disposition home or self-care (01) ==
LOC: BFHLAB 13:15
PROVIDERS: PCP Nurse Practitioner Family; Visit Provider Nurse Practitioner Family
DX: R60.0 Localized edema (principal); Z86.718 Personal history of other venous thrombosis and embolism
CPT/HCPCS: 36415; 80053; 82043; 82570; 85025; 93971

== ENCOUNTER 2023-12-27 03:34 | Emergency (ER) | payer MEDICARE, SELFPAY ==
[2023-12-27 03:34] VITALS: BP 146/95; PULSE 78; RESP 16; TEMP 36.4; O2SAT 98; BMI 27.5
--- NOTE | 2023-12-27 04:13 | RAD_ITS ---
STUDY: X-RAY CHEST REASON FOR EXAM: Male, 88 years old patient with chest pain. TECHNIQUE: PA and lateral views of the chest. COMPARISON: October 09, 2017. FINDINGS: Cardiac monitoring leads are present. The patient has had a sternotomy. The lungs are clear and expanded. There is no demonstrated pleural abnormality. Cardiac valvular prosthesis is present. Normal mediastinum and vy. Normal visualized pulmonary arteries. There is atherosclerotic calcification of the aortic arch with tortuosity. 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 Normal visualized ribs, clavicles, and shoulders. There is no demonstrated abnormality of the visualized soft tissue structures of the upper abdomen. RAD/Chest PA and Lateral IMPRESSION: No radiographic evidence of acute cardiopulmonary disease. Electronically Signed: Lisa Munoz MD at 5:33 EDT ,
[2023-12-27 04:19] LABS: Absolute Lymphocyte Count 1.76 X10^3/uL (0.83-4.51); Absolute Neutrophil Count 4.8 X10^3/uL (2.0-7.7); Basophil# 0.06 X10^3/uL; Basophil% 0.7 % (0-1); Eosinophil# 0.54 X10^3/uL; Eosinophils% 6.7 % (0-5); Hematocrit 43.1 % (40-54); Hemoglobin 14.2 g/dL (13.0-16.5); Lymphocyte # 1.76 X10^3/ul (0.83-4.51); Lymphocyte % 21.9 % (19-41); Mean Corp Hgb Conc 32.9 g/dL (32-36); Mean Corpuscular Hgb 29.2 pg (27.0-32.0); Mean Corpuscular Volume 88.5 fL (80-94); Mean Platelet Vol. 10.3 fl (6.2-12.0); Monocyte# 0.84 X10^3/uL; Monocyte% 10.4 % (0-10); NRBC Flagged by Analyzer 0 % (0-5); Neutrophil % 59.8 % (47-70); Platelet Count 160 K/mm3 (150-450); RBC Distribution Width CV 14.2 % (11.6-14.6); RBC Distribution Width SD 45.7 fl (35.1-43.9); Red Blood Count 4.87 M/mm3 (4.6-6.2)
[2023-12-27 04:34] VITALS: BP 121/77; PULSE 67; RESP 16
[2023-12-27 04:44] LABS: Anion Gap 8 (5-15); BUN 26 mg/dL (7-18); BUN/Creat Ratio 18.2 RATIO (10-20); Calcium,Total 9.1 mg/dL (8.5-10.1); Chloride 105 mmol/L (98-107); Creatinine, Serum 1.43 mg/dL (0.70-1.30); EST Glomerular Filtration Rate 50 mL/min (>60); Est Glom Filt Rate - Afr Amer 60 mL/min (>60); Estimated Creatinine Clearance 36.83 ml/min; Glucose 109 mg/dL (74-106); Magnesium 1.8 mg/dL (1.6-2.6); Potassium 3.2 mmol/L (3.5-5.1); Sodium Level 139 mmol/L (136-145); Troponin-I HS 45 pg/mL (3.0-78.0)
[2023-12-27 05:00] VITALS: BP 119/64; PULSE 71; RESP 16; O2SAT 96
[2023-12-27] MEDS: Potassium Chloride Oral Tablet 20 MEQ 40 MEQ PO (05:05)
--- NOTE | 2023-12-27 05:10 | EDS_ITS ---
HPI History of Present Illness Chief Complaint: Palpitations Informant: patient and spouse/S.O. Narrative Narrative: Patient is an 88-year-old male with past medical history of hypertension DVT on Eliquis as well as CAD. He states over the last week or so he will have bouts where he feels a very quick 1 to 2-second duration of sharp left-sided chest pain. He states that the pain does not radiate and does not cause nausea vomiting diaphoresis or shortness of breath. He states it only last 1 to 2 seconds and resolve. He reports he has not seen his doctor for this but based on his history had concern that this may be a blocked artery and therefore comes in for evaluation [facility] Medical History (Updated 12/27/23 @ 23:[address] John Flores, ) Seizure History of basal cell carcinoma Aortic valve disease History of deep venous thrombosis Hypokalemia Heart murmur Heart valve problem Hypertension Coronary heart disease Home Medications ?Medication ?Instructions ?Recorded ?Last Taken ?Type Handicap Placard #1 ea 02/14/21 Unknown Rx hydrochlorothiazide 25 mg tablet 25 mg PO QAM #90 tabs 01/23/22 Unknown Rx losartan 25 mg tablet 25 mg PO DAILY #90 tabs 07/09/22 Unknown Rx apixaban 5 mg tablet (Eliquis) 2.5 mg PO DAILY 12/27/23 Unknown History levetiracetam 500 mg tablet 250 mg PO DAILY 12/27/23 Unknown History potassium chloride 10 mEq 10 meq PO DAILY 7 days #7 caps 12/27/23 Unknown Rx capsule,extended release Allergy/AdvReac Type Severity Reaction Status Date / Time No Known Allergies Allergy Verified 12/27/23 03:36 Family History Mother CVA (cerebral vascular accident) Hypertension Father CVA (cerebral vascular accident) Surgical History History of prostate surgery History of shoulder surgery H/O aortic valve replacement Social History Smoking Status: Never smoker alcohol intake: current alcohol intake frequency: holidays/special occasions only Alcohol type: wine substance use type: does not use what type of physical activity do you participate in: walking frequency: daily ROS ROS ED Constitutional Constitutional ED: Denies chills or fever(s) Eyes Eyes: Denies blurry vision or change in vision ENT ENT ED: Denies sore throat Cardiovascular Cardiovascular: Reports chest pain and palpitations; Denies racing heartbeat Respiratory/Chest Respiratory/Chest: Denies cough or dyspnea Gastrointestinal Gastrointestinal: Denies abdominal pain, diarrhea, nausea or vomiting Genitourinary Genitourinary ED: Denies dysuria Musculoskeletal Musculoskeletal: Denies myalgias Integumentary Denies rash Neurologic Neurologic: Denies headache(s) or weakness Hematologic/Lymphatic Hematologic/Lymphatic: Reports easy bleeding and easy bruising EXAM Physical Exam Const Vital Signs: 12/27/23 03:34 12/27/23 03:34 12/27/23 04:34 Temperature 97.5 F L Temperature Source Temporal Pulse Rate 78 67 Respiratory Rate 16 16 Respiratory Effort Normal Non-Labored Blood Pressure 146/95 H 121/77 H Blood Pressure Mean 112 91 Pulse Ox 98 Oxygen Delivery Method Room Air Room Air 12/27/23 05:00 12/27/23 05:23 Temperature 97.6 F L Temperature Source Pulse Rate 71 65 Respiratory Rate 16 22 H Respiratory Effort Blood Pressure 119/64 120/75 Blood Pressure Mean 82 90 Pulse Ox 96 96 Oxygen Delivery Method Room Air Positive well nourished and well developed General Appearance ED: well developed; Negative for pallor HEENT HEENT Narrative: Normocephalic atraumatic Eyes PERRL and EOMs intact bilaterally General Eye ED: Negative for pale conjunctiva or scleral icterus Neck supple and no JVD Chest Wall palpation of chest normal Resp normal respiratory effort and clear to auscultation bilaterally Cardio regular rate Rate: other Other Details: Irregularly irregular rhythm consistent with atrial fibrillation but regular rate Radial and carotid pulses are equal and symmetric GI normal to inspection, nondistended, normoactive bowel sounds, non-tender, non- distended and no masses Auscultation: normoactive bowel sounds Palpation: soft Extremity normal to inspection Neuro oriented x3, CN's II-XII intact bilaterally and no sensory deficits noted Sensorium / Orientation: alert Motor Exam: strength 5/5 throughout Psych mental status grossly normal Skin no rashes or lesions noted and no wounds General Skin Exam: Negative for jaundice or pallor MDM MDM MDM Narrative Medical decision making narrative: Patient arrived to the ER slightly hypertensive but otherwise with stable vitals. EKG revealed rate controlled atrial fibrillation which patient states he does not have a history of but he is anticoagulated on Eliquis. His history of 1 to 2 seconds duration sharp left-sided chest pain without radiation or systemic symptoms of nausea vomiting diaphoresis shortness of breath do not correlate with acute coronary syndrome or pulmonary embolus. I have low concern for PE as he is on Eliquis and has been on it for multiple years and takes it as directed. In order to ensure that the A-fib was not due to a lab abnormality such as acute blood loss anemia acute kidney injury severe electrolyte abnormalities such as hypokalemia or hypomagnesemia and also in order to ensure abnormal presentation for acute coronary syndrome basic labs were obtained. Patient's potassium is slightly low at 3.2 but this should not be clinically significant to lead to new onset atrial fibrillation. He does not have signs of acute kidney injury or acute blood loss anemia. His troponin is normal at 45. I discussed with patient waiting in the hospital to obtain a delta troponin but the patient is pain-free his vitals are stable his rate is controlled and he is anticoagulated and he states that he feels very normal at this time and as his initial workup is negative he does not want to stay in the hospital any longer. Therefore he will be discharged at this time placed on a short 1 week course of potassium supplementation to bring this into a normal range and will follow-up with his information officer for further evaluation regarding his atrial fibrillation and intermittent chest discomfort. History & Record Review Discussion w/independent historian: Patient and Significant other Lab Data Attestation: I reviewed the patient's lab results. Labs: Laboratory Results - last 24 hr 12/27/23 03:41 WBC 8.0 RBC 4.87 Hgb 14.2 Hct 43.1 MCV 88.5 MCH 29.2 MCHC 32.9 RDW Std Deviation 45.7 H RDW Coeff of Cristhian 14.2 Plt Count 160 MPV 10.3 Immature Gran % (Auto) 0.500 Neut % (Auto) 59.8 Lymph % (Auto) 21.9 Limestone % (Auto) 10.4 H Eos % (Auto) 6.7 H Baso % (Auto) 0.7 Absolute Neuts (auto) 4.8 Absolute Lymphs (auto) 1.76 Nucleated RBC % 0 Sodium 139 Potassium 3.2 L Chloride 105 Carbon Dioxide 26.0 Anion Gap 8 BUN 26 H Creatinine 1.43 H Estim Creat Clear Calc 36.83 Est GFR (MDRD) Af Amer 60 Est GFR (MDRD) Non-Af 50 L BUN/Creatinine Ratio 18.2 Glucose 109 H Calcium 9.1 Magnesium 1.8 Troponin I High Sens 45 TSH 3.120 Radiography Diagnostic Testing: Clinical Impression(s) from Imaging Studies Chest X-Ray 12/27/23 04:13 IMPRESSION: No radiographic evidence of acute cardiopulmonary disease. Electronically Signed: Lisa Munoz MD at 5:33 EDT Reading Location ID and State: [address] [place] [address] , Service support , Chest x-ray as interpreted by the emergency medicine physician reveals no acute infiltrate pneumothorax or pleural effusion Discharge Plan Triage Chief Complaint: Palpitations ED Provider: John Flores Dx/Rx/DC Orders Clinical Impression: Atrial fibrillation, Acute hypokalemia, BPH (benign prostatic hyperplasia), Hypertension, Current use of long term care social worker anticoagulation Instructions: AFib Dc, ED Hypokalemia Prescriptions: New potassium chloride 10 mEq capsule, extended release 10 meq PO DAILY 7 Days Qty: 7 0RF No Action levetiracetam 500 mg tablet 250 mg PO DAILY Eliquis 5 mg tablet 2.5 mg PO DAILY (DME) Handicap Placard See Rx Instructions .ROUTE .MEDSUPPLY Qty: 1 0RF Rx Instructions: As directed, length of time 3 years hydrochlorothiazide 25 mg tablet 25 mg PO QAM Qty: 90 0RF losartan 25 mg tablet 25 mg PO DAILY Qty: 90 0RF Primary Care Provider: Cortney Villafuerte Referrals: Cortney Villafuerte, DENSITOMETER READER-C [Primary Care Provider] - Activity Restrictions/Additional Instructions: Please continue all of your home medication as directed by your doctor. Add the 7-day treatment of potassium pills as your potassium value was slightly low on today's workup. Follow-up with your heart doctor for repeat evaluation and return to the ER should you have any further concerns Print Language: [place] Disposition Disposition: Home, Self Care Discharge Date/Time: 12/27/23 05:23
--- NOTE | 2023-12-27 05:17 | EKG12_ITS ---
Test Reason : PALP Blood Pressure : / mmHG Vent. Rate : 074 BPM Atrial Rate : 000 BPM P-R Int : 000 ms QRS Dur : 100 ms QT Int : 410 ms P-R-T Axes : 000 -58 087 degrees QTc Int : 455 ms Atrial fibrillation Left axis deviation Inferior infarct , age undetermined Anterolateral infarct , age undetermined Abnormal ECG Confirmed by Fransisco Davis ([id number]), newspaper editor managing MADHURI BARTON ([id number]) on 12/28/2023 10:56:11 AM Referred By: BREANNE Confirmed By:Fransisco Davis
[2023-12-27 05:23] VITALS: BP 120/75; PULSE 65; RESP 22; TEMP 36.4; O2SAT 96
== END 2023-12-27 05:23 | disposition home or self-care (01) ==
PROVIDERS: Emergency Provider Emergency Medicine; PCP Nurse Practitioner Family; Visit Provider Emergency Medicine
DX: I48.91 Unspecified atrial fibrillation (principal); I10 Essential (primary) hypertension; E87.6 Hypokalemia; I25.10 Atherosclerotic heart disease of native coronary artery without angina pectoris; Z79.01 Long term (current) use of anticoagulants; Z79.899 Other long term (current) drug therapy; Z86.718 Personal history of other venous thrombosis and embolism
CPT/HCPCS: 71046; 80048; 83735; 84443; 84484; 85025; 93005; 99283; A4216

== ENCOUNTER → 2024-12-22 | Outpatient (CLI) | payer MEDICARE, SELFPAY ==
--- OUTSIDE RECORDS SUMMARY | 2024-12-22 07:28 | XMS RPT_ITS | CCD ---
Author Organization [facility] Inform ion [facility] Care Team Providers Care Saw Offbearer Name Role Phone Omi Andres Unavailable Unavailable Bonnie Monteiro MD Unavailable [phone] SANTIAGO GRANT Referring Unava ilable Omi Andres Unavailable Unavailable Bonnie Monteiro MD Primary Care Provider [phone] Shimon Cota MD Unavailable Bonnie Monteiro MD Primary Care Provider [phone] Shimon Cota MD Unavailable Bonnie Monteiro MD Primary Care Provider [phone] Shimon Cota MD Unavailable ARNOLD Villafuerte Primary Care Provider [phone] Dr. Allen Crabtree Attending Provider Shimon Cota MD Unavailable Bonnie Monteiro MD Primary Care Provider [phone] SHIMON COTA Attending Unavailable SHIMON COTA Referring Unavailable OLEGHE, EFEWONGBE B Primary Care Unavailable SHIMON COTA Referring Unavailable OLEGHE, EFEWONGBE B Primary Care Unavailable OLEGHE, EFEWONGBE B Primary Care Unavailable SHIMON COTA Referring Unavailable John lFores Attending Unavailable Christo, Cortney Primary Care Unavailable Cortney Villafuerte Referring Unavailable Cortney Villafuerte Attending Unavailable Christo, Cortney Primary Care Unavailable Medications Current Medications Medication Drug Class(es) Dates Sig (Normalized) Sig (Original) apixaban 5 mg oral tablet (16 sources) Factor Xa Inhibitor Start: 07-28-2022 take 1 tablet by mouth twice daily Apixaban (Eliquis) 5 mg tablet Active 5 MG PO TWICE A DAY 180 July 27, 2022 11:00pm Start: 09-16-2021 take 1 tablet by tawnya th twice daily apixaban (ELIQUIS) 2.5 mg tab tab(s) Indications: Recurrent deep vein thrombosis (DVT) (HCC) , Post-thrombotic syndrome Take 1 tablet by mouth twice daily. 60 tablet 11 09/16/2021 Active Start: 06-19-2021 End: 09-16-2021 take 1 tablet by mouth twice daily Apixaban (Eliquis) 5 mg tablet Active 5 MG PO TWICE A DAY 180 July 27, 2022 11:00pm Comment on above: Take by mouth twice daily. Pt taking 5mg in AM and 2.5mg in PM Take 1 tablet by tawnya th twice daily. aspirin 81 mg delayed release oral tablet (18 sources) Nonsteroidal Anti-inflammatory Drug Start: 02-22-2020 take 81 mg by mouth once daily Aspirin Active 81 MG PO DAILY February 21, 2020 11:00pm Start: 11-13-2016 ASPIRIN EC 81 MG TBEC 1 po daily ASPIRIN [id number] Bonnie Monteiro MD Start: 02-26-2014 End: 04-06-2019 take 81 mg by mouth once daily Aspirin Discontinued 81 MG PO DAILY@0800 February 25, 2014 11:00pm April 06, 2019 8:33am Handicap Placard (2 sources) Start: 02-14-2021 Handicap Placard Active 0 .ROUTE .MEDSUPPLY February 13, 2021 11:00pm As directed, length of time 3 years hydroCHLOROthiazide 25 mg oral tablet (20 sources) Thiazide Diuretic Start: 04-17-2020 End: 08-28-2022 take 1 tablet by mouth once daily hydroCHLOROthiazide (HYDRODIURIL, ESIDRIX) 25 mg tablet Indications: Primary hypertension Take 1 tablet by mouth once daily. 90 tablet 3 08/28/2022 Active Start: 02-25-2020 take 12.5 mg by mout h once daily Hydrochlorothiazide Active 12.5 MG PO DAILY February 24, 2020 11:00pm Start: 12-31-2016 End: 02-22-2020 take 12.5 mg by mouth once daily Hydrochlorothiazide Discontinued 12.5 MG PO DAILY 180 May 05, 2019 2:34pm February 22, 2020 2:01pm Start: 11-13-2016 take 1 tablet by tawnya th once daily HYDROCHLOROTHIAZIDE 12.5 MG TABS 1 po daily HYDROCHLOROTHIAZIDE [id number] Bonnie Monteiro MD Comment on above: Take 1 tablet by tawnya th once daily. losartan potassium 25 mg oral tablet (20 sources) Angiotensin 2 Receptor Bertha Start: 3 End: take 1 tablet by mouth once daily losartan (COZAAR) 25 mg tablet Indications: Primary hypertension TAKE ONE TABLET BY MOUTH ONCE DAILY 120 tablet 03/21/2024 Active Start: 07-15-2021 End: 08-28-2022 losartan (COZAAR) 25 mg tabl et Indications: Primary hypertension Take 2 tablets by mouth once daily. Pt taking 1 and half tablets every day. 120 tablet 0 08/28/2022 08/28/2022 Discontinued (Adjust Sig - Block E-Cancel) Start: 04-17-2020 End: 07-09-2022 take 25 mg by mouth once daily Losartan Discontinued 2 5 MG PO DAILY April 24, 2022 12:52pm July 09, 2022 9:08am Comment on above: Take 2 tablets by mo uth once daily. Pt taking 1 and half tablets every day. Take 2 tablets by mo uth once daily. Take 1 tablet by tawnya th once daily. metoprolol tartrate 25 mg oral tablet (20 sources) beta-Adrenergic Bertha Start: 03-05-2020 End: 04-29-2021 take 12.5 mg by mouth once daily Metoprolol Tartrate Active 12.5 MG PO DAILY April 29, 2021 7:55pm Start: 06-02-2017 End: 03-05-2020 take 12.5 mg by mouth twice daily Metoprolol Tartrate Discontinued 12.5 MG PO TWICE A DAY April 06, 2019 8:34am March 05, 2020 2:30pm Start: 11-13-2016 take 1 tablet by tawnya th once daily in the morning, then take 0.5 tablet by mouth once daily METOPROLOL TARTRATE 25 MG TABS 1 po every morning , 1/2 tab po every night METOPROLOL TARTRATE [id number] Omi Antunez LACE PINNER-C perflutren lipid microsphere s 1.3 mL in NaCl (PF) 0.9% 10 mL injection (DEFINITY) (6 sources) Start: 04-15-2022 End: 07-15-2023 perflutren lipid microsphere s 1.3 mL in NaCl (PF) 0.9% 10 mL injection (DEFINITY) Start: 02-14-2021 End: 09-16-2021 perflutren lipid microsphere s 1.3 mL in NaCl (PF) 0.9% 10 mL injection (DEFINITY) Start: 02-14-2021 End: 05-16-2022 perflutren lipid microsphere s 1.3 mL in NaCl (PF) 0.9% 10 mL injection (DEFINITY) 125 ml sodium chloride 9 mg/ ml prefilled syringe (6 sources) Start: 02-14-2021 End: 07-15-2023 sodium chloride 0.9 % (flush ) 10 mL (BD POSIFLUSH) Completed/Discontinued Medications Medication Drug Class(es) Dates Sig (Normalized) Sig (Original) atenolol 50 mg oral tablet (4 sources) beta-Adrenergic Bertha Start: 02-13-2016 End: 06-02-2017 take 25 mg by mouth once daily Atenolol Discontinued 25 MG PO DAILY February 12, 2016 11:00pm June 02, 2017 9:18am Start: 02-26-2014 End: 06-02-2017 take 12.5 mg by mouth at bedtime Atenolol Discontinued 12.5 MG PO AT BEDTIME February 25, 2014 11:00pm June 02, 2017 10:13am finasteride 5 mg oral tablet (18 sources) 5-alpha Reductase Inhibitor Start: 11-13-2016 End: 04-06-2019 take 5 mg by mouth once daily Finasteride Discontinued 5 MG PO DAILY 90 November 24, 2018 3:56pm April 06, 2019 8:33am levETIRAcetam 500 mg oral tablet (20 sources) Start: 03-06-2020 End: 04-29-2022 take 250 mg by mouth twice daily Levetiracetam Discontinued 250 MG PO TWICE A DAY 60 April 29, 2021 7:55pm April 29, 2022 8:23am Start: 02-25-2020 End: 03-06-2020 take 250 mg by mouth once daily Levetiracetam Discontinued 250 MG PO DAILY February 24, 2020 11:00pm March 06, 2020 1:18pm Start: 04-06-2019 End: 02-22-2020 Levetiracetam (Keppra) 500 m g tablet Discontinued 250 MG PO DAILY 90 November 23, 2019 8:10am February 22, 2020 2:01pm Start: 09-28-2018 End: 04-06-2019 levetiracetam (Keppra) Disco ntinued PO September 27, 2018 11:00pm April 06, 2019 8:34am Start: 06-19-2018 End: 09-21-2018 take 1 tablet by mouth twice daily levETIRAcetam (KEPPRA) 500 mg tablet Indications: Seizure (HCC) Take 1 tablet by mouth twice daily. 180 tablet 3 07/13/2018 Active Comment on above: Take 1 tablet by tawnya th twice daily. Drug Treatment Unknown - unknown (1 source) No information available. potassium chloride 10 meq extended release oral capsule (15 sources) Start: 06-23-2018 End: 04-06-2019 take 10 mEq by mouth once daily Potassium Chloride Discontinued 10 MEQ PO DAILY June 23, 2018 12:00am April 06, 2019 8:34am Start: 06-02-2017 End: 02-08-2018 Potassium Chloride (Klor-Con 10) 10 mEq tablet extended release Discontinued 10 MEQ PO TWICE A DAY June 02, 2017 12:00am February 08, 2018 1:11pm Start: 02-02-2017 End: 06-02-2017 take 10 mEq by mouth once daily Potassium Chloride Dis continued 10 MEQ PO DAILY February 01, 2017 11:00pm June 02, 2017 9:20am Start: 01-06-2017 take 1 tablet by tawnya th twice daily KLOR-CON 10 10 MEQ CR-TABS One tablet by mouth twice daily POTASSIUM CHLORIDE [id number] Omi Frank ConnorAntunez LACE PINNER-C Start: 01-06-2017 take 1 tablet by tawnya th twice daily KLOR-CON 10 10 MEQ CR-TABS One tablet by mouth twice daily POTASSIUM CHLORIDE [id number] Oim Frank Antunez LACE PINNER-C warfarin sodium 5 mg oral tablet (20 sources) Vitamin K Antagonist Start: 06-19-2021 End: 06-21-2021 take 5 mg by mouth once daily Warfarin Discontinued 5 MG PO DAILY June 19, 2021 12:00am June 21, 2021 8:36am Start: 06-19-2018 End: 09-28-2018 take 1 tablet by mouth once daily Warfarin Discontinued 1 TABLET PO DAILY June 19, 2018 12:00am September 28, 2018 7:04am Start: 06-19-2018 End: 09-21-2018 take 2.5 mg by mouth every other day Warfarin Discontinued 2.5 MG PO EVERY OTHER DAY June 23, 2018 10:44am September 20, 2018 11:06pm Start: 02-13-2016 End: 08-14-2017 take 5 mg by mouth once daily Warfarin Discontinued 5 MG PO DAILY June 02, 2017 10:15am August 14, 2017 7:25am Problems Active Problems Problem Classification Problem Date Documented Da te Episodic/Chronic Allergic reactions (10 sources) Atopic dermatitis; Translations: [Allergic contact dermatitis, unspecified cause] Onset: 01-06-2017 01-06-2017 Chronic Cardiac dysrhythmias (9 sources) Atrial fibrillation; Translations: [Unspecified atrial fibrillation] Onset: 07-12-2010 Resolved: 08-30-2022 08-30-2022 Chronic Coronary atherosclerosis and other heart disease (20 sources) Coronary arteriosclerosis; Translations: [Coronary atherosclerosis] Onset: 07-04-2010 11-13-2016 Chronic Disorders of lipid metabolism (14 sources) Hyperlipidemia; Translations: [Hyperlipidemia, unspecified] Onset: 07-04-2010 Chronic Epilepsy; convulsions (12 sources) Other generalized epilepsy and epileptic syndromes, not intractable, without status epilepticus; Translations: [Epilepsy] Onset: 07-13-2018 07-13-2018 Chronic Epilepsy; convulsions (2 sources) Seizure; Translations: [Unspecified convulsions] 02-25-2020 Episodic Essential hypertension (20 sources) Hypertensive disorder; Translations: [Essential hypertension] Onset: 08-08-2010 11-13-2016 Chronic Fluid and electrolyte disorders (12 sources) Hypokalemia; Translations: [Hypokalemia] Onset: 01-06-2017 01-06-2017 Episodic Heart valve disorders (20 sources) Aortic valve disorder; Translations: [Aortic valve stenosis] Onset: 02-21-2010 11-13-2016 Chronic Heart valve disorders (2 sources) Heart murmur; Translations: [Cardiac murmur, unspecified] 06-02-2017 Episodic Hyperplasia of prostate (16 sources) Benign prostatic hyperplasia; Translations: [Benign prostatic hyperplasia without lower urinary tract symptoms] Onset: 11-13-2016 11-13-2016 Chronic Other diseases of veins and lymphatics (1 source) Postthrombotic syndrome; Translations: [Postthrombotic syndrome without complications of unspecified extremity] Chronic Other lower respiratory disease (1 source) Dyspnea; Translations: [Shortness of breath] Episodic Other nervous system disorders (2 sources) H/O: epilepsy; Translations: [Personal history of other diseases of the nervous system and sense organs] 02-26-2020 Episodic Other non-epithelial cancer of skin (2 sources) History of malignant basal cell neoplasm of skin; Translations: [Personal history of other malignant neoplasm of skin] 02-25-2020 Episodic Wendy-; endo-; and myocarditis; cardiomyopathy (except that caused by tuberculosis or sexually transmitted disease) (2 sources) Heart valve disorder; Translations: [Endocarditis, valve unspecified] 06-02-2017 Chronic Phlebitis; thrombophlebitis and thromboembolism (20 sources) Acute embolism and thrombosis of unspecified popliteal vein; Translations: [Deep venous thrombosis] Onset: 11-17-2016 01-06-2017 Episodic Residual codes; unclassified (2 sources) Obstructive sleep apnea syndrome; Translations: [Obstructive sleep apnea (adult) (pediatric)] 02-26-2020 Chronic Residual codes; unclassified (2 sources) Noncompliance with medication regimen; Translations: [Noncompliance with medication regimen] 02-26-2020 Episodic Unclassified (1 source) No current problems or disability 11-13-2016 Unclassified (1 source) Other persistent atrial fibrillation; Translations: [Persistent atrial fibrillation (HCC)] Onset: 11-28-2024 Past or Other Problems Problem Classification Problem Date Documented Date Episodic/Chronic Cardiac dysrhythmias (1 source) Palpitations; Translations: [Palpitations] Onset: 01-20-2024 Episodic Coagulation and hemorrhagic disorders (13 sources) Thrombocytopenic disorder; Translations: [Thrombocytopenia, unspecified] Onset: 07-05-2010 Resolved: 07-12-2010 01-06-2017 Chronic Diabetes mellitus without complication (3 sources) Metabolic stress hyperglycemia; Translations: [Hyperglycemia, unspecified] Onset: 07-03-2010 Resolved: 07-07-2010 Episodic Other aftercare (5 sources) Patient encounter status; Translations: [Encounter for therapeutic drug level monitoring] Onset: 06-28-2010 Resolved: 06-01-2012 Episodic Other circulatory disease (3 sources) Low blood pressure; Translations: [Hypotension, unspecified] Onset: 07-03-2010 Resolved: 07-04-2010 Episodic Wendy-; endo-; and myocarditis; cardiomyopathy (except that caused by tuberculosis or sexually transmitted disease) (3 sources) Pericardial effusion; Translations: [Pericardial effusion] Onset: 07-12-2010 Resolved: 06-01-2012 04-29-2021 Episodic Pleurisy; pneumothorax; pulmonary collapse (6 sources) Atelectasis; Translations: [Atelectasis] Onset: 07-03-2010 Resolved: 06-01-2012 04-29-2021 Episodic Pulmonary heart disease (8 sources) Pulmonary embolism; Translations: [Other pulmonary embolism without acute cor pulmonale] Onset: 07-12-2010 Resolved: 08-30-2022 08-30-2022 Episodic Unclassified (10 sources) Encounter for screening for diabetes mellitus; Translations: [Encounter for screening for diabetes mellitus] Onset: 01-06-2017 01-06-2017 Episodic Unclassified (3 sources) SUMMARY Onset: 07-03-2010 Resolved: 05-30-2013 05-30-2013 Results Test Name Value Interpretation Reference Range Facility [facility] 11-28-2024 OV Office Visit (MIGUELANGEL) ---- LEEANN MACIAS ([id number]) 1935 M Date Time Provider Department 11/28/24 11:00 AM SHIMON COTA During your visit today, we recorded the following information about you: Pulse Blood pressure Weight Height 64/minute 144/85 75.3 kg 1.727 m Shimon Cota MD 11/28/2024 2:21 PM Signed [facility] Department of Cardiovascular Medicine SECTION OF CARDIOVASCULAR IMAGING OUTPATIENT VISIT DATE 11/28/2024 OUTPATIENT VISIT TYPE ESTABLISHED PRIMARY CARE PHYSICIAN: Bonnie Monteiro ([facility]) [address] [facility] [place] [address] REFERRING PHYSICIAN: Shemar Cota [address] [facility] [address] CHIEF COMPLAINT: Follow up HISTORY OF PRESENT ILLNESS: Mr. Macias is a 89 year old male who presents today for follow-up visit . Since his last visit, he states that he is doing well. He is taking half of the dose of eliquis once daily. He denies chest pain, shortness of breath, orthopnea, cough, edema, palpitations, PND, lightheadedness or syncope. PAST CARDIAC HISTORY: He has been seen in the past for AVR. She has been on eliquis for DVT. 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 Drug use: No FAMILY HISTORY Problem Relation Age of Onset Stroke Mother in her 80's Coronary Artery Disease Mother Heart Father at age 80 - [place] Coronary Artery Disease Father None Brother Living - age 76 Heart Brother Living - age 83 - h/o MV repair and CABG Diabetes Brother Living - age 62 Cancer Sister at age 70 - oral cancer other (Unknown) Sister at age 72 ALLERGIES: ALLERGIES No Known Allergies MEDICATIONS: losartan (COZAAR) 25 mg tablet TAKE ONE TABLET BY MOUTH ONCE DAILY hydroCHLOROthiazide (HYDRODIURIL, ESIDRIX) 25 mg tablet Take 1 tablet by mouth once daily. apixaban (ELIQUIS) 2.5 mg tab tab(s) Take 1 tablet by mouth twice daily. levETIRAcetam (KEPPRA) 500 mg tablet Take 1 tablet by mouth twice daily. No data to display REVIEW OF SYSTEMS: PHYSICAL EXAMINATION: BP 144/85 Pulse 64 Ht 172.7 cm (5' 8) Wt 75.3 kg (166 lb) SpO2 98% BMI 25.24 kg/m? General: Well appearing, in no acute distress, speaking in complete sentences. Neck: No jugular venous distention, no carotid bruits, carotids have a normal upstroke, no palpable thyromegaly. Lungs: Clear to auscultation bilaterally, no wheezing or rhonchi. Heart: irregular rhythm, soft ejection murmur. Abdomen: Soft, nontender, bowel sounds normal, no palpable organomegaly, no bruits. Extremities: No peripheral edema . Grade 2/4 distal pulses bilaterally. Neuro: Oriented to person, place and time, alert, cooperative, gait coordinated. CARDIOVASCULAR MEDICINE TESTING: I have personally reviewed the Electrocardiogram and Echocardiogram. Last ECHO Result Conclusion ECHO Collected: 11/28/2024 8:39 AM (Final result) Impression: CONCLUSIONS: - Exam indication: Routine surveillance of prosthetic valve (>3yrs) - The left ventricle is normal in size. There is concentric left ventricular hypertrophy. Left ventricular systolic function is normal. EF = 57 ? 5% (2D biplane) - The right ventricle is normal in size. Right ventricular systolic function is normal. - The left atrial cavity is mildly dilated. - There is moderate (2+) tricuspid valve regurgitation. 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 There is trace (trace - 1+) aortic valve regurgitation. The peak gradient is 48 mmHg, the mean gradient is 19 mmHg and the dimensionless valve index is 0.33. Prior peak/mean AV gradients 44/26 mmHg. - Estimated right ventricular systolic pressure is likely underestimated due to a weak or incomplete tricuspid regurgitation signal and is, at least, 33 mmHg consistent with normal pulmonary artery pressures. Estimated right atrial pressure is 3 mmHg based on IVC assessment. BP written is taken from clinic visit- similar to prior study. - Exam was compared with the prior echocardiographic exam performed on 08/03/2023. More TR seen on today's exam. Stable AV Gradients. Electronically (more content not included)... Normal [facility] ECHOon 11-28-2024 Echocardiography Echocardiography Report: Transthoracic Echo Main [place] DELFINO-2 Date of service: 11/28/2024 8:39:15 AM MAKER Ordering physician: SHIMON COTA Exam indication: Routine surveillance of prosthetic valve (>3yrs) Technologist: Susmha Londono Interpreting physician: Nicola Burgess MD PATIENT: Name: MR. LEEANN MACIAS : 1935 Age: 89 years Gender: M History of valvular heart disease. Previous cardiovascular interventions: Aortic valve replacement (2010) Primary rhythm: sinus. Height: 170.50 cm BSA: 1.94 m Weight: 79.38 kg BMI: 27.3 kg/m Heart rate 70 bpm Blood pressure 145/85 mmHg Color Doppler was utilized to interrogate the cardiac valves assessed and spectral Doppler was utilized to determine the flow velocities and pressure gradients reported in this exam. Myocardial strain analysis was performed in this exam to aid in the assessment of cardiac function. MEASUREMENTS: Value Indexed Normal Max aortic dimension 3.0 cm Ao < 3.8 Left atrial volume 67 ml (Celaya's) 35 ml/m Sacha <= 34 LV ID (diastole) 3.7 cm (2D) 1.91 cm/m LV ID (systole) 2.5 cm (2D) 1.29 cm/m IVS, leaflet tips 1.2 cm (2D) Posterior wall thickness 1.5 cm (2D) Left ventricular mass 177 g (2D) 91 g/m Global peak long strain -13.9 % LV stroke volume 43 ml (2D biplane) LV end diastolic volume 75 ml (2D biplane) 38.9 ml/m 34<=EDVi<75 LV end systolic volume 33 ml (2D biplane) 16.8 ml/m Ejection Fraction 57 % (2D biplane) EF > 52 FINDINGS: LEFT VENTRICLE The left ventricle is normal in size. There is concentric left ventricular hypertrophy. Left ventricular systolic function is normal. Global LV myocardial strain is abnormal. Left ventricular diastolic function was not evaluated due to E/A fusion. Wall Motion: All scored segments are normal. RIGHT VENTRICLE The right ventricle is normal in size. Right ventricular systolic function is normal. RV systolic tissue Doppler velocity is 7.1 cm/s. Tricuspid annular displacement is 0.7 cm. Estimated right ventricular systolic pressure is likely underestimated due to a weak or incomplete tricuspid regurgitation signal and is, at least, 33 mmHg consistent with normal pulmonary artery pressures. Estimated right atrial pressure is 3 mmHg based on IVC assessment. LEFT ATRIUM The left atrial cavity is mildly dilated. Pulmonary Veins: The pulmonary venous pattern showed blunted systolic flow. RIGHT ATRIUM The right atrial cavity is normal in size. Inferior Vena Cava: The inferior vena cava appears normal measuring 1.7 cm. The vessel decreases greater than 50 percent with inspiration. MITRAL VALVE There is mild (1+) mitral valve regurgitation. There is mild thickening. TRICUSPID VALVE There is moderate (2+) tricuspid valve regurgitation. There is no thickening. AORTIC VALVE Eh-Cleveland prosthetic valve size #23. There is trace (trace - 1+) aortic valve regurgitation. The peak gradient is 48 mmHg (peak velocity = 347.9 cm/s). The mean gradient is 19 mmHg. The LVOT mean velocity is 63.4 cm/s. The aortic VTI is 58.5 cm. The mean velocity in the aortic valve is 181.9 cm/s. The dimensionless valve index is 0.33. PULMONIC VALVE There is trace (trace - 1+) pulmonic valve regurgitation. There is no thickening. AORTA The visualized aorta is normal in size. Measurements - Mid ascending aorta 2.8 cm. Distal ascending aorta 3.0 cm. INTERATRIAL SEPTUM There is no evidence of intracardiac shunting as detected by Doppler. INTERVENTRICULAR SEPTUM There is no flow through the interventricular septum as detected by Doppler. CONCLUSIONS: - Exam indication: Routine surveillance of prosthetic valve (>3yrs) - The left ventricle is normal in size. There is concentric left ventricular hypertrophy. Left ventricular systolic function is normal. EF = 57 5% (2D biplane) - The right ventricle is normal in size. Right ventricular systolic function is normal. - The left atrial cavity is mildly dilated. - There is moderate (2+) tricuspid valve regurgitation. 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 There is trace (trace - 1+) aortic valve regurgitation. The peak gradient is 48 mmHg, the mean gradient is 19 mmHg and the dimensionless valve index is 0.33. Prior peak/mean AV gradients 44/26 mmHg. - Estimated right ventricular systolic pressure is likely underestimated due to a weak or incomplete tricuspid regurgitation signal and is, at least, 33 mmHg consistent with normal pulmonary artery pressures. Estimated right atrial pressure is 3 mmHg based on IVC assessment. BP written is taken from clinic visit- similar to prior study. - Exam was compared with the prior CC echocardiographic exam performed on 08/03/2023. More TR seen on today's exam. Stable AV Gradients. * * * Final * * * CC [employer]i (more content not included)... Normal [facility] 12 Lead EKGon 12-27-2023 12 Lead EKG [facility] Cardi[facility] [address] [place] [address] 12 Lead EKG 12/27/23 0340 MR#: [id number] Acct: [id number] Name: LEEANN MACIAS Rep #: [id number] : 1935 88 From: Fransisco Davis MD Attending Dr: Status: DEP ER Ordering Dr: John Flores DO Date: 12/27/23 Location: ED Sex: M C Admitted: Test Reason : PALP Blood Pressure : / mmHG Vent. Rate : 074 BPM Atrial Rate : 000 BPM P-R Int : 000 ms QRS Dur : 100 ms QT Int : 410 ms P-R-T Axes : 000 -58 087 degrees QTc Int : 455 ms Atrial fibrillation Left axis deviation Inferior infarct , age undetermined Anterolateral infarct , age undetermined Abnormal ECG Confirmed by Fransisco Davis ([id number]), non linear editor SUSHMA BARTON ([id number]) on 12/28/2023 10:56:11 AM Referred By: BREANNE Confirmed By:Fransisco Davis 12/28/23 1056 Date Fransisco Davis MD CC: ARNOLD Villafuerte; John Flores DO Signed Normal [facility] Basic Metabolic Profile (BMP )on 12-27-2023 BUN/CRE 18.2 RATIO Normal 10-20 [facility] Comment on above: Order Comment: 'TROP ' Serial specimen #1, #2 or #3: 1 Performed By: #### L 100.0100, L501.5200, L501.4020, L501.9520, L500.2500 #### [facility] [address] [place], [address] CA,Total 9.1 mg/dL Normal 8.5-10.1 [facility] Comment on above: Order Comment: 'TROP ' Serial specimen #1, #2 or #3: 1 Performed By: #### L 100.0100, L501.5200, L501.4020, L501.9520, L500.2500 #### [facility] [address] [place], [address] Chloride [Moles/Vol] 105 mmol/L Normal 98-107 [facility] Comment on above: Order Comment: 'TROP ' Serial specimen #1, #2 or #3: 1 Performed By: #### L 100.0100, L501.5200, L501.4020, L501.9520, L500.2500 #### [facility] [address] [place], [address] CO2 [Moles/Vol] 26.0 mmol/L Normal 21.0-32.0 [facility] Comment on above: Order Comment: 'TROP ' Serial specimen #1, #2 or #3: 1 Performed By: #### L 100.0100, L501.5200, L501.4020, L501.9520, L500.2500 #### [facility] [address] [place], [address] Creatinine [Mass/Vol] 1.43 mg/dL High 0.70-1.30 [facility] Comment on above: Order Comment: 'TROP ' Serial specimen #1, #2 or #3: 1 Result Comment: The validity of the calculated GFR GFRAA in patients over 70 years has not been determined. Clinical correlation is essential. Performed By: #### L 100.0100, L501.5200, L501.4020, L501.9520, L500.2500 #### [facility] [address] [place], [address] ECRCL 36.83 ml/min Normal [facility] Comment on above: Order Comment: 'TROP ' Serial specimen #1, #2 or #3: 1 Performed By: #### L 100.0100, L501.5200, L501.4020, L501.9520, L500.2500 #### [facility] [address] [place], [address] EST GFR - AA 60 mL/min Normal >60 [facility] Comment on above: Order Comment: 'TROP ' Serial specimen #1, #2 or #3: 1 Result Comment: Afri can Lao GFR Calc Performed By: #### L 100.0100, L501.5200, L501.4020, L501.9520, L500.2500 #### [facility] [address] [place], [address] GAP 8 Normal 5-15 [facility] Comment on above: Order Comment: 'TROP ' Serial specimen #1, #2 or #3: 1 Performed By: #### L 100.0100, L501.5200, L501.4020, L501.9520, L500.2500 #### [facility] [address] [place], [address] GFR/1.73 sq M.predicted among non-blacks MDRD (S/P/Bld) [Vol rate/Area] 50 mL/min/{1.73_m2} Low >60 [facility] Comment on above: Order Comment: 'TROP ' Serial specimen #1, #2 or #3: 1 Result Comment: Non- GFR Calc Performed By: #### L 100.0100, L501.5200, L501.4020, L501.9520, L500.2500 #### [facility] [address] [place], [address] Glucose [Mass/Vol] 109 mg/dL High 74-106 [facility] Comment on above: Order Comment: 'TROP ' Serial specimen #1, #2 or #3: 1 Result Comment: Fast ing Glucose result from 100 to 125 mg/dL suggests IMPAIRED HOMEOSTASIS per A.D.A. criteria. Performed By: #### L 100.0100, L501.5200, L501.4020, L501.9520, L500.2500 #### [facility] [address] [place], [address] Potassium [Moles/Vol] 3.2 mmol/L Low 3.5-5.1 [facility] Comment on above: Order Comment: 'TROP ' Serial specimen #1, #2 or #3: 1 Performed By: #### L 100.0100, L501.5200, L501.4020, L501.9520, L500.2500 #### [facility] [address] [place], [address] Sodium [Moles/Vol] 139 mmol/L Normal 136-145 [facility] Comment on above: Order Comment: 'TROP ' Serial specimen #1, #2 or #3: 1 Performed By: #### L 100.0100, L501.5200, L501.4020, L501.9520, L500.2500 #### [facility] [address] [place], [address] Urea nitrogen [Mass/Vol] 26 mg/dL High 7-18 [facility] Comment on above: Order Comment: 'TROP ' Serial specimen #1, #2 or #3: 1 Performed By: #### L 100.0100, L501.5200, L501.4020, L501.9520, L500.2500 #### [facility] [address] [place], [address] CBC W/Diff, Automatedon 08-2 Absolute Lymph 1.76 X10 3/uL Normal 0.83-4.51 [facility] Comment on above: Performed By: #### L 100.0100, L501.5200, L501.4020, L501.9520, L500.2500 #### [facility] [address] [place], [address] Absolute Neut 4.8 X10 3/uL Normal 2.0-7.7 [facility] Comment on above: Performed By: #### L 100.0100, L501.5200, L501.4020, L501.9520, L500.2500 #### [facility] [address] [place], [address] Basophils/100 WBC (Bld) 0.7 % Normal 0-1 [facility] Comment on above: Performed By: #### L 100.0100, L501.5200, L501.4020, L501.9520, L500.2500 #### [facility] [address] [place], [address] Eosinophils/100 WBC (Bld) 6.7 % High 0-5 [facility] Comment on above: Performed By: #### L 100.0100, L501.5200, L501.4020, L501.9520, L500.2500 #### [facility] [address] [place], [address] Erythrocyte distribution width (RBC) [Ratio] 14.2 % Normal 11.6-14.6 [facility] Comment on above: Performed By: #### L 100.0100, L501.5200, L501.4020, L501.9520, L500.2500 #### [facility] [address] [place], [address] Hematocrit (Bld) [Volume fraction] 43.1 % Normal 40-54 [facility] Comment on above: Performed By: #### L 100.0100, L501.5200, L501.4020, L501.9520, L500.2500 #### [facility] [address] [place], [address] Hemoglobin (Bld) [Mass/Vol] 14.2 g/dL Normal 13.0-16.5 [facility] Comment on above: Performed By: #### L 100.0100, L501.5200, L501.4020, L501.9520, L500.2500 #### [facility] [address] [place], [address] IG% 0.500 Normal 0.0-0.9 [facility] Comment on above: Result Comment: IG% - Immature Granulocytes (promyelocytes, myelocytes and metamyelocytes) > 1% indicates that a LEFT SHIFT is Present. Performed By: #### L 100.0100, L501.5200, L501.4020, L501.9520, L500.2500 #### [facility] [address] [place], [address] Lymphocytes/100 WBC (Bld) 21.9 % Normal 19-41 [facility] Comment on above: Performed By: #### L 100.0100, L501.5200, L501.4020, L501.9520, L500.2500 #### [facility] [address] [place], [address] MCH (RBC) [Entitic mass] 29.2 pg Normal 27.0-32.0 [facility] Comment on above: Performed By: #### L 100.0100, L501.5200, L501.4020, L501.9520, L500.2500 #### [facility] [address] [place], [address] MCHC (RBC) [Mass/Vol] 32.9 g/dL Normal 32-36 [facility] Comment on above: Performed By: #### L 100.0100, L501.5200, L501.4020, L501.9520, L500.2500 #### [facility] [address] [place], [address] MCV (RBC) [Entitic vol] 88.5 fL Normal 80-94 [facility] Comment on above: Performed By: #### L 100.0100, L501.5200, L501.4020, L501.9520, L500.2500 #### [facility] [address] [place], [address] Monocytes/100 WBC (Bld) 10.4 % High 0-10 [facility] Comment on above: Performed By: #### L 100.0100, L501.5200, L501.4020, L501.9520, L500.2500 #### [facility] [address] [place], [address] Neutrophils/100 WBC (Bld) 59.8 % Normal 47-70 [facility] Comment on above: Performed By: #### L 100.0100, L501.5200, L501.4020, L501.9520, L500.2500 #### [facility] [address] [place], [address] Nucleated RBC (Bld) [#/Vol] 0 10*3/uL Normal 0-5 [facility] Comment on above: Performed By: #### L 100.0100, L501.5200, L501.4020, L501.9520, L500.2500 #### [facility] [address] [place], [address] Platelet mean volume (Bld) [Entitic vol] 10.3 fL Normal 6.2-12.0 [facility] Comment on above: Performed By: #### L 100.0100, L501.5200, L501.4020, L501.9520, L500.2500 #### [facility] [address] [place], [address] Platelets (Bld) [#/Vol] 160 10*3/uL Normal 150-450 [facility] Comment on above: Performed By: #### L 100.0100, L501.5200, L501.4020, L501.9520, L500.2500 #### [facility] [address] [place], [address] RBC (Bld) [#/Vol] 4.87 10*6/uL Normal 4.6-6.2 [facility] Comment on above: Performed By: #### L 100.0100, L501.5200, L501.4020, L501.9520, L500.2500 #### [facility] [address] [place], [address] RDW SD 45.7 fl High 35.1-43.9 [facility] Comment on above: Performed By: #### L 100.0100, L501.5200, L501.4020, L501.9520, L500.2500 #### [facility] [address] [place], [address] WBC (Bld) [#/Vol] 8.0 10*3/uL Normal 4.4-11.0 [facility] Comment on above: Performed By: #### L 100.0100, L501.5200, L501.4020, L501.9520, L500.2500 #### [facility] [address] [place], [address] Chest PA and Lateralon 12-26 Chest PA and Lateral [facility] Imaging Services [address] [place] [address] Chest PA and Lateral MR#: [id number] Acct: [id number] Name: LEEANN MACIAS Rep #: [id number] : 1935 M 88 From: Lisa Munoz MD PCP: ARNOLD Frye Status: DEP ER Study: Chest PA and Lateral Date of Exam: 12/27/23 Exam# [id number] Ordering Dr: John Flores DO -[id number] STUDY: X-RAY CHEST REASON FOR EXAM: Male, 88 years old patient with chest pain. TECHNIQUE: PA and lateral views of the chest. COMPARISON: October 09, 2017. FINDINGS: Cardiac monitoring leads are present. The patient has had a sternotomy. The lungs are clear and expanded. There is no demonstrated pleural abnormality. Cardiac valvular prosthesis is present. Normal mediastinum and vy. Normal visualized pulmonary arteries. There is atherosclerotic calcification of the aortic arch with tortuosity. 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 Normal visualized ribs, clavicles, and shoulders. There is no demonstrated abnormality of the visualized soft tissue structures of the upper abdomen. RAD/Chest PA and Lateral IMPRESSION: No radiographic evidence of acute cardiopulmonary disease. Electronically Signed: Lisa Munoz MD at 5:33 EDT , CC: ARNOLD Villafuerte; John Flores DO Head Machinist: Signed Normal [facility] Emergency Department Summary on 12-27-2023 Emergency Department Summary [facility] Medical Records Department [address] [place] [id number] Emergency Department Summary 12/27/23 MR#: [id number] Acct: [id number] Name: LEEANN MACIAS Rep #: [id number] : 1935 88 From: John Flores DO PCP: ARNOLD Frye Status:DEP ER Location: ED HPI History of Present Illness Chief Complaint: Palpitations Informant: patient and spouse/S.O. Narrative Narrative: Patient is an 88-year-old male with past medical history of hypertension DVT on Eliquis as well as CAD. He states over the last week or so he will have bouts where he feels a very quick 1 to 2- second duration of sharp left-sided chest pain. He states that the pain does not radiate and does not cause nausea vomiting diaphoresis or shortness of breath. He states it only last 1 to 2 seconds and resolve. He reports he has not seen his doctor for this but based on his history had concern that this may be a blocked artery and therefore comes in for evaluation [facility] Medical History (Updated 12/27/23 @ 23:[address] John Flores, DO) Seizure History of basal cell carcinoma Aortic valve disease History of deep venous thrombosis Hypokalemia Heart murmur Heart valve problem Hypertension Coronary heart disease Home Medications ???Medication ???Instructions ???Recorded ???Last Taken ???Type Handicap Placard #1 ea 02/14/21 Unknown Rx hydrochlorothiazide 25 mg tablet 25 mg PO QAM #90 tabs 01/23/22 Unknown Rx losartan 25 mg tablet 25 mg PO DAILY #90 tabs 07/09/22 Unknown Rx apixaban 5 mg tablet (Eliquis) 2.5 mg PO DAILY 12/27/23 Unknown History levetiracetam 500 mg tablet 250 mg PO DAILY 12/27/23 Unknown History potassium chloride 10 mEq 10 meq PO DAILY 7 days #7 caps 12/27/23 Unknown Rx capsule,extended release Allergy/AdvReac Type Severity Reaction Status Date / Time No Known Allergies Allergy Verified 12/27/23 03:36 Family History Mother CVA (cerebral vascular accident) Hypertension Father CVA (cerebral vascular accident) Surgical History History of prostate surgery History of shoulder surgery H/O aortic valve replacement Social History Smoking Status: Never smoker alcohol intake: current alcohol intake frequency: holidays/special occasions only Alcohol type: wine substance use type: does not use what type of physical activity do you participate in: walking frequency: daily ROS ROS ED Constitutional Constitutional ED: Denies chills or fever(s) Eyes Eyes: Denies blurry vision or change in vision ENT ENT ED: Denies sore throat Cardiovascular Cardiovascular: Reports chest pain and palpitations; Denies racing heartbeat Respiratory/Chest Respiratory/Chest: Denies cough or dyspnea Gastrointestinal Gastrointestinal: Denies abdominal pain, diarrhea, nausea or vomiting Genitourinary Genitourinary ED: Denies dysuria Musculoskeletal Musculoskeletal: Denies myalgias Integumentary Denies rash Neurologic Neurologic: Denies headache(s) or weakness Hematologic/Lymphat ic Hematologic/Lymphat ic: Reports easy bleeding and easy bruising EXAM Physical Exam Const Vital Signs: 12/27/23 03:34 12/27/23 03:34 12/27/23 04:34 Temperature 97.5 F L Temperature Source Temporal Pulse Rate 78 67 Respiratory Rate 16 16 Respiratory Effort Normal Non-Labored Blood Pressure 146/95 H 121/77 H Blood Pressure Mean 112 91 Pulse Ox 98 Oxygen Delivery Method Room Air Room Air 12/27/23 05:00 12/27/23 05:23 Temperature 97.6 F L Temperature Source Pulse Rate 71 65 Respiratory Rate 16 22 H Respiratory Effort Blood Pressure 119/64 120/75 Blood Pressure Mean 82 90 Pulse Ox 96 96 Oxygen Delivery Method Room Air Positive well nourished and well developed General Appearance ED: well developed; Negative for pallor HEENT HEENT Narrative: Normocephalic atraumatic Eyes PERRL and EOMs intact bilaterally General Eye ED: Negative for pale conjunctiva or scleral icterus Neck supple and no JVD Chest Wall palpation of chest normal Resp normal respiratory effort and clear to auscultation bilaterally Cardio regular rate Rate: other Other Details: Irregularly irregular rhythm consistent with atrial fibrillation but regular rate Radial and carotid pulses are equal and symmetric GI normal to inspection, nondistended, normoactive bowel sounds, non-tender, non-distended and no masses Auscultation: normoactive bowel sounds Palpation: soft Extremity normal to inspection Neuro oriented x3, CN's II-XII intact bilaterally and no sensory deficits noted Sensorium / Orientation: alert Motor Exam: strength 5/5 thro (more content not included)... Normal [facility] L501.4020on 12-27-2023 TROPONIN-I HS 45 pg/mL Normal 3.0-78.0 [facility] Comment on above: Order Comment: 'TROP ' Serial specimen #1, #2 or #3: 1 Result Comment: Plea se Note: New Test Units and Gender Specific Reference Ranges. For more information see Policy Stat Procedure Plover High Sensitivity Troponin (TNIH) and attachments. Performed By: #### L 100.0100, L501.5200, L501.4020, L501.9520, L500.2500 #### [facility] [address] [place], [address] Magnesiumon 12-27-2023 Magnesium [Mass/Vol] 1.8 mg/dL Normal 1.6-2.6 [facility] Comment on above: Order Comment: 'TROP ' Serial specimen #1, #2 or #3: 1 Performed By: #### L 100.0100, L501.5200, L501.4020, L501.9520, L500.2500 #### [facility] [address] [place], [address] Thyroid Stim Hormone (TSH)on 12-27-2023 TSH 3.120 uIU/mL Normal 0.358-3.740 [facility] Comment on above: Order Comment: 'TROP ' Serial specimen #1, #2 or #3: 1 Performed By: #### L 100.0100, L501.5200, L501.4020, L501.9520, L500.2500 #### [facility] [address] [place], [address] Absolute lymphocyte countOrd ered By: Cortney Villafuerte on 05-19-2023 Lymphocytes Auto (Unsp spec) [#/Vol] 1.72 10*3/uL 0.83-4.51 [facility] Automated lymphocyte count a s percentage of total leukocytesOrdered By: Cortney Villafuerte on 05-19-2023 Lymphocytes/100 WBC Auto (Unsp spec) 19.5 % 19-41 [facility] Basophil percentageOrdered B y: Cortney Villafuerte on 05-19-2023 Basophils/100 WBC (Bld) 0.7 % 0-1 [facility] Bilirubin [Mass/Vol] 0.60 mg/dL 0.20-1.00 [facility] Comment on above: For patients on eltr ombopag therapy, use of Dimension Plover TBIL is not recommended. Chloride [Moles/Vol] 101 mmol/L 98-107 [facility] Eosinophils/100 WBC (Bld) 5.0 % 0-5 [facility] Glucose [Mass/Vol] 86 mg/dL 74-106 [facility] Hemoglobin (Bld) [Mass/Vol] 15.2 g/dL 13.0-16.5 [facility] Monocytes/100 WBC (Bld) 9.2 % 0-10 [facility] Neutrophils (Bld) [#/Vol] 5.7 10*3/uL 2.0-7.7 [facility] Neutrophils/100 WBC (Bld) 65.1 % 47-70 [facility] Potassium [Moles/Vol] 4.2 mmol/L 3.5-5.1 [facility] Protein [Mass/Vol] 7.3 g/dL 6.4-8.2 [facility] Sodium [Moles/Vol] 137 mmol/L 136-145 [facility] WBC (Bld) [#/Vol] 8.8 10*3/uL 4.4-11.0 [facility] Determination of erythrocyte mean corpuscular volume (MCV)Ordered By: Cortney Villafuerte on 05-19-2023 MCV (RBC) [Entitic vol] 92.4 fL 80-94 [facility] Erythrocyte distribution wid th ratioOrdered By: Cortney Villafuerte on 05-19-2023 Erythrocyte distribution width (RBC) [Ratio] 13.6 % 11.6-14.6 [facility] Erythrocyte distribution wid th standard deviationOrdered By: Cortney Villafuerte on 05-19-2023 Erythrocyte distribution width (RBC) [Entitic vol] 46.6 fL 35.1-43.9 [facility] Hematocrit Auto (Bld) [Volum e fraction]Ordered By: Cortney Villafuerte on 05-19-2023 Hematocrit (Bld) [Volume fraction] 47.3 % 40-54 [facility] Immature granulocytes/100 WB C Auto (Bld)Ordered By: Cortney Villafuerte on 05-19-2023 Immature granulocytes/100 WBC (Bld) 0.500 % 0.0-0.9 [facility] Comment on above: IG% - Immature Granu locytes (promyelocytes, myelocytes and metamyelocytes) > 1% indicates that a LEFT SHIFT is Present. Laboratory - Chemistry and C hemistry - challengeOrdered By: Cortney Villafuerte on 05-19-2023 Albumin/Globulin [Mass ratio] 1.2 {ratio} 0.9-2.4 [facility] ALP [Catalytic activity/Vol] 62 U/L 45-117 [facility] ALT [Catalytic activity/Vol] 21 U/L 16-61 [facility] CO2 [Moles/Vol] 27.0 mmol/L 21.0-32.0 [facility] Globulin (S) [Mass/Vol] 3.3 g/dL 2.2-4.2 [facility] Urea nitrogen/Creatinine [Mass ratio] 26.9 mg/mg 10-20 [facility] Laboratory - Hematology and Cell countsOrdered By: Cortney Villafuerte on 05-19-2023 MCH (RBC) [Entitic mass] 29.7 pg 27.0-32.0 [facility] MCHC (RBC) [Mass/Vol] 32.1 g/dL 32-36 [facility] Nucleated RBC/100 WBC (Bld) [Ratio] 0 % 0-5 [facility] Platelets (Bld) [#/Vol] 171 10*3/uL 150-450 [facility] No Panel InformationOrdered By: Cortney Villafuerte on 05-19-2023 Estimated GFR (MDRD) Amer 48 mL/min >60 [facility] Comment on above: GFR Calc Estimated GFR (MDRD) Non-Af Amer 39 mL/min >60 [facility] Comment on above: Non- GFR Calc Platelet mean volume Felton-Ec ker (Bld) [Entitic vol]Ordered By: Cortney Villafuerte on 05-19-2023 Platelet mean volume (Bld) [Entitic vol] 11.2 fL 6.2-12.0 [facility] RBC Auto (Bld) [#/Vol]Ordere d By: Cortney Villafuerte on 05-19-2023 RBC (Bld) [#/Vol] 5.12 10*6/uL 4.6-6.2 [facility] Serum or plasma calcium davina urement (mass/volume)Ordered By: Cortney Villafuerte on 05-19-2023 Calcium [Mass/Vol] 10.0 mg/dL 8.5-10.1 [facility] Serum or plasma creatinine m easurement (mass/volume)Ordered By: Cortney Villafuerte on 05-19-2023 Creatinine [Mass/Vol] 1.75 mg/dL 0.70-1.30 [facility] Comment on above: The validity of the calculated GFR & GFRAA in patients over 70 years has not been determined. Clinical correlation is essential. Serum or plasma urea nitroge n measurement (mass/volume)Ordered By: Cortney Villafuerte on 05-19-2023 Urea nitrogen [Mass/Vol] 47 mg/dL 7-18 [facility] Thin prep Papanicolaou smear with manual screeningOrdered By: Cortneytash Villafuerte on 05-19-2023 Thin prep Papanicolaou smear with manual screening 4.0 g/dL 3.2-5.0 [facility] Thin prep Papanicolaou smear with manual screening 25 U/L 15-37 [facility] Thin prep Papanicolaou smear with manual screening 9 5-15 [facility] Thin prep Papanicolaou smear with manual screening 28.0 mg/L NO RANGE EST. [facility] Urine albumin/creatinine rat io for detection of microalbuminuriaOrdered By: Cortney Villafuerte on 05-19-2023 Albumin/Creatinine DL <= 1.0 mg/L (24H U) [Ratio] 59.2 mg/g CRE <30 [facility] Urine creatinine measurement (mass/volume)Ordered By: Cortney Villafuerte on 05-19-2023 Creatinine (U) [Mass/Vol] 47.30 mg/dL NO RANGE EST. [facility] US LEG VEIN DVT UNL VAS LABo n 08-12-2021 [facility] ALLIED HEALTHon 08-17-2018 ALLIED HEALTH HNO ID: [id number] Author: Abram (Maintenance Team Member) Roger Gallardo Service: ? Author Type: [employer] Operator Type: Allied Health Filed: 08/17/2018 11:18 AM Note Text: Radiology Service Progress Note PATIENT NAME: Leeann Macias DATE OF SERVICE: August 17, 2018 TIME: 11:17 AM PATIENT IDENTITY VERIFICATION COMPLETED USING TWO (2) METHODS: Patient confirmed name verbally and ID band matches.. PATIENT GENDER DATA: Male PATIENT RELEVANT IMPLANT DATA REVIEWED: Yes RADIOLOGY DEPARTMENT: MR; Exam(s) Completed: Head: Seizure PERIPHERAL IV DATA: Not applicable SIGNED BY: Roger Noguera August 17, 2018 11:17 AM [facility] MRI BRAIN WO IVCONon -16-2 019 MRI BRAIN WO IVCON * * *Final Report* * * DATE OF EXAM: Aug 17 2018 11:36AM [facility] 0294 - MRI BRAIN WO IVCON / PROCEDURE REASON: Other generalized epilepsy, not intractable, without status epilepticus (HCC) * * * * Physician Interpretation * * * * RESULT: EXAMINATION: MRI BRAIN WO IVCON CLINICAL HISTORY: Other generalized epilepsy, not intractable, without status epilepticus (HCC) TECHNIQUE: Routine noncontrast MRI protocol including diffusion images. MQ: [id number] COMPARISON: None. RESULT: Acute Change: There is no evidence of restricted diffusion to suggest an acute infarct. Hemorrhage: No evidence of prior parenchymal hemorrhage on the gradient echo images. Mass Lesion/ Mass Effect: No evidence of an intracranial mass or extra-axial fluid collection. No significant mass effect. Chronic Change: Scattered patchy areas of increased T2 and FLAIR signal are present in the supratentorial white matter which is a nonspecific finding but likely represents mild chronic microvascular ischemia. Mild T2 hyperintensity in the globi pallidi which likely reflects mineralization. Parenchyma: There is mild generalized parenchymal volume loss. The hippocampi demonstrate normal signal and morphology. Ventricles: Normal caliber and morphology. Skull Base: Hypothalamic and pituitary region are grossly normal. Craniocervical junction is normal. No significant marrow replacement process. Vasculature: Major intracranial arterial structures, and dural venous sinuses show typical flow void, suggesting patency by spin echo criteria. Other: The visualized paranasal sinuses and mastoid air cells are clear. The orbits and extracranial soft tissues are unremarkable. IMPRESSION: No evidence of an acute intracranial process. No evidence of parenchymal mass or developmental anomaly. Nonspecific patchy white matter signal abnormalities which likely represent chronic microvascular ischemic changes. Transcribed Using Voice Recognition Transcribe Date/Time: Aug 17 2018 11:38A Dictated by: TK PEARCE MD This examination was interpreted and the report reviewed and electronically signed by: TK PEARCE MD on Aug 17 2018 11:44AM EST [id number] ACN Normal [facility] Office Visit: Est. Pt. Visit on 02-06-2017 Documentation of current medications (procedure) Done Invalid Interpretation Code [facility] Work Phone: [phone] Fall risk assessment No Invalid Interpretation Code [place] [facility] Work Phone: [phone] Protein mass conc Done Invalid Interpretation Code [place] [facility] Work Phone: [phone] Tobacco smoking status MEIS Unknown Invalid Interpretation Code [facility] Work Phone: [phone] Tobacco smoking status MEIS Never smoker Invalid Interpretation Code [place] [facility] Work Phone: [phone] Tobacco use [facility] Never smoker Invalid Interpretation Code [place] [facility] Work Phone: [phone] Lab Report: CBC W/Diff, Auto matedon 02-02-2017 Absolute Neut 6.5 X10 3/UL Invalid Interpretation Code 2.0-7.7 [facility] Work Phone: [phone] Basophils/100 WBC Auto (Bld) 0.2 % Invalid Interpretation Code 0-1 [place] [facility] Work Phone: [phone] Eosinophils/100 leukocytes 1.7 % Inval id Interpretation Code 0-5 [place] [facility] Work Phone: [phone] Erythrocyte distribution width Auto Ratio (RBC) 15.0 % High 11.6-14.6 [facility] Work Phone: [phone] Erythrocyte distribution width Auto Ratio (RBC) 48.9 fL High 35.1-43.9 [facility] Work Phone: [phone] Erythrocytes (RBC) 4.24 10*6/uL Low 4.6-6.2 [facility] Work Phone: [phone] Hematocrit (HCT) 38.0 % Low 40-54 [facility] Work Phone: [phone] Hemoglobin mass conc (Bld) 12.9 g/dL Low 13.0-16.5 [place] [facility] Work Phone: [phone] Immature granulocytes #/vol (Bld) 0.200 % Invalid Interpretation Code 0.0-0.9 [place] [facility] Work Phone: [phone] Immature granulocytes/100 WBC (Bld) 0.200 % Invalid Interpretation Code 0.0-0.9 [place] [facility] Work Phone: [phone] Lymphocytes 0.90 X10 3/UL Invalid Interpretation Code 0.83-4.51 [place] [facility] Work Phone: [phone] Lymphocytes/100 leukocytes 11.1 % Low 19-41 [facility] Work Phone: [phone] MCH 30.4 pg Invalid Interpretation Code 27.0-32.0 [place] [facility] Work Phone: [phone] MCHC mass conc (RBC) 33.9 G/GL Invalid Interpretation Code 32-36 [place] [facility] Work Phone: [phone] MCV 89.6 fL Invalid Interpretation Code 80-94 [facility] Work Phone: [phone] Monocytes/100 leukocytes 7.0 % Invalid Interpretation Code 0-10 [facility] Work Phone: [phone] Neutrophils Auto #/vol (Bld) 6.5 X10 3/UL Invalid Interpretation Code 2.0-7.7 [facility] Work Phone: [phone] Neutrophils/100 WBC Auto (Bld) 79.8 % High 47-70 [facility] Work Phone: [phone] Platelets 153 10*3/mm3 Invalid Interpretation Code 150-450 [facility] Work Phone: [phone] PMV by Wilian 10.1 fL Invalid Interpretation Code 6.2-12.0 [facility] Work Phone: [phone] RDW SD 48.9 fL High 35.1-43.9 [place] [facility] Work Phone: [phone] WBC (Leukocytes) 8.1 10*3/uL Invalid Interpretation Code 4.4-11.0 [facility] Work Phone: [phone] Lab Report: Comprehensive Mt tabolic Profilon 02-02-2017 Alanine aminotransferase (ALT) 20 U/L Invalid Interpretation Code 12-78 [facility] Work Phone: [phone] Albumin 3.2 g/dL Low 3.4-5.0 [facility] Work Phone: [phone] Albumin/Globulin Ratio 0.9 {ratio} Invalid Interpretation Code 0.9-2.4 [facility] Work Phone: [phone] Alkaline phosphatase (ALP) 61 U/L Inval id Interpretation Code 45-117 [facility] Work Phone: [phone] ALP enzyme act/vol (Bld) 61 U/L Invalid Interpretation Code 45-117 [facility] Work Phone: [phone] Anion gap 8 mmol/L Invalid Interpretation Code 5-15 [facility] Work Phone: [phone] Anion gap 4 molar conc 8 Invalid Interpretation Code 5-15 [facility] Work Phone: [phone] Aspartate aminotransferase (AST) 16 U/L Invalid Interpretation Code 15-37 [facility] Work Phone: [phone] Bilirubin (total) 0.60 mg/dL Invalid Interpretation Code 0.20-1.00 [facility] Work Phone: [phone] BUN/Creatinine Ratio 20.8 RATIO High 10-20 [facility] Work Phone: [phone] Calcium 8.4 mg/dL Low 8.5-10.1 [place] [facility] Work Phone: [phone] Chloride 102 mmol/L Invalid Interpretation Code 98-107 [facility] Work Phone: [phone] CO2 29.0 mmol/L Invalid Interpretation Code 21.0-32.0 [facility] Work Phone: [phone] CO2 ppres (BldV) 29.0 mmol/L Invalid Interpretation Code 21.0-32.0 [facility] Work Phone: [phone] Creatinine 1.06 mg/dL Invalid Interpretation Code 0.70-1.30 [facility] Work Phone: [phone] Creatinine 53.77 mL/min Invalid Interpretation Code [place] [facility] Work Phone: [phone] eGFR (non-black) 86 mL/min/{1.73_m2} Invalid Interpretation Code >60 [place] [facility] Work Phone: [phone] eGFR (non-black) 71 mL/min/{1.73_m2} Invalid Interpretation Code >60 [facility] Work Phone: [phone] EST GFR - AA 86 mL/min Invalid Interpretation Code >60 [facility] Work Phone: [phone] Globulin 3.4 g/dL Invalid Interpretation Code 2.3-3.5 [facility] Work Phone: [phone] Glucose mass conc 118 mg/dL High 70-110 [facility] Work Phone: [phone] Potassium molar conc 3.7 mmol/L Invalid Interpretation Code 3.5-5.1 [facility] Work Phone: [phone] Protein 6.6 g/dL Invalid Interpretation Code 6.4-8.2 [facility] Work Phone: [phone] Sodium 139 mmol/L Invalid Interpretation Code 136-145 [facility] Work Phone: [phone] Urea nitrogen 22 mg/dL High 7-18 [facility] Work Phone: [phone] Lab Report: Lipaseon 017 LIPASE 186 U/L Invalid Interpretation Code 73-393 [facility] Work Phone: [phone] Lab Report: Prothrombin Time w/INRon 02-02-2017 INR Coag RelTime (PPP) 1.7 {INR} Invalid Interpretation Code [place] [facility] Work Phone: [phone] Prothrombin time (PT) Coag time (PPP) 18.9 s High 11.7-14.9 [facility] Work Phone: [phone] Lab Report: Troponin-Ion Troponin I.cardiac mass conc ng/mL Invalid Interpretation Code <0.06 [place] [facility] Work Phone: Lab Report: AST(SGOT)on 01-03 AST enzyme act/vol 19 U/L 15-37 [facility] Work Phone: Lab Report: Basic Metabolic Profile (BMP)on 01-28-2017 Anion gap molar conc 10 mmol/L 5-15 [facility] Work Phone: [phone] Calcium mass conc 8.6 mg/dL 8.5-10.1 [facility] Work Phone: [phone] Chloride molar conc 102 mmol/L 98-107 [facility] Work Phone: [phone] CO2 ppres (BldV) 25.0 mmol/L 21.0-32.0 [facility] Work Phone: [phone] Creatinine mass conc 1.11 mg/dL 0.70-1.30 [facility] Work Phone: [phone] EST GFR - AA 82 mL/min >60 [facility] Work Phone: [phone] GFR/1.73 sq M predicted among non-blacks MDRD vol rate/area (S/P/Bld) 68 mL/min/{1.73_m2} >60 [facility] Internal [facility] Work Phone: [phone] Glucose mass conc 102 mg/dL 70-110 [facility] Work Phone: [phone] Potassium molar conc 3.5 mmol/L 3.5-5.1 [facility] Work Phone: [phone] Sodium molar conc 137 mmol/L 136-145 [facility] Work Phone: [phone] Urea nitrogen mass conc 25 mg/dL High 7-18 [facility] Work Phone: [phone] Urea nitrogen/Creatinine mass ratio 22.5 RATIO High 10-20 [facility] Work Phone: [phone] Lab Report: CBC W/Diff, Auto matedon 01-28-2017 Basophils/100 WBC (Bld) 0.4 % 0-1 [facility] Work Phone: [phone] Eosinophils/100 WBC (Bld) 3.5 % 0-5 [facility] Work Phone: [phone] Erythrocyte distribution width Ratio (RBC) 47.1 fL High 35.1-43.9 [facility] Work Phone: [phone] Erythrocyte distribution width Ratio (RBC) 14.9 % High 11.6-14.6 [facility] Work Phone: [phone] Hematocrit Volume Fraction (Bld) 39.7 % Low 40-54 [facility] Work Phone: [phone] Hemoglobin mass conc (Bld) 13.5 g/dL 13.0-16.5 [facility] Work Phone: [phone] Immature granulocytes #/vol (Bld) 0.400 % 0.0-0.9 [facility] Work Phone: [phone] Lymphocytes #/vol (Bld) 1.77 X10 3/UL 0.83-4.51 [facility] Work Phone: [phone] Lymphocytes/100 WBC (Bld) 22.9 % 19-41 [facility] Work Phone: [phone] MCH Entitic mass (RBC) 29.9 pg 27.0-32.0 Bl [facility] Work Phone: [phone] MCHC mass conc (RBC) 34.0 G/GL 32-36 [facility] Work Phone: [phone] MCV Entitic volume (RBC) 88.0 fL 80-94 [facility] Work Phone: [phone] Monocytes/100 WBC (Bld) 10.5 % High 0-10 [facility] Work Phone: [phone] Neutrophils #/vol (Bld) 4.8 X10 3/UL 2.0-7.7 [facility] Work Phone: [phone] Neutrophils/100 WBC (Bld) 62.3 % 47-70 [facility] Work Phone: [phone] Platelet mean volume Entitic volume (Bld) 11.1 fL 6.2-12.0 [facility] Work Phone: [phone] Platelets #/vol (Bld) 179 10*3/mm3 150-450 [facility] Work Phone: [phone] RBC #/vol (Bld) 4.51 10*6/uL Low 4.6-6.2 [facility] Work Phone: [phone] WBC #/vol (Bld) 7.7 10*3/uL 4.4-11.0 [facility] Work Phone: [phone] Lab Report: Prothrombin Time w/INRon 01-28-2017 INR Coag RelTime (PPP) 1.8 {INR} Bl [facility] Work Phone: [phone] Prothrombin time (PT) Coag time (PPP) 20.3 s High 11.7-14.9 [facility] Work Phone: [phone] Lab Report: Hemoglobin A1con 01-06-2017 HbA1c 6.1 % Invalid Interpretation Code 4.2-6.3 [place] [facility] Work Phone: [phone] Lab Report: Prothrombin Time w/INRon 01-06-2017 Coagulation tissue factor induced in platelet poor plasma 31.7 s High 11.7-14.9 [facility] Work Phone: [phone] INR Coag RelTime (PPP) 3.2 {INR} Bl [facility] Work Phone: [phone] INR in blood by coagulation 3.2 {INR} Invalid Interpretation Code [place] [facility] Work Phone: [phone] Office Visit: F/U [place] 01-06 Documentation of current medications (procedure) Done Invalid Interpretation Code [facility] Work Phone: [phone] Fall risk assessment No Invalid Interpretation Code [facility] Work Phone: [phone] Protein mass conc Done Invalid Interpretation Code [place] [facility] Work Phone: [phone] Tobacco smoking status MEIS Unknown Invalid Interpretation Code [facility] Work Phone: [phone] Tobacco smoking status [facility] Never smoker Invalid Interpretation Code [facility] Work Phone: [phone] Tobacco use [facility] Never smoker Invalid Interpretation Code [facility] Work Phone: [phone] Lab Report: (P) Urinalysis, Completeon 12-31-2016 Albumin Ql (U) 30 High Negative [facility] Work Phone: [phone] Bilirubin Ql (U) Negative Invalid Interpretation Code Negative [facility] Work Phone: [phone] Ketones mass conc (U) 15 High Negative [facility] Work Phone: [phone] NITRITE UR Negative Invalid Interpretation Code Negative [facility] Work Phone: [phone] Nitrite Urine Negative Invalid Interpretation Code Negative [facility] Work Phone: [phone] Occult Blood, urine 150 High Negative [facility] Work Phone: [phone] OCCULT BLOOD-UR 150 High Negative [facility] Work Phone: [phone] pH (U) 6.5 [pH] 5.0 - 8.0 [facility] Work Phone: [phone] specific gravity, urine 1.015 Invalid Interpretation Code 1.002-1.030 [facility] Work Phone: [phone] Urine, bilirubin presence Negative Invali d Interpretation Code Negative [facility] Work Phone: [phone] Urine, clarity Clear Invalid Interpretation Code Clear [facility] Work Phone: [phone] Urine, color Yellow Invalid Interpretation Code Yellow [facility] Work Phone: [phone] Urine, glucose presence Normal mg/dl Invalid Interpretation Code Normal [facility] Work Phone: [phone] Urine, ketones presence 15 High Negative [facility] Work Phone: [phone] Urine, leukocyte esterase presence Negative Invalid Interpretation Code Negative [place] [facility] Work Phone: [phone] Urine, pH 6.5 [pH] Invalid Interpretation Code 5.0 - 8.0 [place] [facility] Work Phone: [phone] Urine, protein 30 mg/dL High Negative [facility] Work Phone: [phone] UROBILI 1 mg/dL High Normal [place] [facility] Work Phone: [phone] urobilinogen, urine, by dipstick 1 mg/dL High Normal [facility] Work Phone: [phone] Lab Report: Basic Metabolic Profile (BMP)on 12-31-2016 Anion gap 9 mmol/L Invalid Interpretation Code 5-15 [facility] Work Phone: [phone] BUN/Creatinine Ratio 15.9 RATIO Invalid Interpretation Code 10-20 [facility] Work Phone: [phone] Calcium 8.5 mg/dL Invalid Interpretation Code 8.5-10.1 [facility] Work Phone: [phone] Chloride 98 mmol/L Invalid Interpretation Code 98-107 [facility] Work Phone: [phone] CO2 30.0 mmol/L Invalid Interpretation Code 21.0-32.0 [facility] Work Phone: [phone] Creatinine 50.44 mL/min Invalid Interpretation Code [facility] Work Phone: [phone] Creatinine 1.13 mg/dL Invalid Interpretation Code 0.70-1.30 [facility] Work Phone: [phone] eGFR (non-black) 80 mL/min/{1.73_m2} Invalid Interpretation Code >60 [place] [facility] Work Phone: [phone] eGFR (non-black) 66 mL/min/{1.73_m2} Invalid Interpretation Code >60 [facility] Work Phone: [phone] Glucose 136 mg/dL High 70-110 [facility] Work Phone: [phone] Potassium 2.9 mmol/L Low 3.5-5.1 [facility] Work Phone: [phone] Sodium 137 mmol/L Invalid Interpretation Code 136-145 [facility] Work Phone: [phone] Urea nitrogen 18 mg/dL Invalid Interpretation Code 7-18 [facility] Work Phone: [phone] Lab Report: CBC W/Diff, Auto matedon 12-31-2016 complete blood count (CBC), comments . Invalid Interpretation Code [facility] Work Phone: [phone] SMEAR COMMENT . Invalid Interpretation Code [facility] Work Phone: [phone] Lab Report: Prothrombin Time w/INRon 12-31-2016 Coagulation tissue factor induced in platelet poor plasma 17.9 s High 11.7-14.9 [facility] Work Phone: [phone] INR in blood by coagulation 1.5 {INR} Invalid Interpretation Code [facility] Work Phone: [phone] Lab Report: Urinalysis, Comp leteon 12-31-2016 Bacteria LM.HPF #/area (Urine sed) 0 SEEN /hpf None Seen [facility] Work Phone: [phone] Mucus Ql (Urine sed) 0 SEEN [facility] Work Phone: [phone] Urine, bacteria in sediment 0 /[HPF] Invalid Interpretation Code None Seen [facility] Work Phone: [phone] Urine, epithelial cells in sediment 0 SEEN Invalid Interpretation Code 0-5 [facility] Work Phone: [phone] Urine, erythrocytes in sediment by volume 0-5 SEEN Invalid Interpretation Code 0-5 [facility] Work Phone: [phone] Urine, mucus presence in sediment 0 SEEN Invalid Interpretation Code [facility] Work Phone: [phone] WBC 0 SEEN Invalid Interpretation Code 0-5 [facility] Work Phone: [phone] WBC #/vol (Bld) 0 SEEN 0-5 [facility] Work Phone: [phone] WBC (Leukocytes) 0 SEEN Invalid Interpretation Code 0-5 [place] [facility] Work Phone: [phone] Replaced Document: (P) CBC W /Diff, Automatedon 12-31-2016 Basophils/100 leukocytes 0.1 % Invalid Interpretation Code 0-1 [place] [facility] Work Phone: [phone] Eosinophils/100 leukocytes 0.0 % Inval id Interpretation Code 0-5 [place] [facility] Work Phone: [phone] Erythrocytes (RBC) 4.83 10*6/uL Invalid Interpretation Code 4.6-6.2 [place] [facility] Work Phone: [phone] Hematocrit (HCT) 42.5 % Invalid Interpretation Code 40-54 [facility] Work Phone: [phone] Hemoglobin (HGB) 14.5 g/dL Invalid Interpretation Code 13.0-16.5 [facility] Work Phone: [phone] immature granulocytes, percentage of total cells, blood 0.200 % Invalid Interpretation Code 0.0-0.9 [facility] Work Phone: [phone] Lymphocytes 0.47 X10 3/UL Low 0.83-4.51 [facility] Work Phone: [phone] Lymphocytes/100 leukocytes 3.9 % Low 19-41 [facility] Work Phone: [phone] MCH 30.0 pg Invalid Interpretation Code 27.0-32.0 [facility] Work Phone: [phone] MCHC 34.1 G/GL Invalid Interpretation Code 32-36 [facility] Work Phone: [phone] MCV 88.0 fL Invalid Interpretation Code 80-94 [place] [facility] Work Phone: [phone] Monocytes/100 leukocytes 2.7 % Invalid Interpretation Code 0-10 [place] [facility] Work Phone: [phone] neutrophil count, blood 11.1 X10 3/UL High 2.0-7.7 [facility] Work Phone: [phone] Neutrophils/100 leukocytes 93.1 % High 47-70 [place] [facility] Work Phone: [phone] Platelets 123 10*3/mm3 Low 150-450 [place] [facility] Work Phone: [phone] PMV by Wilian 10.2 fL Invalid Interpretation Code 6.2-12.0 [facility] Work Phone: [phone] RDW-CA 14.2 % Invalid Interpretation Code 11.6-14.6 [facility] Work Phone: [phone] red blood cell distribution width, size density 46.0 fL High 35.1-43.9 [place] [facility] Work Phone: [phone] WBC (Leukocytes) 11.9 10*3/uL High 4.4-11.0 [facility] Work Phone: [phone] Lab Report: CBC W/Diff, Auto matedon 11-14-2016 Basophils/100 leukocytes 0.4 % Invalid Interpretation Code 0-1 [facility] Eosinophils/100 leukocytes 2.7 % Inval id Interpretation Code 0-5 [facility] Erythrocytes (RBC) 5.04 10*6/uL Invalid Interpretation Code 4.6-6.2 [facility] Hematocrit (HCT) 43.9 % Invalid Interpretation Code 40-54 [facility] Hemoglobin (HGB) 15.1 g/dL Invalid Interpretation Code 13.0-16.5 [facility] immature granulocytes, percentage of total cells, blood 0.600 % Invalid Interpretation Code 0.0-0.9 [facility] Lymphocytes 1.51 X10 3/UL Invalid Interpretation Code 0.83-4.51 [facility] Lymphocytes/100 leukocytes 17.9 % Low 19-41 [facility] MCH 30.0 pg Invalid Interpretation Code 27.0-32.0 [facility] MCHC 34.4 G/GL Invalid Interpretation Code 32-36 [facility] MCV 87.1 fL Invalid Interpretation Code 80-94 [facility] Monocytes/100 leukocytes 10.2 % High 0-10 [facility] neutrophil count, blood 5.8 X10 3/UL Invalid Interpretation Code 2.0-7.7 [facility] Neutrophils/100 leukocytes 68.2 % Inval id Interpretation Code 47-70 [facility] Platelets 139 10*3/mm3 Low 150-450 [place] [facility] PMV by Wilian 10.4 fL Invalid Interpretation Code 6.2-12.0 [facility] RDW-CA 14.7 % High 11.6-14.6 [facility] red blood cell distribution width, size density 47.0 fL High 35.1-43.9 [facility] WBC (Leukocytes) 8.4 10*3/uL Invalid Interpretation Code 4.4-11.0 [facility] Lab Report: Comprehensive Mt tabolic Profilon 11-14-2016 Alanine aminotransferase (ALT) 27 U/L 12-78 [facility] Albumin 3.6 g/dL 3.4-5.0 [facility] Albumin/Globulin Ratio 1 {ratio} 0.9-2.4 [facility] Internal Medicine Alkaline phosphatase (ALP) 71 U/L Inval id Interpretation Code 45-117 [facility] ALP enzyme act/vol (Bld) 71 U/L 45-117 [facility] Work Phone: Anion gap 6 mmol/L Invalid Interpretation Code 5-15 [facility] Aspartate aminotransferase (AST) 20 U/L Invalid Interpretation Code 15-37 [facility] Bilirubin (total) 1.00 mg/dL 0.20-1.00 [facility] BUN/Creatinine Ratio 19.5 RATIO Invalid Interpretation Code 10-20 [facility] Calcium 8.7 mg/dL Invalid Interpretation Code 8.5-10.1 [facility] Chloride 99 mmol/L Invalid Interpretation Code 98-107 [facility] CO2 31.0 mmol/L Invalid Interpretation Code 21.0-32.0 [facility] Creatinine 1.13 mg/dL Invalid Interpretation Code 0.70-1.30 [facility] eGFR (non-black) 66 mL/min/{1.73_m2} Invalid Interpretation Code >60 [facility] eGFR (non-black) 80 mL/min/{1.73_m2} Invalid Interpretation Code >60 [facility] Globulin 3.7 g/dL High 2.3-3.5 [facility] Globulin mass conc (S) 3.7 g/dL High 2.3-3.5 [facility] Internal Medicine Work Phone: Glucose 99 mg/dL Invalid Interpretation Code 70-110 [facility] Potassium 3.9 mmol/L Invalid Interpretation Code 3.5-5.1 [facility] Protein 7.3 g/dL 6.4-8.2 [facility] Sodium 136 mmol/L Invalid Interpretation Code 136-145 [facility] Urea nitrogen 22 mg/dL High 7-18 [facility] Lab Report: Lipid Profileon 11-14-2016 LDL Cholesterol 178 mg/dL High 0-130 [facility] very low density lipoproteins 21 mg/dL Invalid Interpretation Code 5-40 [facility] Cholesterol 253 mg/dL High 200 [facility] HDL Cholesterol 54 mg/dL Invalid Interpretation Code [facility] Triglyceride 106 mg/dL Invalid Interpretation Code [facility] Lab Report: PSA,Total- Diagn osticon 11-14-2016 prostate specific antigen, total 1.83 ng/mL Invalid Interpretation Code 0.0-4.0 [facility] Protein mass conc 1.83 ng/mL Invalid Interpretation Code 0.0-4.0 [facility] Work Phone: PSA, DIAGNOSTIC 1.83 ng/mL Invalid Interpretation Code 0.0-4.0 [facility] Work Phone: Lab Report: Prothrombin Time w/INRon 11-14-2016 Coagulation tissue factor induced in platelet poor plasma 14 s Invalid Interpretation Code 11.7-14.9 [facility] INR in blood by coagulation 1.1 {INR} Invalid Interpretation Code [facility] Lab Report: CBC W/Diff, Auto matedon 11-13-2016 Basophils/100 leukocytes 0.5 % Invalid Interpretation Code 0-1 [facility] Eosinophils/100 leukocytes 2.0 % Inval id Interpretation Code 0-5 [facility] Erythrocytes (RBC) 5.21 10*6/uL Invalid Interpretation Code 4.6-6.2 [facility] Hematocrit (HCT) 45.7 % Invalid Interpretation Code 40-54 [facility] Hemoglobin (HGB) 15.6 g/dL Invalid Interpretation Code 13.0-16.5 [facility] immature granulocytes, percentage of total cells, blood 0.700 % Invalid Interpretation Code 0.0-0.9 [facility] Lymphocytes 1.54 X10 3/UL Invalid Interpretation Code 0.83-4.51 [facility] Lymphocytes/100 leukocytes 16.8 % Low 19-41 [facility] MCH 29.9 pg Invalid Interpretation Code 27.0-32.0 [facility] MCHC 34.1 G/GL Invalid Interpretation Code 32-36 [facility] MCV 87.7 fL Invalid Interpretation Code 80-94 [facility] Monocytes/100 leukocytes 8.9 % Invalid Interpretation Code 0-10 [facility] neutrophil count, blood 6.5 X10 3/UL Invalid Interpretation Code 2.0-7.7 [facility] Neutrophils/100 leukocytes 71.1 % High 47-70 [facility] Platelets 150 10*3/mm3 Invalid Interpretation Code 150-450 [facility] PMV by Wilian 10.7 fL Invalid Interpretation Code 6.2-12.0 [facility] RDW-CA 14.9 % High 11.6-14.6 [facility] red blood cell distribution width, size density 47.7 fL High 35.1-43.9 [facility] WBC (Leukocytes) 9.2 10*3/uL Invalid Interpretation Code 4.4-11.0 [facility] Office Visit: New Pt Visiton 11-13-2016 Documentation of current medications (procedure) Done Invalid Interpretation Code [facility] Fall risk assessment No Invalid Interpretation Code [facility] Tobacco smoking status NHIS Unknown Invalid Interpretation Code [facility] Tobacco use CPHS Never smoker Invalid Interpretation Code [facility] Vital Signs Date Time Vital Sign Value Performing Clinician Facility 11-28-2024 10:58-0400 Diastolic blood pressure 85 mm[Hg] Shimon Cota MD Work Phone: [facility] Comment on above: la 11-28-2024 10:58-0400 Heart rate 64 /min Shimon Cota MD Work Phone: [facility] 11-28-2024 10:58-0400 Systolic blood pressure 144 mm[Hg] Shimon Cota MD Work Phone: [facility] Comment on above: la 11-28-2024 10:55-0400 Body height 172.7 cm Shimon Cota MD Work Phone: [facility] 11-28-2024 10:55-0400 Body mass index (BMI) [Ratio] 25.24 kg/m2 Shimon Cota MD Work Phone: [facility] 11-28-2024 10:55-0400 Body weight 75.3 kg Shimon Cota MD Work Phone: [facility] 11-28-2024 10:55-0400 SaO2% (BldA) [Mass fraction] 98 % Shimon Cota MD Work Phone: [facility] 08-03-2023 13:10-0400 Diastolic blood pressure 81 mm[Hg] Shimon Cota MD Work Phone: [facility] 08-03-2023 13:10-0400 Systolic blood pressure 161 mm[Hg] Shimon Cota MD Work Phone: [facility] 08-03-2023 13:05-0400 Body height 170.5 cm Shimon Cota MD Work Phone: [facility] 08-03-2023 13:05-0400 Body weight 79.38 kg Shimon Cota MD Work Phone: [facility] 08-03-2023 13:05-0400 Heart rate 63 /min Shimon Cota MD Work Phone: [facility] 08-03-2023 13:05-0400 SaO2% (BldA) [Mass fraction] 97 % Shimon Cota MD Work Phone: [facility] 08-28-2022 10:44-0400 Body height 165.1 cm Shimon Cota MD Work Phone: [facility] 08-28-2022 10:44-0400 Body weight 78.02 kg Shimon Cota MD Work Phone: [facility] 08-28-2022 10:44-0400 Diastolic blood pressure 65 mm[Hg] Shimon Cota MD Work Phone: [facility] 08-28-2022 10:44-0400 Heart rate 56 /min Shimon Cota MD Work Phone: [facility] 08-28-2022 10:44-0400 SaO2% (BldA) [Mass fraction] 98 % Shimon Cota MD Work Phone: [facility] 08-28-2022 10:44-0400 Systolic blood pressure 169 mm[Hg] Shimon Cota MD Work Phone: [facility] 09-16-2021 10:02-0400 Body height 174 cm Andreea Stanley MD Work Phone: [facility] 09-16-2021 10:02-0400 Body weight 78.83 kg Andreea Stanley MD Work Phone: [facility] 09-16-2021 10:02-0400 Diastolic blood pressure 74 mm[Hg] Andreea Stanley MD Work Phone: [facility] 09-16-2021 10:02-0400 Heart rate 58 /min Andreea Stanley MD Work Phone: [facility] 09-16-2021 10:02-0400 SaO2% (BldA) [Mass fraction] 96 % Andreea Stanley MD Work Phone: [facility] 09-16-2021 10:02-0400 Systolic blood pressure 163 mm[Hg] Andreea Stanley MD Work Phone: [facility] 08-12-2021 13:03-0400 Diastolic blood pressure 75 mm[Hg] Andreea Stanley MD Work Phone: [facility] 08-12-2021 13:03-0400 Systolic blood pressure 152 mm[Hg] Andreea Stanley MD Work Phone: [facility] 08-12-2021 13:00-0400 Body height 174 cm Andreea Stanley MD Work Phone: [facility] 08-12-2021 13:00-0400 Body weight 79.88 kg Andreea Stanley MD Work Phone: [facility] 08-12-2021 13:00-0400 Heart rate 72 /min Andreea Stanley MD Work Phone: [facility] 08-12-2021 13:00-0400 SaO2% (BldA) [Mass fraction] 97 % Andreea Stanley MD Work Phone: [facility] 02-06-2017 07:45-0400 BMI (Body Mass Index) 27.57 kg/m2 Omi Antunez [employer] [facility] Work Phone: 02-06-2017 07:45-0400 Body Temperature 97.9 [degF] Omi Antunez [employer] Work Phone: 02-06-2017 07:45-0400 BP Diastolic 74 mm[Hg] Omi Antunez [employer] Work Phone: 02-06-2017 07:45-0400 BP Systolic 146 mm[Hg] Omi Antunez [employer] [facility] Work Phone: 02-06-2017 07:45-0400 Height 173.99 cm Omi Connorder [employer] Work Phone: 02-06-2017 07:45-0400 Pulse (Heart Rate) 56 /min Omi Antunez [employer] Work Phone: 02-06-2017 07:45-0400 Respiratory Rate 16 /min Omi Antunez [employer] Work Phone: 02-06-2017 07:45-0400 Weight 83.46 kg Omi Connorder [employer] Work Phone: 02-02-2017 03:56-0400 Body surface area Derived from formula 53.77 mL/min Omi CLARK-C [facility] Work Phone: 01-06-2017 09:04-0400 BMI (Body Mass Index) 27.14 kg/m2 Omi CLARK-C [facility] Work Phone: 01-06-2017 09:04-0400 Body Temperature 98.6 [degF] Omi CLARK-Simón [facility] Work Phone: 01-06-2017 09:04-0400 BP Diastolic 81 mm[Hg] Omi CLARK-C [facility] Work Phone: 01-06-2017 09:04-0400 BP Systolic 146 mm[Hg] Omi CLARK-Simón [facility] Work Phone: 01-06-2017 09:04-0400 Height 173.99 cm Omi CLARK-Simón [facility] Work Phone: 01-06-2017 09:04-0400 Pulse (Heart Rate) 71 /min Omi CLARK-C [facility] Work Phone: 01-06-2017 09:04-0400 Respiratory Rate 18 /min Omi CLARK-Simón [facility] Work Phone: 01-06-2017 09:04-0400 Weight 82.16 kg Omi CLARK-Simón [facility] Work Phone: 12-31-2016 21:06-0400 Body surface area Derived from formula 50.44 mL/min Omi CLARK-C [facility] Work Phone: 11-13-2016 08:14-0400 BMI (Body Mass Index) 26.84 kg/m2 Bonnie Monteiro MD [facility] 11-13-2016 08:14-0400 BP Diastolic 90 mm[Hg] Bonnie Monteiro MD [facility] 11-13-2016 08:14-0400 BP Systolic 160 mm[Hg] Bonnie Monteiro MD [facility] 11-13-2016 08:14-0400 Height 173.99 cm Bonnie Monteiro MD [facility] 11-13-2016 08: Pulse (Heart Rate) 50 /min Bonnie Monteiro MD [facility] 11-13-2016 08: Weight 81.25 kg Bonnie Monteiro MD [facility] Encounters Encounter Date Encounter Type Care Provider Facility Start: 12-22-2024 ambulatory [facility] Facility:[facility] Start: 11-28-2024 End: 11-28-2024 Patient encounter procedure Shimon Cota MD Work Phone: Cardiology Comment on above: S/P AVR (aortic valv e replacement) (Primary Dx); Persistent atrial fibrillation (HCC) Start: 11-28-2024 End: 11-28-2024 ambulatory SHIMON COTA Facility:[facility] Start: 11-28-2024 End: 11-28-2024 ambulatory BONNIE MONTEIRO Facility:[facility] Start: 09-27-2024 End: 09-27-2024 Orders Only Shimon Cota MD Work Phone: Cardiology Comment on above: Primary hypertension (Primary Dx); S/P AVR (aortic valve replacement) Start: 03-18-2024 End: 03-21-2024 Refill Shimon Cota MD Work Phone: Cardiology Comment on above: Refill Request Start: 12-27-2023 End: 12-27-2023 Emergency department patient visit [facility] Facility:[facility] Start: 08-03-2023 End: 08-03-2023 Patient encounter procedure Shimon Cota MD Work Phone: Cardiology Comment on above: S/P AVR (aortic valv e replacement) (Primary Dx); Primary hypertension; Recurrent deep vein thrombosis (DVT) (HCC) Start: 06-18-2023 Orders Only Shimon johnson MD Work Phone: Cardiology Comment on above: Primary hypertension (Primary Dx); S/P AVR (aortic valve replacement) Start: 05-19-2023 End: 05-19-2023 ambulatory DIRECTOR OF NURSING-C Cortney Christo Work Phone: [facility] Work Phone: Start: 05-19-2023 End: 05-19-2023 Patient encounter procedure DIRECTOR OF NURSING-C Cortney Villafuerte Work Phone: [facility] Start: 05-19-2023 Non-patient / Non-visit DIRECTOR OF NURSING-C Alfred Villafuerte Work Phone: [facility] Start: 05-19-2023 End: 05-19-2023 ambulatory DIRECTOR OF NURSING-C Cortney Villafuerte Work Phone: [facility] Work Phone: Start: 05-19-2023 End: 05-19-2023 Patient encounter procedure DIRECTOR OF NURSING-C Cortney Villafuerte Work Phone: [facility] Work Phone: Start: 08-28-2022 End: 08-28-2022 Patient encounter procedure Shimon Cota MD Work Phone: Cardiology Comment on above: S/P AVR (aortic valv e replacement) (Primary Dx); Primary hypertension; Hypercholesterolemia Start: 06-17-2022 Orders Only Shimon johnson MD Work Phone: Cardiology Comment on above: S/P AVR (Primary Dx) Start: 04-15-2022 Orders Only Shimon johnson MD Work Phone: Cardiology Comment on above: SOB (shortness of br eath) (Primary Dx) Start: 01-23-2022 Refill Shimon johnson MD Work Phone: Cardiology Comment on above: Refill Request Start: 09-16-2021 End: 09-16-2021 Patient encounter procedure Andreea Stanley MD Work Phone: Vascular Medicine Comment on above: Recurrent deep vein thrombosis (DVT) (HCC) (Primary Dx); Post-thrombotic syndrome; Anticoagulation management encounter Start: 08-12-2021 End: 08-12-2021 Patient encounter procedure Andreea Stanley MD Work Phone: [facility] Medicine Comment on above: Recurrent deep vein thrombosis (DVT) (HCC) (Primary Dx); 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; Acute deep vein thrombosis (DVT) of left femoral vein (HCC); Primary hypertension; Anticoagulation management encounter Start: 08-17-2018 [facility] Start: 06-28-2010 End: 07-12-2010 Patient encounter status Shimon Cota MD Work Phone: [facility] Work Phone: Procedures Date Procedure Procedure Detail Performing Clinician Start: 01-27-2017 End: 02-03-2017 *BMP Omi A Antunez [employer]-C Start: 01-27-2017 End: 02-03-2017 *CBC with Differential Omi A Antunez [employer]- C Start: 01-27-2017 End: 01-28-2017 *BMP Omi A Antunez [employer] Start: 01-27-2017 End: 01-28-2017 *CBC with Differential Omi A Antunez [employer]- C Start: 01-06-2017 End: 01-28-2017 Follow Up Appt 1 month Omi A Antunez [employer]- C Start: 01-06-2017 End: 01-06-2017 Hemoglobin A1c/Hemoglobin.total in Blood Omi A Antunez [employer] Start: 01-06-2017 End: 01-28-2017 Follow Up Appt 1 month Omi A Antunez [employer]- C Start: 01-06-2017 End: 01-06-2017 HbA1c Omi A Antunez [employer] Start: 12-31-2016 End: 12-31-2016 Urinalysis Omi Antunez [employer] Start: 12-11-2016 End: 01-07-2017 INR in Platelet poor plasma by Coagulation assay Bonnie Monteiro MD Work Phone: Start: 12-11-2016 End: 01-07-2017 Coagulation factor induced.INR assay in platelet poor plasma Bonnie Monteiro MD Work Phone: Start: 11-13-2016 End: 11-13-2016 *CBC with Differential Bonnie gomes MD Work Phone: Start: 11-13-2016 End: 11-14-2016 *CMP Complete Metabolic Panel Bonnie Monteiro MD Work Phone: Start: 11-13-2016 End: 11-14-2016 Follow Up Appt 3 months Bonnie king MD Work Phone: Start: 11-13-2016 End: 11-14-2016 INR in Platelet poor plasma by Coagulation assay Bonnie Monteiro MD Work Phone: Start: 11-13-2016 End: 11-14-2016 Lipid 1996 panel - Serum or Plasma Bonnie Monteiro MD Work Phone: Start: 11-13-2016 End: 11-14-2016 Prostate specific Ag [Mass/volume] in Serum or Plasma Bonnie Monteiro MD Work Phone: Start: 11-13-2016 End: 11-13-2016 *CBC with Differential Bonnie gomes MD Work Phone: Start: 11-13-2016 End: 11-14-2016 *CMP Complete Metabolic Panel Bonnie Monteiro MD Work Phone: Start: 11-13-2016 End: 11-14-2016 Coagulation factor induced.INR assay in platelet poor plasma Bonnie Monteiro MD Work Phone: Start: 11-13-2016 End: 11-14-2016 Follow Up Appt 3 months Bonnie king MD Work Phone: Start: 11-13-2016 End: 11-14-2016 Lipid panel [AGGREGATE] Bonnie king MD Work Phone: Start: 11-13-2016 End: 11-14-2016 PSA Bonnie Luna Work Phone: Plan of Treatment Date Care Activity Detail Author Start: 01-02-2025 Influenza vaccination [facility] Start: 11-28-2024 End: 11-28-2024 Patient encounter procedure 11/28/2024 11:00 AM EDT Office Visit Cardiology [address] [place] [address] Shimon Cota MD [address] [facility] [address] [place], [place] [id number] Patient [place] [id number] Cardiology Comment on above: [place] [id number] Start: 11-28-2024 End: 11-28-2024 ambulatory 11/28/2024 10:00 AM EDT Procedure Cardiology [address] [id number] Dx:Hypertension Cardiology Comment on above: Dx:Hypertension Start: 08-02-2024 Hepatitis B surface antibody level LDL Cholesterol [facility] Start: 07-15-2024 DIABETES SCREEN DIABETES SCREEN [facility] Start: 07-15-2024 Diabetes Screening Diabetes Screenin g [facility] Start: 05-04-2024 Advance Directive Discussion Advance Directive Discussion [facility] Start: 01-03-2024 Covid-19 Vaccine () Covid-19 Vaccine () [facility] Start: 01-03-2024 Influenza vaccination C [facility] Start: 06-18-2023 End: 09-17-2023 Lipid 1996 panel - Serum or Plasma LIPID PANEL BASIC Lab Routine Primary hypertension S/P AVR (aortic valve replacement) Expected: 06/18/2023, Expires: 09/17/2023 [facility] Work Phone: Comment on above: Expected: 06/18/2023 , Expires: 09/17/2023 Start: 05-04-2023 Advance Directive Discussion Advance Directive Discussion [facility] Start: 05-04-2023 [facility] Start: 01-02-2023 Covid-19 Vaccine () Covid-19 Vaccine () [facility] Start: 01-02-2023 Influenza vaccination [facility] Start: 07-15-2022 Hepatitis B surface antibody level LDL CHOLESTEROL [facility] Start: 05-04-2022 ADVANCE DIRECTIVE DISCUSSION ADVANCE DIRECTIVE DISCUSSION [facility] Start: 05-04-2022 DEPRESSION ASSESSMENT DEPRESSION ASS ESSMENT [facility] Start: 01-02-2022 Influenza vaccination [facility] Start: 05-04-2021 ADVANCE DIRECTIVE DISCUSSION ADVANCE DIRECTIVE DISCUSSION [facility] Start: 05-04-2021 DEPRESSION ASSESSMENT DEPRESSION ASS ESSMENT [facility] Start: 02-12-2017 End: 02-12-2017 Appointment Appointment [facility] Start: 02-06-2017 End: 02-06-2017 Follow Up Appt 6 months Follow Up Appt 6 months [facility] Work Phone: Start: 02-06-2017 End: 02-06-2017 Appointment Appointment [facility] Work Phone: Start: 02-03-2017 End: 02-03-2017 Appointment Appointment [facility] Work Phone: Start: 01-28-2017 End: 01-28-2017 INR Coag RelTime (PPP) *PT/INR - Standing Order [facility] Work Phone: Start: 01-28-2017 End: 01-28-2017 INR Coag RelTime (PPP) *PT/INR - Standing Order [facility] Work Phone: Start: 01-27-2017 End: 01-28-2017 *BMP *BMP [facility] Work Phone: Start: 01-27-2017 End: 01-28-2017 *CBC with Differential *CBC with Differential [facility] Work Phone: Start: 01-27-2017 End: 01-28-2017 *BMP *BMP [facility] Work Phone: Start: 01-27-2017 End: 01-28-2017 *CBC with Differential *CBC with Differential [facility] Work Phone: Start: 01-06-2017 End: 01-28-2017 Follow Up Appt 1 month Follow Up Appt 1 month [facility] Work Phone: Start: 01-06-2017 End: 01-06-2017 Hemoglobin A1c/Hemoglobin.total mass fraction (Bld) *HgA1C [facility] Work Phone: Start: 01-06-2017 End: 01-06-2017 Appointment Appointment [facility] Work Phone: Start: 01-06-2017 End: 01-28-2017 Follow Up Appt 1 month Follow Up Appt 1 month [facility] Work Phone: Start: 01-06-2017 End: 01-06-2017 HbA1c *HgA1C [facility] Work Phone: Start: 12-11-2016 End: 01-07-2017 INR Coag RelTime (PPP) *PT/INR - Standing Order [facility] Work Phone: Start: 12-11-2016 End: 01-07-2017 Coagulation factor induced.INR assay in platelet poor plasma *PT/INR - Standing Order [facility] Start: 11-13-2016 End: 11-13-2016 *CBC with Differential *CBC with Differential [facility] Work Phone: Start: 11-13-2016 End: 11-14-2016 *CMP Complete Metabolic Panel *CMP Complete Metabolic Panel [facility] Work Phone: Start: 11-13-2016 End: 11-14-2016 Follow Up Appt 3 months Follow Up Appt 3 months [facility] Work Phone: Start: 11-13-2016 End: 11-14-2016 INR Coag RelTime (PPP) *PT/INR [facility] Work Phone: Start: 11-13-2016 End: 11-14-2016 Lipid panel [AGGREGATE] *Lipid Profile [facility] Work Phone: Start: 11-13-2016 End: 11-14-2016 PSA *PSA (Prostate Specific Antigen) [facility] Work Phone: Start: 11-13-2016 End: 11-13-2016 Appointment Appointment [facility] Start: 11-13-2016 End: 11-13-2016 *CBC with Differential *CBC with Differential [facility] Start: 11-13-2016 End: 11-14-2016 *CMP Complete Metabolic Panel *CMP Complete Metabolic Panel [facility] Start: 11-13-2016 End: 11-14-2016 Coagulation factor induced.INR assay in platelet poor plasma *PT/INR [facility] Start: 11-13-2016 End: 11-14-2016 Follow Up Appt 3 months Follow Up Appt 3 months [facility] Start: 11-13-2016 End: 11-14-2016 Lipid panel [AGGREGATE] *[facility] Start: 11-13-2016 End: 11-14-2016 PSA *PSA (Prostate Specific Antigen) [facility] Start: 11-11-2011 RSV Vaccine (1 - 1-d ose 75+ series) RSV Vaccine (1 - 1-dose 75+ series) [facility] Start: 2001 Pneumococcal Vaccine : 65+ (1 of 1 - PCV) Pneumococcal Vaccine: 65+ (1 of 1 - PCV) [facility] Start: 2001 PNEUMOCOCCAL: 65+ (1 - PCV) PNEUMOCOCCAL: 65+ (1 - PCV) [facility] Start: 2001 PNEUMOVAX AGE 65 AND OVER WITH 5YR LOOKBACK (#1) PNEUMOVAX AGE 65 AND OVER WITH 5YR LOOKBACK (#1) [facility] Start: 11-01-2001 Medicare Annual Well ness Visit Medicare Annual Wellness Visit [facility] Start: 1996 RSV Vaccine (1 - 1-d ose 60+ series) RSV Vaccine (1 - 1-dose 60+ series) [facility] Start: 1986 Pneumococcal Vaccine : 50+ (1 of 1 - PCV) Pneumococcal Vaccine: 50+ (1 of 1 - PCV) [facility] Start: 1986 SHINGRIX VACCINE (1 of 2) GUTIERREZ GRIX VACCINE (1 of 2) [facility] Start: 11-11-1955 Urine microalbumin profile [facility] Start: 1954 Anxiety Screening Anxiety Screening [facility] Start: 1954 Depression Screening Depression Scre ening [facility] Start: 1941 COVID-19 VACCINE (#1) COVID-19 VACCI NE (#1) [facility] Start: 1940 COVID-19 VACCINE (1) COVID-19 VACCIN E (1) [facility] Start: [birth year]-13-1937 COVID-19 VACCINE (#1) COVID-19 VACCI NE (#1) [facility] End: 06-17-2023 ECG COMPLETE ECG COMPLETE ECG Routine S/P AVR 1 Occurrences starting 06/17/2022 until 06/17/2023 [facility] Work Phone: Comment on above: 1 Occurrences starti ng 06/17/2022 until 06/17/2023 End: 06-18-2024 ECG COMPLETE ECG COMPLETE ECG Routine Primary hypertension S/P AVR (aortic valve replacement) 1 Occurrences starting 06/18/2023 until 06/18/2024 [facility] Work Phone: Comment on above: 1 Occurrences starti ng 06/18/2023 until 06/18/2024 End: 08-02-2024 ECG COMPLETE ECG COMPLETE ECG Routine S/P AVR (aortic valve replacement) 1 Occurrences starting 08/03/2023 until 08/02/2024 [facility] Work Phone: Comment on above: 1 Occurrences starti ng 08/03/2023 until 08/02/2024 End: 09-27-2025 ECG COMPLETE ECG COMPLETE ECG Routine S/P AVR (aortic valve replacement) Primary hypertension 1 Occurrences starting 09/27/2024 until 09/27/2025 [facility] Work Phone: Comment on above: 1 Occurrences starti ng 09/27/2024 until 09/27/2025 ECG COMPLETE ECG COMPLETE ECG Routine S/P AVR (aortic valve replacement) 1 Occurrences starting 11/28/2024 [facility] Work Phone: Comment on above: 1 Occurrences starti ng 11/28/2024 End: 04-15-2023 Echocardiography ECHO Cardiology Routine SOB (shortness of breath) 1 Occurrences starting 04/15/2022 until 04/15/2023 [facility] Work Phone: Comment on above: 1 Occurrences starti ng 04/15/2022 until 04/15/2023 End: 06-18-2024 Echocardiography ECHO Cardiology Routine Primary hypertension S/P AVR (aortic valve replacement) 1 Occurrences starting 06/18/2023 until 06/18/2024 [facility] Work Phone: Comment on above: 1 Occurrences starti ng 06/18/2023 until 06/18/2024 End: 08-02-2024 Echocardiography ECHO Cardiology Routine S/P AVR (aortic valve replacement) 1 Occurrences starting 08/03/2023 until 08/02/2024 [facility] Work Phone: Comment on above: 1 Occurrences starti ng 08/03/2023 until 08/02/2024 End: 09-27-2025 Echocardiography ECHO Cardiology Routine S/P AVR (aortic valve replacement) Primary hypertension 1 Occurrences starting 09/27/2024 until 09/27/2025 [facility] Comment on above: 1 Occurrences starti ng 09/27/2024 until 09/27/2025 [facility] Payers Date Payer Category Payer Self-pay [id number] 2001 Medicare MEDICARE MEDICAR E A AND B [id number] 2001-Present [phone] [place] [address] Medicare [id number] 2001 Medicare [id number] 2001 Medicare [id number] Unknown [id number] Unknown [id number] Social History Date Type Detail Facility Start: 08-03-2023 Tobacco smoking status NHIS Never smoked tobacco [facility] Start: 08-12-2021 End: 11-28-2024 Alcohol intake Current drinker of alcohol (finding) [facility] Start: 06-19-2010 History SDOH Alcohol Comment occasionally- 1 glass wine 1-2x weekly [facility] Start: 1935 Sex Assigned At Not on file [facility] Start: 08-02-2021 End: 09-16-2021 Exposure to SARS-CoV-2 (event) Not sure [facility] Start: 06-21-2021 Tobacco smoking status NHIS Unknown if ever smoked [facility] Start: 02-25-2020 Spouse/ Signif icant Other [facility] Start: 1935 Sex Assigned At Male W [facility] Start: 08-28-2022 End: 08-03-2023 History of Social function [facility] Start: 08-28-2022 End: 08-03-2023 Tobacco use panel [facility] National Score (1-100), lower number is lower risk 54 [facility] Start: 08-03-2023 Tobacco use and exposure Smokeless tobacco non-user [facility] Start: 08-03-2023 Alcohol Comment 1 once a week [facility] Start: 11-28-2024 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, 23mm, Model 2700 Functional Status Date Assessment Result Facility 06-08-2014 Are you deaf, or do you have serious difficulty hearing No 06/08/2014 1:27 PM Eden Paulino MA No [facility] 06-08-2014 Are you blind, or do you have serious difficulty seeing, even when wearing glasses No 06/08/2014 1:27 PM Eden Paulino MA No [facility] 06-08-2014 Do you have serious difficulty walking or climbing stairs No 06/08/2014 1:27 PM Eden Paulino MA No [facility] 06-08-2014 Do you have difficul ty dressing or bathing No 06/08/2014 1:27 PM Eden Paulino MA No [facility] 06-08-2014 Because of a physica l, mental, or emotional condition, do you have difficulty doing errands alone such as visiting a physician's office or shopping No 06/08/2014 1:27 PM Eden Paulino MA No [facility] Mental Status Date Assessment Result Facility 06-08-2014 Because of a physica l, mental, or emotional condition, do you have serious difficulty concentrating, remembering, or making decisions No 06/08/2014 1:27 PM Eden Paulino MA No [facility] Clinical Notes 07-12-2010 to 11-28-2024 Shimon Cota MD - 11/28/2024 1:40 PM EDTTelephone Encounter - Leslie Davalos - 03/18/2024 12:40 PM ESTTelephone Encounter - Leslie Davalos - 03/18/2024 12:40 PM ESTPatient Instructions Note Date & Type Note Facility 11-28-2024 Note HNO ID: [id number] Author: SHIMON COTA MD Service: ? Author Type: Physician Type: Progress Notes Filed: 11/28/2024 14:21 Note Text: [facility] Department of Cardiovascular Medicine SECTION OF CARDIOVASCULAR IMAGING OUTPATIENT VISIT DATE 11/28/2024 OUTPATIENT VISIT TYPE ESTABLISHED PRIMARY CARE PHYSICIAN: Bonnie Monteiro ([facility]) [address] [place] [address] REFERRING PHYSICIAN: Shemar Cota [address] [address] CHIEF COMPLAINT: Follow up HISTORY OF PRESENT ILLNESS: Mr. Macias is a 89 year old male who presents today for follow-up visit . Since his last visit, he states that he is doing well. He is taking half of the dose of eliquis once daily. He denies chest pain, shortness of breath, orthopnea, cough, edema, palpitations, PND, lightheadedness or syncope. PAST CARDIAC HISTORY: He has been seen in the past for AVR. She has been on eliquis for DVT. PAST MEDICAL HISTORY Diagnosis Date Aortic stenosis 02/21/2010 Aortic stenosis 02/21/2010 Atrial fibrillation (HCC) 07/12/2010 post op 07/2011 BPH (benign prostatic hyperplasia) CAD (coronary artery disease), mcgrath coronary artery 07/04/2010 Hyperlipidemia 07/04/2010 Hypertension 08/08/2010 PE (pulmonary embolism) post op 07/2011 SBE (subacute bacterial endocarditis) prophylaxis candidate PAST SURGICAL HISTORY Procedure Laterality Date PAST SURGICAL HISTORY OF 07/02/2010 AVR #23 CE TRURL ELECTROSURG RESCJ PROSTATE BLEED COMPLETE 2006 TURP SOCIAL HISTORY Social History Tobacco Use Smoking status: Never Smokeless tobacco: Never Substance Use Topics Alcohol use: Yes Comment: occ. Drug use: No FAMILY HISTORY Problem Relation Age of Onset Stroke Mother in her 80's Coronary Artery Disease Mother Heart Father at age 80 - [place] Coronary Artery Disease Father None Brother Living - age 76 Heart Brother Living - age 83 - h/o MV repair and CABG Diabetes Brother Living - age 62 Cancer Sister at age 70 - oral cancer other (Unknown) Sister at age 72 ALLERGIES: ALLERGIES No Known Allergies MEDICATIONS: losartan (COZAAR) 25 mg tablet TAKE ONE TABLET BY MOUTH ONCE DAILY hydroCHLOROthiazide (HYDRODIURIL, ESIDRIX) 25 mg tablet Take 1 tablet by mouth once daily. apixaban (ELIQUIS) 2.5 mg tab tab(s) Take 1 tablet by mouth twice daily. levETIRAcetam (KEPPRA) 500 mg tablet Take 1 tablet by mouth twice daily. No data to display REVIEW OF SYSTEMS: PHYSICAL EXAMINATION: BP 144/85 Pulse 64 Ht 172.7 cm (5' 8) Wt 75.3 kg (166 lb) SpO2 98% BMI 25.24 kg/m? General: Well appearing, in no acute distress, speaking in complete sentences. Neck: No jugular venous distention, no carotid bruits, carotids have a normal upstroke, no palpable thyromegaly. Lungs: Clear to auscultation bilaterally, no wheezing or rhonchi. Heart: irregular rhythm, soft ejection murmur. Abdomen: Soft, nontender, bowel sounds normal, no palpable organomegaly, no bruits. Extremities: No peripheral edema . Grade 2/4 distal pulses bilaterally. Neuro: Oriented to person, place and time, alert, cooperative, gait coordinated. CARDIOVASCULAR MEDICINE TESTING: I have personally reviewed the Electrocardiogram and Echocardiogram. Last ECHO Result Conclusion ECHO Collected: 11/28/2024 8:39 AM (Final result) Impression: CONCLUSIONS: - Exam indication: Routine surveillance of prosthetic valve (>3yrs) - The left ventricle is normal in size. There is concentric left ventricular hypertrophy. Left ventricular systolic function is normal. EF = 57 ? 5% (2D biplane) - The right ventricle is normal in size. Right ventricular systolic function is normal. - The left atrial cavity is mildly dilated. - There is moderate (2+) tricuspid valve regurgitation. 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 There is trace (trace - 1+) aortic valve regurgitation. The peak gradient is 48 mmHg, the mean gradient is 19 mmHg and the dimensionless valve index is 0.33. Prior peak/mean AV gradients 44/26 mmHg. - Estimated right ventricular systolic pressure is likely underestimated due to a weak or incomplete tricuspid regurgitation signal and is, at least, 33 mmHg consistent with normal pulmonary artery pressures. Estimated right atrial pressure is 3 mmHg based on IVC assessment. BP written is taken from clinic visit- similar to prior study. - Exam was compared with the prior CC echocardiographic exam performed on 08/03/2023. More TR seen on today's exam. Stable AV Gradients. * * * Final * * * Last EKG Result Conclusion ECG COMPLETE Collected: 11/28/2024 9:40 AM (Preliminary result) Impression: ATRIAL FIBRILLATION LEFT AXIS DEVIATION INFERIOR MYOCARDIAL INFARCTION , AGE UNDETERMIN (more content not included)... [facility] 11-28-2024 History of Presen t illness Narrative Images from the original note were not included. [facility] Department of Cardiovascular Medicine SECTION OF CARDIOVASCULAR IMAGING OUTPATIENT VISIT DATE 11/28/2024 OUTPATIENT VISIT TYPE ESTABLISHED PRIMARY CARE PHYSICIAN: Bonnie Monteiro ([facility]) [address] [place] [address] REFERRING PHYSICIAN: Shemar Cota [address] [facility] [address] CHIEF COMPLAINT: Follow up HISTORY OF PRESENT ILLNESS: Mr. Macias is a 89 year old male who presents today for follow-up visit . Since his last visit, he states that he is doing well. He is taking half of the dose of eliquis once daily. He denies chest pain, shortness of breath, orthopnea, cough, edema, palpitations, PND, lightheadedness or syncope. PAST CARDIAC HISTORY: He has been seen in the past for AVR. She has been on eliquis for DVT. 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 Drug use: No FAMILY HISTORY Problem Relation Age of Onset Stroke Mother in her 80's Coronary Artery Disease Mother Heart Father at age 80 - [place] Coronary Artery Disease Father None Brother Living - age 76 Heart Brother Living - age 83 - h/o MV repair and CABG Diabetes Brother Living - age 62 Cancer Sister at age 70 - oral cancer other (Unknown) Sister at age 72 ALLERGIES: ALLERGIES No Known Allergies MEDICATIONS: losartan (COZAAR) 25 mg tablet TAKE ONE TABLET BY MOUTH ONCE DAILY hydroCHLOROthiazide (HYDRODIURIL, ESIDRIX) 25 mg tablet Take 1 tablet by mouth once daily. apixaban (ELIQUIS) 2.5 mg tab tab(s) Take 1 tablet by mouth twice daily. levETIRAcetam (KEPPRA) 500 mg tablet Take 1 tablet by mouth twice daily. No data to display REVIEW OF SYSTEMS: PHYSICAL EXAMINATION: BP 144/85 Pulse 64 Ht 172.7 cm (5' 8) Wt 75.3 kg (166 lb) SpO2 98% BMI 25.24 kg/m General: Well appearing, in no acute distress, speaking in complete sentences. Neck: No jugular venous distention, no carotid bruits, carotids have a normal upstroke, no palpable thyromegaly. Lungs: Clear to auscultation bilaterally, no wheezing or rhonchi. Heart: irregular rhythm, soft ejection murmur. Abdomen: Soft, nontender, bowel sounds normal, no palpable organomegaly, no bruits. Extremities: No peripheral edema . Grade 2/4 distal pulses bilaterally. Neuro: Oriented to person, place and time, alert, cooperative, gait coordinated. CARDIOVASCULAR MEDICINE TESTING: I have personally reviewed the Electrocardiogram and Echocardiogram. Last ECHO Result Conclusion ECHO Collected: 11/28/2024 8:39 AM (Final result) Impression: CONCLUSIONS: - Exam indication: Routine surveillance of prosthetic valve (>3yrs) - The left ventricle is normal in size. There is concentric left ventricular hypertrophy. Left ventricular systolic function is normal. EF = 57 5% (2D biplane) - The right ventricle is normal in size. Right ventricular systolic function is normal. - The left atrial cavity is mildly dilated. - There is moderate (2+) tricuspid valve regurgitation. 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 There is trace (trace - 1+) aortic valve regurgitation. The peak gradient is 48 mmHg, the mean gradient is 19 mmHg and the dimensionless valve index is 0.33. Prior peak/mean AV gradients 44/26 mmHg. - Estimated right ventricular systolic pressure is likely underestimated due to a weak or incomplete tricuspid regurgitation signal and is, at least, 33 mmHg consistent with normal pulmonary artery pressures. Estimated right atrial pressure is 3 mmHg based on IVC assessment. BP written is taken from clinic visit- similar to prior study. - Exam was compared with the prior [facility] echocardiographic exam performed on 08/03/2023. More TR seen on today's exam. Stable AV Gradients. * * * Final * * * Last EKG Result Conclusion ECG COMPLETE Collected: 11/28/2024 9:40 AM (Preliminary result) Impression: ATRIAL FIBRILLATION LEFT AXIS DEVIATION INFERIOR MYOCARDIAL INFARCTION , AGE UNDETERMINED ABNORMAL ECG IMPRESSION: Mr. Macias is a 89 year old male with remote Hx of AVR, stable and new atrial fibrillation. No symptoms. He has hyperlipidemia. PLAN AND RECOMMENDATIONS: 1- Discussed risk of stroke and emphasize the importance of taking eliquis as prescribed: 2.5 mg twice daily. 2- Also offered statin for his cholesterol but he is not interested at this time. 3- He is schedule to come back in July 2025 but he should check with his primary MD with an ECG. CONTACT INFORMATION: Shemar Cota MD documented in this encounter [facility] 03-18-2024 Telephone encounter Note Call from pharmacy requesting refill. Requested Prescriptions Pending Prescriptions Disp Refills losartan (COZAAR) 25 mg tablet [Pharmacy Med Name: Losartan Potassium Oral Tablet 25 MG] 120 tablet 0 Sig: TAKE ONE TABLET BY MOUTH ONCE DAILY Patient last seen 08/03/23 Leslie Davalos [facility] 03-18-2024 Miscellaneous Notes Call from pharmacy requesting refill. Requested Prescriptions Pending Prescriptions Disp Refills losartan (COZAAR) 25 mg tablet [Pharmacy Med Name: Losartan Potassium Oral Tablet 25 MG] 120 tablet 0 Sig: TAKE ONE TABLET BY MOUTH ONCE DAILY Patient last seen 08/03/23 Leslie Davalos documented in this encounter [facility] 08-03-2023 History of Presen t illness Narrative Images from the original note were not included. [facility] Department of Cardiovascular Medicine SECTION OF CARDIOVASCULAR IMAGING OUTPATIENT VISIT DATE August 03, 2023 OUTPATIENT VISIT TYPE ESTABLISHED PRIMARY CARE PHYSICIAN: Bonnie Monteiro ([facility]) [address] [place] [address] REFERRING PHYSICIAN: No referring provider defined for this encounter. CHIEF COMPLAINT: Follow up HISTORY OF PRESENT ILLNESS: Mr. Macias is a 87 year old male who presents today for follow-up visit . Since his last visit, he states that is doing well, no symptoms. He is taking Elquis only once daily. He takes his BP at home and has been normal. PAST CARDIAC HISTORY: He has been seen in the past for HTN, AVR, DVT. Shemar Cota MD PAST MEDICAL HISTORY Diagnosis Date Aortic stenosis 02/21/2010 Aortic stenosis 02/21/2010 Atrial fibrillation (HCC) 07/12/2010 post op 07/2011 BPH (benign prostatic hyperplasia) CAD (coronary artery disease), mcgrath coronary artery 07/04/2010 Hyperlipidemia 07/04/2010 Hypertension 08/08/2010 PE (pulmonary embolism) post op 07/2011 SBE (subacute bacterial endocarditis) prophylaxis candidate PAST SURGICAL HISTORY Procedure Laterality Date PAST SURGICAL HISTORY OF 07/02/2010 AVR #23 CE TRURL ELECTROSURG RESCJ PROSTATE BLEED COMPLETE 2005 TURP SOCIAL HISTORY Social History Tobacco Use Smoking status: Never Smokeless tobacco: Never Substance Use Topics Alcohol use: Yes Comment: 1 once a week Drug use: No FAMILY HISTORY Problem Relation Age of Onset Stroke Mother in her 80's Coronary Artery Disease Mother Heart Father at age 80 - [place] Coronary Artery Disease Father None Brother Living - age 76 Heart Brother Living - age 83 - h/o MV repair and CABG Diabetes Brother Living - age 62 Cancer Sister at age 70 - oral cancer other (Unknown) Sister at age 72 ALLERGIES: ALLERGIES No Known Allergies MEDICATIONS: hydroCHLOROthiazide (HYDRODIURIL, ESIDRIX) 25 mg tablet Take 1 tablet by mouth once daily. losartan (COZAAR) 25 mg tablet Take 1 tablet by mouth once daily. apixaban (ELIQUIS) 2.5 mg tab tab(s) Take 1 tablet by mouth twice daily. (Patient taking differently: Take 2.5 mg by mouth once daily.) levETIRAcetam (KEPPRA) 500 mg tablet Take 1 tablet by mouth twice daily. (Patient taking differently: Take 250 mg by mouth daily at bedtime.) REVIEW OF SYSTEMS: See HPI. PHYSICAL EXAMINATION: BP 161/81 Pulse 63 Ht 170.5 cm (5' 7.13) Wt 79.4 kg (175 lb) SpO2 97% BMI 27.31 kg/m General: Well appearing, in no acute distress, speaking in complete sentences. Lungs: Clear to auscultation bilaterally, no wheezing or rhonchi. Heart: Regular rhythm, PMI not displaced, S1, S2 normal, no S3, no S4, no heaves, no rub and soft systolic murur Abdomen: non tender, bowel sounds normal, no palpable organomegaly, no bruits. Extremities: No peripheral edema . Grade 2/4 distal pulses bilaterally. Neuro: Oriented to person, place and time, alert, cooperative, gait coordinated. CARDIOVASCULAR MEDICINE TESTING: Last ECHO Result Conclusion ECHO Collected: 08/03/2023 10:59 AM (Final result) Impression: CONCLUSIONS: - Exam indication: Hx: AV replacement - The left ventricle is normal in size. There is moderate concentric left ventricular hypertrophy. Left ventricular systolic function is normal. EF = 58 5% (2D biplane) Normal left ventricular diastolic function. - The right ventricle is normal in size. Right ventricular systolic function is normal. - The right atrial cavity is mildly dilated. 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 There is trace aortic valve regurgitation. The peak gradient is 44 mmHg, the mean gradient is 26 mmHg and the dimensionless valve index is 0.30. Prior Pk/Mn gradient 41/21mmHg. - Estimated right ventricular systolic pressure is not reported due to an insufficient tricuspid regurgitation signal. Estimated right atrial pressure is 3 mmHg based on IVC assessment. - There are no significant valvular abnormalities. - Exam was compared with the prior echocardiographic exam performed on 08/28/2022; no major changes. * * * Final * * * I have personally reviewed the Electrocardiogram and Echocardiogram. Last EKG Result Conclusion ECG COMPLETE Collected: 08/03/2023 9:36 AM (Preliminary result) Impression: NORMAL SINUS RHYTHM LEFT AXIS DEVIATION ABNORMAL ECG IMPRESSION: Mr. Macias is a 87 year old male s/p AVR in 2010, HTN. Echo and ECG stable. No symptoms. Elevated BP today. Increasing losartan discussed. PLAN AND RECOMMENDATIONS: Eliquis should be taken twice daily If BP remain elevated increase Losartan to 50mg a day Follow up in 1 year with echo. CONTACT INFORMATION: Shemar Cota MD documented in this encounter [facility] 08-28-2022 History of Presen t illness Narrative Images from the original note were not included. [facility] Department of Cardiovascular Medicine SECTION OF CARDIOVASCULAR IMAGING OUTPATIENT VISIT DATE August 28, 2022 OUTPATIENT VISIT TYPE ESTABLISHED PRIMARY CARE PHYSICIAN: Bonnie Monteiro ([facility]) [address] [place] [address] CHIEF COMPLAINT: Follow up HISTORY OF PRESENT [...] (benign prostatic hyperplasia) CAD (coronary artery disease), mcgrath coronary artery 07/04/2010 Hyperlipidemia 07/04/2010 Hypertension 08/08/2010 [...] Mother Heart Father at age 80 - [place] Coronary Artery Disease Father None Brother Living [...] Pulse (!) 56 Ht 165.1 cm (5' 5) Wt 78 kg (172 lb) SpO2 98% [...] a statin. CONTACT INFORMATION: Shemar Cota MD, [facility] documented in this encounter [facility] 04-15-2022 History of Presen t illness Narrative Ho documented in this encounter [facility] 01-23-2022 Miscellaneous Notes Call from patient requesting refill. Requested Prescriptions Pending Prescriptions Disp Refills hydroCHLOROthiazide (HYDRODIURIL, ESIDRIX) 25 mg tablet 60 tablet 0 Sig: Take 1 tablet by mouth once daily. Patient last seen 07/15/21 Faby Bang documented in this encounter [facility] 09-16-2021 History of Presen t illness Narrative Images from the original note were not included. [facility] Department of Cardiovascular Medicine SECTION [...] DVT. 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 Anticoagulated with coumadin for 3 months. __Acute left lower extremity DVT in 2013. Anticoagulated on coumadin until 2016, discontinued by cardiology as patient reduced dose frequently himself due to bruising. 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 He has been treated with apixaban since presenting with ?-new DVT on 06/19/2021. Do not have those images for review. 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 Currently it is unclear if he had an acute DVT 06/19/2021, so would endorse that he that he complete 3 months of therapeutic anticoagulation. Following that will reassess to determine whether he should continue low dose of apixaban 2.5mg bid for prevention of future VTE events. Recommendations: __Will obtain duplex US images from [facility]. Need to review / compare to current [...] to get apixaban sent to him from [employer] without cost. Admits that he has not been using compression stockings -- once in awhile uses while driving. Denies any signs of bleeding including epistaxis, hemoptysis, hematemesis, BRBPR, melena, or hematuria. Reviewed venous US imaging with him. Objective: BP 163/74 (BP Site: Left Arm) Pulse (!) 58 Ht 174 cm (5' 8.5) Wt 78.8 kg (173 lb 12.8 oz) [...] DVT. 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 Anticoagulated with coumadin for 3 months. __Acute left lower extremity DVT in 2013. Anticoagulated on coumadin until 2016, discontinued by cardiology as patient reduced dose frequently himself due to bruising. 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 He has been treated with apixaban since presenting with ?-new DVT on 06/19/2021. 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 Unclear if he had an acute DVT [...] 1 year and additionally as needed. Andreea Stanley MD CC: Bonnie Monteiro MD documented in this encounter [facility] 08-12-2021 Instructions Leo Hudson MD - 08/12/2021 3:14 PM EDT Great seeing you today - We recommend that you take eliquis 5 mg twice a day to complete 3 months of treatment (until September 16, 2021). - After that you can go down to Eliquis 2.5 mg twice a day. documented in this encounter [facility] 08-12-2021 History of Presen t illness Narrative Images from the original note were not included. [facility] Department of Cardiovascular Medicine SECTION OF VASCULAR MEDICINE OUTPATIENT VISIT DATE August 12, 2021 OUTPATIENT VISIT TYPE CONSULTATION Consult regarding: DVT/Thrombophlebitis. Consult requested by: Shimon Cota My final recommendations will be communicated back to the requesting physician by way of the shared medical record or by letter. Primary care physician: Bonnie Monteiro MD History of present illness: 85yo [...] calf pain after 3.[address] from [place] to [place]. Presented to [facility] and was diagnosed with acute DVT. He was bridged to coumadin with lovenox. Continued coumadin until 2016 and was then stopped. He presented to [facility] on 06/19/2021 with pain along the medial aspect of the left leg that had been persistent for several days. He had an ultrasound that showed superficial thrombophlebitis and DVTs to femoral and popliteal veins, all in the left leg with acute and chronic. He was provided with a started pack [...] (benign prostatic hyperplasia) CAD (coronary artery disease), mcgrath coronary artery (07/04/2010) Hyperlipidemia (07/04/2010), Hypertension (08/08/2010), [...] Adult) Pulse 72 Ht 174 cm (5' 8.5) Wt 79.9 kg (176 lb 1.6 oz) [...] DVT. 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 Anticoagulated with coumadin for 3 months. __Acute left lower extremity DVT in 2013. Anticoagulated on coumadin until 2016, discontinued by cardiology as patient reduced dose frequently himself due to bruising. 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 He has been treated with apixaban since presenting with ?-new DVT on 06/19/2021. Do not have those images for review. 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 In terms of provoking factors, he endorses frequent drives to [facility] and [place], and prolonged periods working with [employer]-lifts. Currently it is unclear if he had an acute DVT 06/19/2021, so would endorse that he that he complete 3 months of therapeutic anticoagulation. Following that will reassess to determine whether he should continue low dose of apixaban 2.5mg bid for prevention of future VTE events. Recommendations: __Will obtain duplex US images from [facility]. Need to review / compare to current [...] August 12, 2021 TIME: 7:49 PM PAGER: [phone] Note: Case to be discussed with Vascular Medicine Staff. Recommendations are not final until addended by Staff. [facility] STAFF PHYSICIAN NOTE OF PERSONAL INVOLVEMENT [...] of the patient's care. STAFF PHYSICIAN: Andreea Stanley MD DATE OF SERVICE: August 12, 2021 TIME OF SERVICE: 2:13 PM documented in this encounter [facility] 07-12-2010 History of Past i llness Narrative Problem Noted Date Resolved Date Pericardial effusion [...] with Dr. Pancho Hardy. He is a [employer] & refuses blood products. The morning of 07/12/10 he used a mechanical cuff as per his usual routine to check his blood pressure & noticed that his HR was in the 120's & was irregular - he denies symptoms but went to the [facility] ER. EKG showed A-fib with HR ~120's. [...] IV cardizem & readmitted 07/12/10 back to [facility] for further care. 07/13 to DCCV 07/12 [...] 06/28/2010 06/01/2012 Overview: Age 74 lives in [place], [place] with spouse. Will follow up with local PCP Dr. Mock and Dr. Cota at [facility]. Dr. Mock will monitor PT/INR at discharge. [...] of this encounter (statuses as of 08/13/2021) [facility] History of Past illness Narrative* Problem Noted [...] with Dr. Pancho Hardy. He is a [employer] & refuses blood products. The morning of 07/12/10 he used a mechanical cuff as per his usual routine to check his blood pressure & noticed that his HR was in the 120's & was irregular - he denies symptoms but went to the [facility] ER. EKG showed A-fib with HR ~120's. [...] IV cardizem & readmitted 07/12/10 back to [facility] for further care. 07/13 to DCCV 07/12 [...] 06/28/2010 06/01/2012 Overview: Age 74 lives in [place], [place] with spouse. Will follow up with local PCP Dr. Mock and Dr. Cota at [facility]. Dr. Mock will monitor PT/INR at discharge. [...] of this encounter (statuses as of 09/23/2021) [facility] History of Past illness Narrative* Problem Noted [...] & HPL who was recently d/c from [facility] on 07/07/2010fter aortic valve replacement surgery on 07/02/[address] Pancho Hardy. He is a [employer] & refuses blood products. The morning of 07/12/10 he used a mechanical cuff as per his usual routine to check his blood pressure & noticed that his HR was in the 120's & was irregular - he denies symptoms but went to the [facility] ER. EKG showed A-fib with HR ~120's. [...] IV cardizem & readmitted 07/12/10 back to [facility] for further care. 07/13 to DCCV 07/12 [...] 06/28/2010 06/01/2012 Overview: Age 74 lives in [place], [place] with spouse. Will follow up with local PCP Dr. Mock and Dr. Cota at [facility]. Dr. Mock will monitor PT/INR at discharge. [...] of this encounter (statuses as of 01/23/2022) [facility] History of Past illness Narrative* Problem Noted [...] with Dr. Pancho Hardy. He is a [employer] & refuses blood products. The morning of 07/12/10 he used a mechanical cuff as per his usual routine to check his blood pressure & noticed that his HR was in the 120's & was irregular - he denies symptoms but went to the [facility] ER. EKG showed A-fib with HR ~120's. [...] IV cardizem & readmitted 07/12/10 back to [facility] for further care. 07/13 to DCCV 07/12 [...] 06/28/2010 06/01/2012 Overview: Age 74 lives in [place], [place] with spouse. Will follow up with local PCP Dr. Mock and Dr. Cota at [facility]. Dr. Mock will monitor PT/INR at discharge. [...] of this encounter (statuses as of 04/15/2022) [facility] History of Past illness Narrative* Problem Noted [...] with Dr. Pancho Hardy. He is a [employer] & refuses blood products. The morning of 07/12/10 he used a mechanical cuff as per his usual routine to check his blood pressure & noticed that his HR was in the 120's & was irregular - he denies symptoms but went to the [facility] ER. EKG showed A-fib with HR ~120's. [...] IV cardizem & readmitted 07/12/10 back to [facility] for further care. 07/13 to DCCV 07/12 [...] 06/28/2010 06/01/2012 Overview: Age 74 lives in [place], [place] with spouse. Will follow up with local PCP Dr. Mock and Dr. Cota at [facility]. Dr. Mock will monitor PT/INR at discharge. [...] of this encounter (statuses as of 06/17/2022) [facility] History of Past illness Narrative* Problem Noted Date Resolved Date Atrial fibrillation 07/12/2010 08/30/2022 Overview: Readmitted as hospital transfer from [facility] with a-fib (HR 120's). Per patient this [...] - No increase in pericardial effusion. Per [facility] radiology read of OSH CT scan - [...] with Dr. Pancho Hardy. He is a [employer] & refuses blood products. The morning of 07/12/10 he used a mechanical cuff as per his usual routine to check his blood pressure & noticed that his HR was in the 120's & was irregular - he denies symptoms but went to the [facility] ER. EKG showed A-fib with HR ~120's. [...] IV cardizem & readmitted 07/12/10 back to [facility] for further care. 07/13 to DCCV 07/12 [...] 06/28/2010 06/01/2012 Overview: Age 74 lives in [place], [place] with spouse. Will follow up with local PCP Dr. Mock and Dr. Cota at [facility]. Dr. Mock will monitor PT/INR at discharge. [...] of this encounter (statuses as of 08/30/2022) [facility] History of Past illness Narrative* Problem Noted Date Diagnosed Date Resolved Date Atrial fibrillation 07/12/2010 08/31/19 Overview: Readmitted as hospital transfer from [facility] with a-fib (HR 120's). Per patient this [...] be drawn on Thursday Pericardial effusion 07/12/2010 013 Overview: 07/[address] report, patient has a 1.5cm posterior pericardial effusion. VS stable & no other physiological signs of tamponade. Echo today- no increase in pericardial effusion. Monitor now on heparin IV and coumadin. No need to repeat per Dr. Hoff. Recommend repeat after discharge. PE (pulmonary embolism) 07/12/201008/03 Overview: Per OSH CT report, patient has [...] with Dr. Pancho Hardy. He is a [employer] & refuses blood products. The morning of 07/12/10 he used a mechanical cuff as per his usual routine to check his blood pressure & noticed that his HR was in the 120's & was irregular - he denies symptoms but went to the [facility] ER. EKG showed A-fib with HR ~120's. [...] IV cardizem & readmitted 07/12/10 back to [facility] for further care. 07/13 to DCCV 07/12 [...] -Will discharge on coumadin Stress hyperglycemia 07/03/2010 011 Overview: Requiring minimal coverage, will dc Atelectasis 07/03/2010 07/12/2010 Overview: PEP / OOB to chair TID for meals, and ambulate in the halls, xray prior to dc Pleural effusion 07/03/2010 06/01/2012 Overview: On RA. No c/o dyspnea. CXR 07/13: small bilateral pleural effusions and mild atelectasis; Discharge on lasix. Encourage C/DB/PEP and OOB/ambulation. discharge planning 06/28/2010 3 Overview: Age 74 lives in [place], [place] with spouse. Will follow up with local PCP Dr. Mock and Dr. Cota at [facility]. Dr. Mock will monitor PT/INR at discharge. [...] as of this encounter (statuses as of 06/18/2023) [facility] History of Past illness Narrative* Problem Noted Date Diagnosed Date Resolved Date Atrial fibrillation 07/12/2010 08/31/19 23 Overview: Readmitted as hospital transfer from [facility] with a-fib (HR 120's). Per patient this [...] be drawn on Thursday Pericardial effusion 07/12/2010 013 Overview: 07/[address] report, patient has a 1.5cm posterior pericardial effusion. VS stable & no other physiological signs of tamponade. Echo today- no increase in pericardial effusion. Monitor now on heparin IV and coumadin. No need to repeat per Dr. Hoff. Recommend repeat after discharge. PE (pulmonary embolism) 07/12/201008/03 Overview: Per OSH CT report, patient has [...] with Dr. Pancho Hardy. He is a [employer] & refuses blood products. The morning of 07/12/10 he used a mechanical cuff as per his usual routine to check his blood pressure & noticed that his HR was in the 120's & was irregular - he denies symptoms but went to the [facility] ER. EKG showed A-fib with HR ~120's. [...] IV cardizem & readmitted 07/12/10 back to [facility] for further care. 07/13 to DCCV 07/12 [...] -Will discharge on coumadin Stress hyperglycemia 07/03/2010 011 Overview: Requiring minimal coverage, will dc Atelectasis 07/03/2010 07/12/2010 Overview: PEP / OOB to chair TID for meals, and ambulate in the halls, xray prior to dc Pleural effusion 07/03/2010 06/01/2012 Overview: On RA. No c/o dyspnea. CXR 07/13: small bilateral pleural effusions and mild atelectasis; Discharge on lasix. Encourage C/DB/PEP and OOB/ambulation. discharge planning 06/28/2010 3 Overview: Age 74 lives in [place], [place] with spouse. Will follow up with local PCP Dr. Mock and Dr. Cota at [facility]. Dr. Mock will monitor PT/INR at discharge. 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 Anticoagulation management encounter Encounter for therapeutic drug monitoring documented in this encounter [facility] note* Diagnosis Primary hypertension Unspecified essential hypertension documented in this encounter [facility] note* Diagnosis SOB (shortness of breath)- Primary Shortness of breath documented in this encounter [facility] note* Diagnosis S/P AVR- Primary Heart valve replaced by other means documented in this encounter [facility] note* Diagnosis S/P AVR (aortic valve replacement)- Primary Heart valve replaced by other means Primary hypertension Unspecified essential hypertension Hypercholesterolemia Pure hypercholesterolemia documented in this encounter [facility] noteNo assessment information availableWMercy Health [facility] Work Phone: Evaluation note* Diagnosis Primary hypertension- Primary Unspecified essential hypertension S/P AVR (aortic valve replacement) Heart valve replaced by other means documented in this encounter [facility] note* Diagnosis S/P AVR (aortic valve replacement)- Primary Heart valve replaced by other means Primary hypertension Unspecified essential hypertension Recurrent deep vein thrombosis (DVT) (HCC) documented in this encounter [facility] note* Diagnosis Primary hypertension Unspecified essential hypertension documented in this encounter [facility] note* Diagnosis Primary hypertension- Primary Unspecified essential hypertension S/P AVR (aortic valve replacement) Heart valve replaced by other means documented in this encounter [facility] note* Diagnosis S/P AVR (aortic valve replacement)- Primary Heart valve replaced by other means Persistent atrial fibrillation (HCC) Atrial fibrillation documented in this encounter [facility] for referral (narrative)* Outpatient Procedure (Routine) - Closed Specialty Diagnoses / Procedures Referred By Morgan t Referred To Contact [facility] Diagnoses 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 Recurrent deep vein thrombosis (DVT) (HCC) Acute deep vein thrombosis (DVT) of left femoral vein (HCC) Procedures US LEG VEIN DVT UNL VAS LAB DUP-SCAN XTR VEINS UNILATERAL/LIMITED STUDY Andreea Stanley MD [address] [place] [address] [facility] [id number] [place] [address] Referral ID Status Reason Start Date Expiration Date V isits Requested Visits Authorized [id number] Closed Auto-Generate d Referral 08/12/2021 08/12/2022 1 1 [facility] for referral (narrative)* Outpatient Procedure (Routine) - Authorized Specialty Diagnoses / Procedures Referred By Contac t Referred To Contact [facility] Diagnoses SOB (shortness of breath) Procedures ECHO ECHO TTHRC R-T 2D W/WOM-MODE COMPL SPEC&Shimon Thomas MD [address] [place] [address] [address] [place] [address] Referral ID Status Reason Start Date Expiration Date Visits Requested Visits Authorized [id number] Authorized Auto-Generat ed Referral 04/15/2023 1 1 [facility] for referral (narrative)* Outpatient Procedure (Routine) - Authorized Specialty Diagnoses / Procedures [facility] To [facility] Diagnoses S/P AVR Procedures ECG COMPLETE ECG ROUTINE ECG W/LEAST 12 LDS W/I&R Shimon Cota MD [address] [place] [address] [address] [address] [place] [address] Referral ID Status Reason Start Date Expiration Date Visits Requested Visits Authorized [id number] Authorized Auto-Generat ed Referral 06/17/2022 06/17/2023 1 1 [facility] for referral (narrative)* Outpatient Procedure (Routine) - Pending Review Specialty Diagnoses / Procedures [facility] Referred To Contact [facility] Diagnoses Primary hypertension S/P AVR (aortic valve replacement) Procedures ECHO ECHO TTHRC R-T 2D W/WOM-MODE COMPL SPEC&Shimon Thomas MD [address] [address] [address] [address] [address] [place] [id number] Referral ID Status Reason Start Date Expiration Date Visits Requested Visits Authorized [id number] Pending Review Auto-Generat ed Referral 06/18/2023 06/17/2024 1 1 * Outpatient Procedure (Routine) - Authorized Specialty Diagnoses / Procedures Referred By Contac t Referred To Contact [facility] Diagnoses Primary hypertension S/P AVR (aortic valve replacement) Procedures ECG COMPLETE ECG ROUTINE ECG W/LEAST 12 LDS W/I&R Shimon Cota MD [address] [place] [address] [facility] [place] [address] Referral ID Status Reason Start Date Expiration Date Visits Requested Visits Authorized [id number] Authorized Auto-Generat ed Referral 06/18/2023 06/17/2024 1 1 [facility] for referral (narrative)* Outpatient Procedure (Routine) - Pending Review Specialty Diagnoses / Procedures Referred By Contac t Referred To Contact [facility] Diagnoses S/P AVR (aortic valve replacement) Procedures ECHO ECHO TTHRC R-T 2D W/WOM-MODE COMPL SPEC&COLR D Shimon Cota MD [address] [place] [address] [id number] [place] [address] Referral ID Status Reason Start Date Expiration Date Visits Requested Visits Authorized [id number] Pending Review Auto-Generat ed Referral 08/03/2023 08/02/2024 1 1 * Outpatient Procedure (Routine) - Pending Review Specialty Diagnoses / Procedures Referred By Contac t Referred To Contact [facility] Diagnoses S/P AVR (aortic valve replacement) Procedures ECG COMPLETE ECG ROUTINE ECG W/LEAST 12 LDS W/I&R Shimon Cota MD [address] [place] [address] [address] Referral ID Status Reason Start Date Expiration Date Visits Requested Visits Authorized [id number] Pending Review Auto-Generat ed Referral 08/03/2023 08/02/2024 1 1 * Transition of Care (Routine) - Ref Not Required Specialty Diagnoses / Procedures Referred By Contac t Referred To Contact [facility] Procedures CARDIOVASCULAR MEDICINE OP FOLLOW UP APPT ORDER Shimon Cota MD [address] [address] [place] [address] Referral ID Status Reason Start Date Expiration Date Visits Requested Visits Authorized [id number] Ref Not Required PCP Requested Referral 05/04/2024 08/02/2024 1 1 [facility] Summary Purpose Family History No Family History Records Found Relationship Condition Age at Onset Recorded Date/T agnieszka mother Cerebrovascular accident (CVA) Unknown Hypertension Unknown father Cerebrovascular accident (CVA) Unknown Advance Directives No Advanced Directives Records FoundDocuments on File Type Date Recorded 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 Advance Directive(s) 07/04/2010 9:53 PM Documents on File Type Date Recorded 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 Advance Directive(s) 07/04/2010 9:53 PM Advance Directive Response Recorded Date/ Time Advance Directives Yes May 26, 2017 8:52am Living Will No June 19 11:55am 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 Yes June 19, 2021 11:55am Chief Complaint and Reason for Visit Chief Complaint LLE EDEMA, HX DVT Additional Source Comments (unrecognized sect ion and content) No Status Records FoundNo Status Records FoundNo Status Records Found INFORMATION SOURCE (unrecogn ized section and content) DATE CREATED [facility] DATE CREATED AUTHOR AUTHOR'S ORGANIZ ATION 12/04/2024 [facility] DATE CREATED AUTHOR AUTHOR'S ORGANIZ ATION 12/18/2024 [facility] Source Comments (unrecognize d section and content) In the event this informatio n is protected by the Federal Confidentiality of Alcohol and Drug Abuse Patient Records regulations: The Federal rules restrict any use of the information to criminally investigate or prosecute any alcohol or drug abuse patient.[facility] the event this information is protected by the Federal Confidentiality of Alcohol and Drug Abuse Patient Records regulations: The Federal rules restrict any use of the information to criminally investigate or prosecute any alcohol or drug abuse patient.[facility] Center[facility] the event this information is protected by the Federal Confidentiality of Alcohol and Drug Abuse Patient Records regulations: The Federal rules restrict any use of the information to criminally investigate or prosecute any alcohol or drug abuse patient.[facility] Center[facility] the event this information is protected by the Federal Confidentiality of Alcohol and Drug Abuse Patient Records regulations: The Federal rules restrict any use of the information to criminally investigate or prosecute any alcohol or drug abuse patient.[facility] CenterIn the event this information is protected by the Federal Confidentiality of Alcohol and Drug Abuse Patient Records regulations: The Federal rules restrict any use of the information to criminally investigate or prosecute any alcohol or drug abuse patient.[facility] CenterIn the event this information is protected by the Federal Confidentiality of Alcohol and Drug Abuse Patient Records regulations: The Federal rules restrict any use of the information to criminally investigate or prosecute any alcohol or drug abuse patient.[facility] CenterIn the event this information is protected by the Federal Confidentiality of Alcohol and Drug Abuse Patient Records regulations: The Federal rules restrict any use of the information to criminally investigate or prosecute any alcohol or drug abuse patient.[facility] CenterIn the event this information is protected by the Federal Confidentiality of Alcohol and Drug Abuse Patient Records regulations: The Federal rules restrict any use of the information to criminally investigate or prosecute any alcohol or drug abuse patient.[facility] CenterIn the event this information is protected by the Federal Confidentiality of Alcohol and Drug Abuse Patient Records regulations: The Federal rules restrict any use of the information to criminally investigate or prosecute any alcohol or drug abuse patient.[facility] CenterIn the event this information is protected by the Federal Confidentiality of Alcohol and Drug Abuse Patient Records regulations: The Federal rules restrict any use of the information to criminally investigate or prosecute any alcohol or drug abuse patient.[facility] CenterIn the event this information is protected by the Federal Confidentiality of Alcohol and Drug Abuse Patient Records regulations: The Federal rules restrict any use of the information to criminally investigate or prosecute any alcohol or drug abuse patient.[facility] Reason for Visit (unrecogniz ed section and content) Reason Comments Consult superficial thrombos is Specialty Diagnoses / Procedures Referred By Contnai t Referred To Contact Vascular Medicine Diagnoses 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 Procedures CONSULT TO VASCULAR MEDICINE OFFICE/OUTPATIENT CARE ONE AT [facility] 60-74 MINUTES Shimon Cota MD [address] [address] Referral ID Status Reason Start Date Expiration Date V isits Requested Visits Authorized [id number] Closed PCP Requested Referral 07/15/2021 07/15/2022 1 1 Reason Comments Follow Up Reason Onset Date Comments Refill Request 01/23/2022 Reason Comments Refill Request Care Teams (unrecognized sec tion and content) Saw Offbearer Relationship Specialty Start Date End Date Bonnie Monteiro MD PCP - General Internal Medicine 11/21/16 Shimon Cota MD [address] [place] [id number] Primary Staff Physician Cardiology 07/20/18 Saw Offbearer Relationship Specialty Start Date End Date Bonnie Monteiro MD PCP - General Internal Medicine 11/21/16 Shimon Cota MD [address] [address] Primary Staff Physician Cardiology 07/20/18 Saw Offbearer Relationship Specialty Start Date End Date Bonnie Monteiro MD PCP - General Internal Medicine 11/21/16 Shimon Cota MD [address] [address] Primary Staff Physician Cardiology 07/20/18 Saw Offbearer Relationship Specialty Start Date End Date Bonnie Monteiro MD PCP - General Internal Medicine 11/21/16 Shimon Cota MD [address] [address] Primary Staff Physician Cardiology 07/20/18 Saw Offbearer Relationship Specialty Start Date End Date Bonnie Monteiro MD PCP - General Internal Medicine 11/21/16 Shimon Cota MD [address] [address] Primary Staff Physician Cardiology 07/20/18 Team Status: Active Member Role Status Dates Dr. Bonnie Monteiro MD Family Provider Active Cortney Villafuerte DIRECTOR OF NURSING-C Primary Care Provider Active Team Status: Active Member Role Status Dates Cortney Villafuerte NP-C Primary Care Provider Active Dr. Allen Crabtree MD Attending Provider Active Team Status: Inactive Member Role Status Dates Dr. Bonnie Monteiro MD Primary Care Provider Active Cortney Villafuerte NP-C Attending Provider, Referring Prov ider Active Team Status: Active Member Role Status Dates Cortney Villafuerte DIRECTOR OF NURSING-C Primary Care Provider, Attending P rebecca Active Team Status: Inactive Member Role Status Dates Cortney Villafuerte NP-C Primary Care Provider, Attending P rovijoey Active Saw Offbearer Relationship Specialty Start Date End Date Bonnie Monteiro MD PCP - General Internal Medicine 11/21/16 Shimon Cota MD [address] [address] Primary Staff Physician Cardiology 07/20/18 Saw Offbearer Relationship Specialty Start Date End Date Bonnie Monteiro MD PCP - General Internal Medicine 11/21/16 Shimon Cota MD [address] [id number] Primary Staff Physician Cardiology 07/20/18 Saw Offbearer Relationship Specialty Start Date End Date Bonnie Monteiro MD PCP - General Internal Medicine 11/21/16 Shimon Cota MD [address] [place] [address] Primary Staff Physician Cardiology 07/20/18 Saw Offbearer Relationship Specialty Start Date End Date Bonnie Monteiro MD PCP - General Internal Medicine 11/21/16 Shimon Cota MD [address] [address] Primary Staff Physician Cardiology 07/20/18 Goals (unrecognized section and content) Goals may be documented in a n alternate sectionGoals may be documented in an alternate section FOR RECORDS PERTAINING TO PATIENTS WHO ARE [...] BE BASED ON THE PRIMARY CLINICAL RECORDS. [facility]. provides no warranty or guarantee of the accuracy or completeness of information in this document.
--- NOTE | 2024-12-22 07:32 | VDLE_ITS ---
Reason For Study Reason For Study: HX LLE DVT RIGHT LEFT CFV is compressible, spontaneous, competent and GSV is normal. demonstrates pulsatile venous flow. CFV and SFJ are PARTIALLY COMPRESSIBLE with bright Procedure intraluminal echoes consistent with CHRONIC DVT. This is a venous duplex using B-mode, color flow and Pulsatile venous flow is noted. spectral Doppler. Deep Fem V is PARTIALLY COMPRESSIBLE with bright Exam performed in department. intraluminal echoes consistent with CHRONIC DVT. The exam was diagnostic. FV is PARTIALLY COMPRESSIBLE with bright intraluminal echoes consistent with CHRONIC DVT. Pulsatile Venous flow is noted PopV is PARTIALLY COMPRESSIBLE with bright intraluminal echoes consistent with CHRONIC DVT. Vessel demonstrates reflux for greater than 1 second. T/P Trunk is PARTIALLY COMPRESSIBLE with bright intraluminal echoes consistent with CHRONIC DVT. PTV is compressible. LT PerV is compressible. VL/Venous Duplex US, Unilateral Interpretation Summary Chronic deep vein thrombosis noted in the left common femoral vein, saphenofemo ral junction, profunda femoral vein, femoral vein, popliteal vein, tibioperoneal trunk vein Ordering Physician: Cortney Villafuerte Referring Physician: Cortney Villafuerte Performed By: Jer Mckoy RVT
== END | disposition home or self-care (01) ==
PROVIDERS: PCP Nurse Practitioner Family; Referring Provider Nurse Practitioner Family; Visit Provider Nurse Practitioner Family
DX: I82.402 Acute embolism and thrombosis of unspecified deep veins of left lower extremity (principal); Z86.718 Personal history of other venous thrombosis and embolism
CPT/HCPCS: 93971

== ENCOUNTER → 2025-03-07 | Outpatient (CLI) | payer MEDICARE, SELFPAY ==
[2025-03-07 12:21] LABS: Hematocrit 42.8 % (40-54); Hemoglobin 14.4 g/dL (13.0-16.5); Immature Granulocytes Count 0.060 X10^3/uL (0.0-0.0); Mean Corp Hgb Conc 33.6 g/dL (32-36); Mean Corpuscular Volume 90.7 fL (80-94); Mean Platelet Vol. 10.5 fl (6.2-12.0); NRBC Flagged by Analyzer 0 % (0-5); Platelet Count 169 K/mm3 (150-450); RBC Distribution Width CV 14.2 % (11.6-14.6); RBC Distribution Width SD 47.5 fl (35.1-43.9); Red Blood Count 4.72 M/mm3 (4.6-6.2); White Blood Count 9.7 K/mm3 (4.4-11.0)
[2025-03-07 13:09] LABS: AST(SGOT) 27 U/L (<=37); Alanine Aminotransfer ALT/SGPT 23 U/L (<=46); Albumin, Serum 4.2 g/dL (3.4-4.8); Alkaline Phosphatase 59 U/L (40-129); Anion Gap 12 (5-15); BUN 28 mg/dL (4-19); BUN/Creat Ratio 20.4 RATIO (10-20); Calcium,Total 9.8 mg/dL (7.6-11.0); Carbon Dioxide 23.4 mmol/L (21.0-32.0); Chloride 103 mmol/L (98-108); Cholesterol 203 mg/dL (<=200); Globulin 2.6 g/dL (2.2-4.2); Glucose 100 mg/dL (70-99); Low Density Lipoprotein Calc. 124 mg/dL; PSA,Total - Annual Screen 7.08 ng/mL (0.02-4.00); Potassium 3.9 mmol/L (3.3-5.1); Triglycerides 193 mg/dL; Very Low Density Lipoprotein 39 mg/dL (5-40); cholesterol:hdl ratio screen 4.57
== END | disposition home or self-care (01) ==
LOC: BFHLAB 10:40
PROVIDERS: PCP Nurse Practitioner Family; Visit Provider Nurse Practitioner Family
DX: I10 Essential (primary) hypertension (principal); E78.5 Hyperlipidemia, unspecified; Z12.5 Encounter for screening for malignant neoplasm of prostate
CPT/HCPCS: 36415; 80053; 80061; 84153; 85025; G0103

== ENCOUNTER → 2025-03-17 | Outpatient (CLI) | payer MEDICARE, SELFPAY ==
--- NOTE | 2025-03-17 08:45 | EKG12_ITS ---
Test Reason : HTN Blood Pressure : */* mmHG Vent. Rate : 83 BPM Atrial Rate : 357 BPM P-R Int : * ms QRS Dur : 106 ms QT Int : 384 ms P-R-T Axes : * -73 86 degrees QTcB Int : 451 ms Atrial fibrillation Left axis deviation Inferior infarct , age undetermined Possible Anterolateral infarct , age undetermined Abnormal ECG Confirmed by REJI JC, RENO ([id number]), food editor MADHURI BARTON ([id number]) on 03/17/2025 2:37:38 PM Referred By: Cortney Villafuerte Confirmed By: RENO MENDOZA MD
== END | disposition home or self-care (01) ==
LOC: PSN 08:43
PROVIDERS: PCP Nurse Practitioner Family; Referring Provider Nurse Practitioner Family; Visit Provider Nurse Practitioner Family
DX: Z95.2 Presence of prosthetic heart valve (principal); I25.10 Atherosclerotic heart disease of native coronary artery without angina pectoris
CPT/HCPCS: 93005

== ENCOUNTER → 2025-03-22 | Outpatient (CLI) | payer MEDICARE, SELFPAY ==
--- NOTE | 2025-03-22 09:45 | MRI_ITS ---
PROCEDURE: SPINE LUMBAR (ROUTINE) 03/22/2025 REASON FOR EXAM: RADICULOPATHY, LUMBAR REGION TECHNIQUE: Procedure Code: MRISPL Modality: MR Procedure: SPINE LUMBAR (ROUTINE) COMPARISON: None. FINDINGS: Vertebrae: Preserved in height. Modic changes type 1 at L4-L5. Alignment: Anterolisthesis L4 on L5 by 2 mm. Conus Medullaris: Unremarkable. L1-2: Unremarkable. L2-3: A Schmorl node at the lower endplate of L2. Small disc bulge. Facet joint arthropathy. Mild inferior bilateral foramina stenosis. No significant canal stenosis. L3-4: Disc bulge. Facet joint arthropathy. Ligamentum flavum hypertrophy. Mild bilateral foramina stenosis. No significant canal stenosis. L4-5: Uncovered disc bulge. Facet joints arthropathy. Ligamentum flavum hypertrophy. Narrowing of the subarticular space is. Mild bilateral foramina stenosis. Moderate canal stenosis. L5-S1: Disc bulge. Facet joint arthropathy with fluid effusion. Mild bilateral foramina stenosis. No canal stenosis. Sacrum: Unremarkable. MRI/Spine Lumbar (Routine) IMPRESSION: Degenerate changes moderate canal stenosis at L4-L5. Reading Location: [id number]
== END | disposition home or self-care (01) ==
LOC: OPMRI 09:38
PROVIDERS: PCP Nurse Practitioner Family; Referring Provider Pain Medicine Interventional Pain Medicine; Visit Provider Pain Medicine Interventional Pain Medicine
DX: M54.16 Radiculopathy, lumbar region (principal)
CPT/HCPCS: 72148

== ENCOUNTER → 2025-04-17 | Outpatient (CLI) | payer MEDICARE, SELFPAY ==
--- NOTE | 2025-04-17 11:58 | ECHOD_ITS ---
Reason For Study Reason For Study: ASHD/CAD Procedure This was a 2D Doppler, Color Flow transthoracic echocardiogram. Exam performed in department. Left Ventricle Normal LV size. Mild concentric left ventricular hypertrophy. The left ventricular ejection fraction is 65 %. No regional wall motion abnormalities noted. Right Ventricle Normal RV size. Normal systolic function. Atria Normal left atrium. Normal right atrium. Mitral Valve Normal mitral valve. Tricuspid Valve Normal tricuspid valve. Mild (1+) tricuspid valve insufficiency. Pulmonary artery systolic pressure is 35 mmHg. Aortic Valve Peak aortic valve gradient 48 mmHg. Mean aortic valve gradient 27 mmHg. Moderate aortic stenosis. Pulmonic Valve Normal pulmonic valve. Great Vessels Normal aortic root. The pulmonary artery is normal size. Inferior vena cava collapse with respiration. Pericardium/Pleural No pericardial effusion. MMode/2D Measurements & Calculations LVIDd: 3.7 cm IVSd: 1.2 cm Ao root diam: 3.3 cm LVIDs: 2.7 cm LVPWd: 1.3 cm FS: 25.7 % LAV(MOD-bp): 65.0 ml LVAd ap4: 25.8 cm2 SV(MOD-sp4): 49.0 ml LAV(MOD-bp) Indexed: 33.9 ml/m2 LVLd ap4: 7.3 cm SI(MOD-sp4): 25.5 ml/m2 LAV(MOD-sp2): 64.9 ml EDV(MOD-sp4): 77.7 ml LAV(MOD-sp4): 62.5 ml EDV(sp4-el): 77.0 ml LVAs ap4: 13.7 cm2 LVLs ap4: 6.4 cm ESV(MOD-sp4): 28.8 ml ESV(sp4-el): 24.8 ml EF(MOD-sp4): 63.0 % EF(sp4-el): 67.7 % SV(sp4-el): 52.2 ml LA A4 area: 20.2 cm2 LA dimension(2D): 4.2 cm RA A4 area: 21.2 cm2 Time Measurements MV dec time: 0.20 sec Doppler Measurements & Calculations MV E max taylor: 112.4 cm/sec Ao V2 max: 352.3 cm/sec PA V2 max: 89.7 cm/sec Ao max P.7 mmHg PA V2 mean: 56.5 cm/sec Ao V2 mean: 241.9 cm/sec Ao mean P.2 mmHg Ao V2 VTI: 69.0 cm TR max taylor: 282.7 cm/sec TR max P.0 mmHg ECHO/Echo Complete Interpretation Summary Normal LV size. The left ventricular ejection fraction is 65 %. Mean aortic valve gradient 27 mmHg. Moderate aortic stenosis. Mild concentric left ventricular hypertrophy. Ordering Physician: Cortney Villafuerte Referring Physician: Cortney Villafuerte Performed By: Paula Nolan RCS
== END | disposition home or self-care (01) ==
PROVIDERS: PCP Nurse Practitioner Family; Referring Provider Nurse Practitioner Family; Visit Provider Nurse Practitioner Family
DX: I25.10 Atherosclerotic heart disease of native coronary artery without angina pectoris (principal); Z95.2 Presence of prosthetic heart valve
CPT/HCPCS: 93306